=== PATIENT | female | born 1930 | race Asian ===

== ENCOUNTER 2017-01-12 07:19 | Inpatient (IN) | payer MEDICARE, MEDICAID ==
[2017-01-12 08:19] LABS: VENOUS BLOOD BASE EXCESS 0.3 mmol/L; VENOUS BLOOD HCO3 24.1 mmol/L (20-32); VENOUS BLOOD PCO2 36.4 mmHg (35-63); VENOUS BLOOD PH 7.44 (7.30-7.42)
[2017-01-12 08:22] LABS: ABSOLUTE BASOPHILS # (AUTO) 0.2 10^3/uL (0.0-0.2); ABSOLUTE EOSINOPHILS # (AUTO) 0.1 10^3/uL (0.0-0.6); ABSOLUTE LYMPHOCYTES (AUTO) 3.1 10^3/uL (0.5-4.7); ABSOLUTE MONOCYTES (AUTO) 1.3 10^3/uL (0.1-1.4); ABSOLUTE NEUT (AUTO) 9.9 10^3/uL (1.7-8.2); BASOPHILS % (AUTO) 1.2 % (0-2); EOSINOPHILS % (AUTO) 0.9 % (0-6); HEMATOCRIT 40.5 % (36.0-47.0); HEMOGLOBIN 13.2 g/dL (12.0-15.5); HGB HCT DIFFERENCE -0.9; LYMPHOCYTES % (AUTO) 21.4 % (13-45); MEAN CORPUSCULAR HGB CONC 32.7 g/dL (32.0-36.0); MEAN CORPUSCULAR VOLUME 89 fl (80-97); MONOCYTES % (AUTO) 9.2 % (3-13); RED BLOOD COUNT 4.57 10^6/uL (3.72-5.28); SEGMENTED NEUTROPHILS % (AUTO) 67.3 % (42-78); WHITE BLOOD COUNT 14.7 10^3/uL (4.0-10.5)
[2017-01-12] MEDS ORDERED: IPRATROPIUM/ALBUTEROL 0.5-2.5 MG/3 ML AMPUL NEB ONE ×3 (08:23→08:24)
[2017-01-12 08:25] LABS: PROTHROMBIN TIME 12.6 SEC (11.4-15.4)
--- NOTE | 2017-01-12 08:31 | EKG REPORT ---
SEVERITY:- ABNORMAL ECG - SINUS TACHYCARDIA ATRIAL PREMATURE COMPLEX NONSPECIFIC REPOL ABNORMALITY, DIFFUSE LEADS : Confirmed by: Martin Hamilton MD 12-Jan-2017 08:29:36
[2017-01-12 08:39] LABS: ALANINE AMINOTRANSFERASE 25 U/L (9-52); ALBUMIN 4.5 g/dL (3.5-5.0); ALKALINE PHOSPHATASE 112 U/L (38-126); ANION GAP 14 (5-19); ASPARTATE AMINO TRANSFERASE 31 U/L (14-36); BLOOD UREA NITROGEN 9 mg/dL (7-20); CALCIUM 9.5 mg/dL (8.4-10.2); CARBON DIOXIDE 25 mmol/L (22-30); CHLORIDE 101 mmol/L (98-107); CREATININE RESULT 0.93 mg/dL (0.52-1.25); GLUCOSE 128 mg/dL (75-110); SODIUM 139.9 mmol/L (137-145); TOTAL PROTEIN 8.4 g/dL (6.3-8.2)
[2017-01-12] MEDS ORDERED: METHYLPREDNISOLONE INJ 125 MG/2 ML SDV IV ONE (08:43)
--- NOTE | 2017-01-12 09:23 | ER Document Report ---
ED General - General Chief Complaint: Breathing Difficulty Stated Complaint: SHORTNESS OF BREATH Mode of Arrival: Ambulatory Information source: Patient Notes: 86-year-old female presents with complaints of shortness breath wheezing over the past few days with productive yellow sputum. Patient denies any fevers or chills TRAVEL OUTSIDE OF THE [place] IN LAST 30 DAYS: No - HPI Onset: Other - Three-day duration Onset/Duration: Persistent Quality of pain: Achy Severity: Mild Pain Level: 1 Associated symptoms: Shortness of breath Exacerbated by: Movement, Walking Relieved by: Denies Similar symptoms previously: Yes Recently seen / treated by doctor: Yes - Related Data Allergies/Adverse Reactions: No Known Allergies Allergy (Verified 01/12/17 07:24) Home Medications: Current Home Medications Amlodipine Besylate [Norvasc 5 mg Tablet] 5 mg PO DAILY 01/12/17 [History] Simvastatin [Zocor 20 mg Tablet] 20 mg PO QHS 01/12/17 [History] Past Medical History - Social History Smoking Status: Never Smoker Cigarette use (# per day): No Chew tobacco use (# tins/day): No Smoking Education Provided: No Drug Abuse: None Family History: Reviewed & Not Pertinent Patient has suicidal ideation: No Patient has homicidal ideation: No - Past Medical History Cardiac Medical History: Reports: Hx Hypercholesterolemia, Hx Hypertension Denies: Hx Coronary Artery Disease, Hx Heart Attack Pulmonary Medical History: Denies: Hx Asthma, Hx Bronchitis, Hx COPD, Hx Pneumonia Neurological Medical History: Reports: Hx Cerebrovascular Accident - 2008 right side weaker. Denies: Hx Seizures Renal/ Medical History: Denies: Hx Peritoneal Dialysis Musculoskeltal Medical History: Reports Hx Arthritis Past Surgical History: Denies: Hx Hysterectomy - Immunizations Hx Diphtheria, Pertussis, Tetanus Vaccination: No Review of Systems - Review of Systems Notes: REVIEW OF SYSTEMS: CONSTITUTIONAL : Denies fever, chills, or sweats. Denies recent illness. EENT: Denies eye, ear, throat, or mouth pain or symptoms. Denies nasal or sinus congestion or discharge. Denies throat, tongue, or mouth swelling or difficulty swallowing. CARDIOVASCULAR: Denies chest pain. Denies palpitations or racing or irregular heart beat. Denies ankle edema. RESPIRATORY: Admits shortness of breath and yellow productive cough GASTROINTESTINAL: Denies abdominal pain or distention. Denies nausea, vomiting , or diarrhea. Denies blood in vomitus, stools, or per rectum. Denies black, tarry stools. Denies constipation. GENITOURINARY: Denies difficulty urinating, painful urination, burning, frequency, blood in urine, or discharge. FEMALE GENITOURINARY: Denies vaginal bleeding, heavy or abnormal periods, irregular periods. Denies vaginal discharge or odor. MUSCULOSKELETAL: Denies back or neck pain or stiffness. Denies joint pain or swelling. SKIN: Denies rash, lesions or sores. HEMATOLOGIC : Denies easy bruising or bleeding. LYMPHATIC: Denies swollen, enlarged glands. NEUROLOGICAL: Denies confusion or altered mental status. Denies passing out or loss of consciousness. Denies dizziness or lightheadedness. Denies headache. Denies weakness or paralysis or loss of use of either side. Denies problems with gait or speech. Denies sensory loss, numbness, or tingling. Denies seizures. PSYCHIATRIC: Denies anxiety or stress. Denies depression, suicidal ideation, or homicidal ideation. ALL OTHER SYSTEMS REVIEWED AND NEGATIVE. Dictation was performed using [employer] voice recognition software PHYSICAL EXAMINATION: GENERAL: Well-appearing, well-nourished and in no acute distress. HEAD: Atraumatic, normocephalic. EYES: Pupils equal round and reactive to light, extraocular movements intact, conjunctiva are normal. ENT: Nares patent, oropharynx clear without exudates. Moist mucous membranes. NECK: Normal range of motion, supple without lymphadenopathy LUNGS: Rhonchi noted with end expiratory wheezing all throughout HEART: Tachycardic ABDOMEN: Soft, nontender, nondistended abdomen. No guarding, no rebound. No masses appreciated. Female : deferred Musculoskeletal: Normal range of motion, no pitting or edema. No cyanosis. NEUROLOGICAL: Cranial nerves grossly intact. Normal speech, normal gait. Normal sensory, motor exams PSYCH: Normal mood, normal affect. SKIN: Warm, Dry, normal turgor, no rashes or lesions noted. Physical Exam - Vital signs Vitals: Temp Pulse Resp BP Pulse Ox 98.9 F 108 H 32 H 164/71 H 95 01/12/17 07:25 01/12/17 07:25 01/12/17 07:25 01/12/17 07:25 01/12/17 07:25 Course - Re-evaluation Re-evalutation: 01/12/17 12:40 Given that patient has an elevated white count productive cough I believe she has a component pneumonia even though chest x-ray is negative, patient was given breathing treatments and notes significant improvement in her breathing however when ambulating heart rate is still in the 130s to 140s. Patient will be admitted to her primary care physician - Vital Signs Vital signs: Temp Pulse Resp BP Pulse Ox 98.9 F 108 H 30 H 164/71 H 96 01/12/17 07:25 01/12/17 07:25 01/12/17 08:00 01/12/17 07:25 01/12/17 08:01 - Laboratory Result Diagrams: 01/12/17 08:03 01/12/17 08:03 Laboratory results interpreted by me: 01/12/17 01/12/17 01/12/17 07:54 08:03 08:03 WBC 14.7 H Absolute Neutrophils 9.9 H VBG pH Est GFR (Non-Af Amer) 57 L Glucose 128 H POC Glucose 123 H Total Protein 8.4 H 01/12/17 08:03 WBC Absolute Neutrophils VBG pH 7.44 H Est GFR (Non-Af Amer) Glucose POC Glucose Total Protein - Diagnostic Test Radiology reviewed: Image reviewed, Reports reviewed - EKG Interpretation by Me EKG shows normal: Sinus rhythm, [place], Intervals, QRS Complexes Rate: Tachycardia - Consults islas Time consulted: 10:03 Reason for consultation: 01/12/17 10:03 admission Discharge - Discharge Clinical Impression: Tachycardia COPD (chronic obstructive pulmonary disease) Qualifiers: COPD type: unspecified COPD Qualified Code(s): J44.9 - Chronic obstructive pulmonary disease, unspecified Pneumonia Qualifiers: Pneumonia type: due to unspecified organism Laterality: unspecified laterality Lung location: unspecified part of lung Qualified Code(s): J18.9 - Pneumonia, unspecified organism Condition: Stable Disposition: ADMITTED INPATIENT Admitting Provider: Is[facility] Unit Admitted: Telemetry Referrals: TERESITA ISLAS MD [Primary Care Provider] - Follow up as needed
[2017-01-12] MEDS ORDERED: NORMAL SALINE 1000 ML 1,000 ML IV ONE (11:04)
[2017-01-12] MEDS ORDERED: CEFTRIAXONE 1 GM/D5W RTU 50 ML IV ONE (11:04)
[2017-01-12] MEDS: LEVALBUTEROL HCL NEB 0.63 MG/3 ML AMPUL NEB SCH ×3 (12:55→19:40)
[2017-01-12 13:36] LABS: CREATINE KINASE MB 0.84 ng/mL (<4.55)
[2017-01-12 13:40] LABS: TROPONIN I < 0.012 ng/mL
[2017-01-12 13:52] LABS: APPEARANCE,URINE SLIGHTLY-CLOUDY; BILIRUBIN,URINE NEGATIVE (NEGATIVE); GLUCOSE, URINE NEGATIVE (NEGATIVE); KETONES,URINE NEGATIVE (NEGATIVE); LEUKOCYTE ESTERASE,URINE NEGATIVE (NEGATIVE); NITRITE,URINE NEGATIVE (NEGATIVE); PROTEIN,URINE NEGATIVE (NEGATIVE); URINE SPECIFIC GRAVITY 1.009; UROBILINOGEN,URINE NEGATIVE mg/dL (<2.0)
[2017-01-12] MEDS: NORMAL SALINE 1000 ML 1,000 ML IV PRN ×2 (13:55→21:50)
[2017-01-12] MEDS ORDERED: METHYLPREDNISOLONE INJ 40 MG/1 ML SDV IV SCH (14:00)
[2017-01-12] MEDS ORDERED: AMLODIPINE BESYLATE 5 MG TABLET PO ONE (15:00)
[2017-01-12] MEDS: ACETAMINOPHEN 325 MG TABLET PO PRN ×2 (16:14→21:52)
[2017-01-12] MEDS: LANSOPRAZOLE 15 MG TAB.RAP.DR PO SCH (16:50)
--- NOTE | 2017-01-12 17:01 | PDOC H&P ---
History of Present Illness Admission Date/PCP: 01/12/17 11:58 TERESITA HICKS MD Patient complains of: sob/whezzing /cough History of Present Illness: MATHEW BOUDREAUX is a 86 year old female This is a 86-year-old female came to the emergency department with a complaint of shortness of the breath cough congestions and tachycardic for the last several days. Patient was seen in the office last week with a cough and congestions and patient was prescribed Augmentin and some allergy medications but patient is not responds very well. In the emergency department patient's chest x-ray shows some interstitial lung disease and patient's white count was elevated and patient was hypoxic and wheezing and patient was given the Solu- Medrol and IV antibiotic. When I saw the patient's patient is currently doing fair and patient's was given IV fluid and heart rate is also coming down we will admit the patient's for the bronchitis and possible pneumonia and further evaluations. Past Medical History Cardiac Medical History: Reports: Hyperlipidema, Hypertension Denies: Coronary Artery Disease, Myocardial Infarction Pulmonary Medical History: Denies: Asthma, Bronchitis, Chronic Obstructive Pulmonary Disease (COPD), Pneumonia Neurological Medical History: Reports: Ischemic CVA Denies: Seizures GI Medical History: Reports: Gastroesophageal Reflux Disease, Peptic Ulcer Disease Musculoskeltal Medical History: Reports: Arthritis Hematology: Reports: Anemia Past Surgical History Past Surgical History: Denies: Hysterectomy Social History Smoking Status: Never Smoker Family History Family History: Reviewed & Not Pertinent Parental Family History Reviewed: Yes Children Family History Reviewed: Yes Sibling(s) Family History Reviewed.: Yes Medication/Allergy Home Medications: Amlodipine Besylate [Norvasc 5 mg Tablet] 5 mg PO DAILY 01/12/17 Simvastatin [Zocor 20 mg Tablet] 20 mg PO QHS 01/12/17 Allergies/Adverse Reactions: No Known Allergies Allergy (Verified 01/12/17 07:24) Review of Systems Constitutional: PRESENT: fatigue, weakness Cardiovascular: PRESENT: dyspnea on exertion Respiratory: PRESENT: cough Gastrointestinal: ABSENT: as per HPI, abdominal pain, bloating, coffee ground emesis, constipation, diarrhea, dysphagia, heartburn, hematemesis, hematochezia , melena, nausea, vomiting, other Genitourinary: ABSENT: as per HPI, difficulty urinating, dysuria, hematuria, nocturia, other Neurological: ABSENT: as per HPI, abnormal gait, abnormal movements, abnormal speech, confusion, convulsions, dizziness, focal weakness, frequent falls, lack of coordination, memory loss, numbness, paresthesias, restless legs, syncope, tingling, tremor(s), vertigo, weakness, other Psychiatric: ABSENT: as per HPI, anxiety, depression, hallucinations, homidical ideation, suicidal ideation, other Physical Exam Vital Signs: Temp Pulse Resp BP Pulse Ox 98.4 F 102 H 11 L 138/60 H 100 01/12/17 13:25 01/12/17 13:25 01/12/17 13:25 01/12/17 13:25 01/12/17 13:25 General appearance: PRESENT: no acute distress, well-developed, well-nourished Head exam: PRESENT: atraumatic, normocephalic Eye exam: PRESENT: conjunctiva pink, EOMI, PERRLA. ABSENT: scleral icterus Ear exam: PRESENT: normal external ear exam Mouth exam: PRESENT: moist, tongue midline Neck exam: PRESENT: full ROM. ABSENT: carotid bruit, JVD, lymphadenopathy, thyromegaly Respiratory exam: PRESENT: decreased breath sounds, wheezes Cardiovascular exam: PRESENT: RRR. ABSENT: diastolic murmur, rubs, systolic murmur Pulses: PRESENT: normal dorsalis pedis pul, +2 pedal pulses bilateral Vascular exam: PRESENT: normal capillary refill GI/Abdominal exam: PRESENT: normal bowel sounds, soft. ABSENT: distended, guarding, mass, organolmegaly, rebound, tenderness Rectal exam: PRESENT: deferred Extremities exam: ABSENT: pedal edema Neurological exam: PRESENT: alert, awake, oriented to person, oriented to place , oriented to time, oriented to situation, CN II-XII grossly intact. ABSENT: motor sensory deficit Psychiatric exam: PRESENT: appropriate affect, normal mood. ABSENT: homicidal ideation, suicidal ideation Skin exam: PRESENT: dry, intact, warm. ABSENT: cyanosis, rash Results Laboratory Results: 01/12/17 13:35 Urine Color YELLOW Urine Appearance SLIGHTLY-CLOUDY Urine pH 6.0 Ur Specific [place] 1.009 Urine Protein NEGATIVE Urine Glucose (UA) NEGATIVE Urine Ketones NEGATIVE Urine Blood NEGATIVE Urine Nitrite NEGATIVE Ur Leukocyte Esterase NEGATIVE Urine WBC (Auto) 1 Urine RBC (Auto) 1 Impressions: Chest/Abdomen CTA 01/12/17 00:00 IMPRESSION: NORMAL CTA OF THE CHEST. NO PULMONARY EMBOLI. Chest X-Ray 01/12/17 07:29 IMPRESSION: No acute cardiopulmonary findings. Mild chronic interstitial lung disease pattern. Assessment & Plan - Diagnosis (1) COPD (chronic obstructive pulmonary disease) Qualifiers: COPD type: unspecified COPD Qualified Code(s): J44.9 - Chronic obstructive pulmonary disease, unspecified Is this a current diagnosis for this admission?: YesPlan: We will start the patient on the Solu-Medrol and nebulizer treatment (2) Acute bronchitis Qualifiers: Bronchitis organism: unspecified organism Qualified Code(s): J20.9 - Acute bronchitis, unspecified Is this a current diagnosis for this admission?: YesPlan: Start the patient on IV antibiotic nebulizer treatment and continues to monitor (3) Hypertension Is this a current diagnosis for this admission?: YesPlan: Currently stable (4) Peptic ulcer disease Is this a current diagnosis for this admission?: YesPlan: Start the patient on the Pepcid (5) Pneumonia Qualifiers: Pneumonia type: due to unspecified organism Laterality: unspecified laterality Lung location: unspecified part of lung Qualified Code(s): J18.9 - Pneumonia, unspecified organism Is this a current diagnosis for this admission?: YesPlan: Most likely leukocytosis with outpatients failure of the Augmentin most likely patient underlying some pneumonia with the bronchitis (6) Respiratory distress Is this a current diagnosis for this admission?: YesPlan: Most likely a from the bronchitis is getting better patient's CT angiogram is negative. - Time Time Spent: 30 to 50 Minutes Medications reviewed and adjusted accordingly: Yes Anticipated discharge: Home Within: Other - Inpatient Certification Medical Necessity: Failure to Improve With Outpatient Therapy, Need for Nebulizer Therapy and Monitoring of Response, Need for IV Antibiotics Post Hospital Care: D/C Mgmt Consultant Documentation - Plan Summary Plan Summary: Admit the [facility] start the patient on IV antibiotic respiratory treatments and steroid. Patient's CT angiogram is negative and initial cardiac enzymes also negative. We will continue to monitor the patient's discussed with the patient's family
[2017-01-12] MEDS: METHYLPREDNISOLONE INJ 125 MG/2 ML SDV IV SCH (17:38)
[2017-01-12] MEDS: AZITHROMYCIN 250 MG TABLET PO SCH (17:38)
[2017-01-12 18:42] LABS: CREATINE KINASE MB 1.05 ng/mL (<4.55)
[2017-01-12 18:47] LABS: TROPONIN I < 0.012 ng/mL
[2017-01-12] MEDS: SIMVASTATIN 10 MG TABLET PO SCH (21:51)
[2017-01-12] MEDS: CEFEPIME 1 GM/D5W RTU 50 ML IV SCH (21:55)
[2017-01-13] MEDS: LEVALBUTEROL HCL NEB 0.63 MG/3 ML AMPUL NEB SCH ×6 (00:13→20:01)
[2017-01-13 00:58] LABS: CREATINE KINASE MB 2.15 ng/mL (<4.55)
[2017-01-13 01:00] LABS: TROPONIN I < 0.012 ng/mL
[2017-01-13] MEDS: METHYLPREDNISOLONE INJ 125 MG/2 ML SDV IV SCH (02:13)
[2017-01-13] MEDS: LANSOPRAZOLE 15 MG TAB.RAP.DR PO SCH ×2 (05:23→17:07)
[2017-01-13] MEDS: ENOXAPARIN SODIUM INJ 40 MG/0.4 ML DISP.SYRIN SUBCUT SCH (07:49)
--- NOTE | 2017-01-13 08:04 | PDOC PROGRESS REPORT ---
Subjective Progress Note for:: 01/13/17 Subjective:: Patient is doing fair no other complaints of chest pain no shortness of the breath. Still have a cough productive wheezing is much better. Physical Exam Vital Signs: Temp Pulse Resp BP Pulse Ox 98.3 F 110 H 16 132/63 H 94 01/13/17 00:00 01/13/17 07:00 01/13/17 04:00 01/13/17 00:00 01/13/17 04:00 Intake & Output 01/12/17 01/13/17 01/14/17 06:59 06:59 06:59 Intake Total 1385 Balance 1385 Weight 52.3 kg General appearance: PRESENT: no acute distress, well-developed, well-nourished Head exam: PRESENT: atraumatic, normocephalic Eye exam: PRESENT: conjunctiva pink, EOMI, PERRLA. ABSENT: scleral icterus Ear exam: PRESENT: normal external ear exam Mouth exam: PRESENT: moist, tongue midline Neck exam: PRESENT: full ROM. ABSENT: carotid bruit, JVD, lymphadenopathy, thyromegaly Respiratory exam: PRESENT: clear to auscultation nakia Cardiovascular exam: PRESENT: RRR. ABSENT: diastolic murmur, rubs, systolic murmur Pulses: PRESENT: normal dorsalis pedis pul, +2 pedal pulses bilateral Vascular exam: PRESENT: normal capillary refill GI/Abdominal exam: PRESENT: normal bowel sounds, soft. ABSENT: distended, guarding, mass, organolmegaly, rebound, tenderness Rectal exam: PRESENT: deferred Neurological exam: PRESENT: alert, awake, oriented to person, oriented to place , oriented to time, oriented to situation, CN II-XII grossly intact. ABSENT: motor sensory deficit Psychiatric exam: PRESENT: appropriate affect, normal mood. ABSENT: homicidal ideation, suicidal ideation Skin exam: PRESENT: dry, intact, warm. ABSENT: cyanosis, rash Results Laboratory Results: 01/12/17 13:35 Urine Color YELLOW Urine Appearance SLIGHTLY-CLOUDY Urine pH 6.0 Ur Specific [place] 1.009 Urine Protein NEGATIVE Urine Glucose (UA) NEGATIVE Urine Ketones NEGATIVE Urine Blood NEGATIVE Urine Nitrite NEGATIVE Ur Leukocyte Esterase NEGATIVE Urine WBC (Auto) 1 Urine RBC (Auto) 1 01/12/17 01/12/17 01/13/17 18:05 18:05 00:25 Creatine Kinase 138 H 164 H CK-MB (CK-2) 1.05 Troponin I < 0.012 01/13/17 00:25 Creatine Kinase CK-MB (CK-2) 2.15 Troponin I < 0.012 Impressions: Chest/Abdomen CTA 01/12/17 00:00 IMPRESSION: NORMAL CTA OF THE CHEST. NO PULMONARY EMBOLI. Chest X-Ray 01/12/17 07:29 IMPRESSION: No acute cardiopulmonary findings. Mild chronic interstitial lung disease pattern. Assessment & Plan - Diagnosis (1) COPD (chronic obstructive pulmonary disease) Qualifiers: COPD type: unspecified COPD Qualified Code(s): J44.9 - Chronic obstructive pulmonary disease, unspecified Is this a current diagnosis for this admission?: YesPlan: decrease the IV steroid and if remained stable [place] switched to by mouth steroid in the morning (2) Acute bronchitis Qualifiers: Bronchitis organism: unspecified organism Qualified Code(s): J20.9 - Acute bronchitis, unspecified Is this a current diagnosis for this admission?: YesPlan: Continues IV antibiotic (3) Hypertension Is this a current diagnosis for this admission?: YesPlan: Currently stable (4) Peptic ulcer disease Is this a current diagnosis for this admission?: YesPlan: Start the patient on the Pepcid (5) Pneumonia Qualifiers: Pneumonia type: due to unspecified organism Laterality: unspecified laterality Lung location: unspecified part of lung Qualified Code(s): J18.9 - Pneumonia, unspecified organism Is this a current diagnosis for this admission?: YesPlan: Most likely leukocytosis with outpatients failure of the Augmentin most likely patient underlying some pneumonia with the bronchitis (6) Respiratory distress Is this a current diagnosis for this admission?: YesPlan: Most likely a from the bronchitis is getting better patient's CT angiogram is negative. - Time Time Spent with patient: 15-24 minutes Medications reviewed and adjusted accordingly: Yes Anticipated discharge: Home Within: within 48 hours - Inpatient Certification Medical Necessity: Need Close Monitoring Due to Risk of Patient Decompensation, Need for IV Antibiotics Post Hospital Care: D/C Ceramics Teacher Documentation - Plan Summary Plan Summary: Continues the current medications stop IV fluid and decrease the steroid and maybe is switch to by mouth in the morning
[2017-01-13 08:18] LABS: ABSOLUTE BASOPHILS # (AUTO) 0.1 10^3/uL (0.0-0.2); ABSOLUTE LYMPHOCYTES (AUTO) 1.8 10^3/uL (0.5-4.7); ABSOLUTE MONOCYTES (AUTO) 0.4 10^3/uL (0.1-1.4); ABSOLUTE NEUT (AUTO) 14.9 10^3/uL (1.7-8.2); BASOPHILS % (AUTO) 0.5 % (0-2); HEMATOCRIT 38.1 % (36.0-47.0); HEMOGLOBIN 12.4 g/dL (12.0-15.5); HGB HCT DIFFERENCE -0.9; LYMPHOCYTES % (AUTO) 10.5 % (13-45); MEAN CORPUSCULAR HEMOGLOBIN 29.6 pg (27.0-33.4); MEAN CORPUSCULAR HGB CONC 32.7 g/dL (32.0-36.0); MEAN CORPUSCULAR VOLUME 91 fl (80-97); MONOCYTES % (AUTO) 2.3 % (3-13); RED BLOOD COUNT 4.21 10^6/uL (3.72-5.28); RED CELL DISTRIBUTION WIDTH 14.4 % (11.5-14.0); SEGMENTED NEUTROPHILS % (AUTO) 86.7 % (42-78); WHITE BLOOD COUNT 17.1 10^3/uL (4.0-10.5)
[2017-01-13 09:01] LABS: ANION GAP 14 (5-19); BLOOD UREA NITROGEN 18 mg/dL (7-20); CALCIUM 9.7 mg/dL (8.4-10.2); CARBON DIOXIDE 21 mmol/L (22-30); CHLORIDE 109 mmol/L (98-107); GLUCOSE 155 mg/dL (75-110); MAGNESIUM 2.4 mg/dL (1.6-2.3); POTASSIUM 4.3 mmol/L (3.6-5.0); SODIUM 144.4 mmol/L (137-145)
[2017-01-13] MEDS: METHYLPREDNISOLONE INJ 40 MG/1 ML SDV IV SCH ×2 (09:24→17:07)
[2017-01-13] MEDS: GUAIFENESIN SYRP 200 MG/10 ML UDC PO PRN (09:24)
[2017-01-13] MEDS: AMLODIPINE BESYLATE 5 MG TABLET PO SCH (09:24)
[2017-01-13] MEDS: CEFEPIME 1 GM/D5W RTU 50 ML IV SCH ×2 (09:25→22:52)
[2017-01-13] MEDS: AZITHROMYCIN 250 MG TABLET PO SCH (17:07)
[2017-01-13] MEDS: SIMVASTATIN 10 MG TABLET PO SCH (22:52)
[2017-01-14] MEDS: LEVALBUTEROL HCL NEB 0.63 MG/3 ML AMPUL NEB SCH ×7 (00:01→23:27)
[2017-01-14] MEDS: METHYLPREDNISOLONE INJ 40 MG/1 ML SDV IV SCH ×3 (01:42→17:13)
[2017-01-14 05:43] LABS: HEMATOCRIT 37.2 % (36.0-47.0); HEMOGLOBIN 12.4 g/dL (12.0-15.5); MEAN CORPUSCULAR HEMOGLOBIN 29.8 pg (27.0-33.4); MEAN CORPUSCULAR HGB CONC 33.4 g/dL (32.0-36.0); MEAN CORPUSCULAR VOLUME 89 fl (80-97); RED BLOOD COUNT 4.16 10^6/uL (3.72-5.28); RED CELL DISTRIBUTION WIDTH 14.4 % (11.5-14.0); WHITE BLOOD COUNT 26.3 10^3/uL (4.0-10.5)
[2017-01-14] MEDS: LANSOPRAZOLE 15 MG TAB.RAP.DR PO SCH ×2 (05:58→17:14)
[2017-01-14] MEDS: GUAIFENESIN SYRP 200 MG/10 ML UDC PO PRN (05:58)
[2017-01-14 05:59] LABS: ANION GAP 16 (5-19); BLOOD UREA NITROGEN 26 mg/dL (7-20); CALCIUM 9.8 mg/dL (8.4-10.2); CARBON DIOXIDE 20 mmol/L (22-30); CHLORIDE 108 mmol/L (98-107); CREATININE RESULT 0.85 mg/dL (0.52-1.25); GLUCOSE 144 mg/dL (75-110); POTASSIUM 4.1 mmol/L (3.6-5.0); SODIUM 144.4 mmol/L (137-145)
[2017-01-14 06:08] LABS: BASOPHILS % (MANUAL) 0 % (0-2); EOSINOPHILS % (MANUAL) 0 % (0-6); LYMPHOCYTES % (MANUAL) 4 % (13-45); TOTAL CELLS COUNTED 100
[2017-01-14 06:11] LABS: ANISOCYTOSIS 1+; BURR CELLS 1+; OVALOCYTES 1+; POIKILOCYTOSIS 2+; TOXIC VACUOLATION PRESENT
[2017-01-14] MEDS: ENOXAPARIN SODIUM INJ 40 MG/0.4 ML DISP.SYRIN SUBCUT SCH (09:42)
[2017-01-14] MEDS: AMLODIPINE BESYLATE 5 MG TABLET PO SCH (09:43)
[2017-01-14] MEDS: CEFEPIME 1 GM/D5W RTU 50 ML IV SCH ×2 (09:44→21:44)
[2017-01-14] MEDS ORDERED: LEVALBUTEROL HCL NEB 0.63 MG/3 ML AMPUL NEB PRN (14:00)
--- NOTE | 2017-01-14 16:43 | PDOC PROGRESS REPORT ---
Subjective Progress Note for:: 01/14/17 Subjective:: Patient was seen by the bedside, he was admitted for COPD exacerbation, he has no new complaints today Physical Exam Vital Signs: Temp Pulse Resp BP Pulse Ox 98.9 F 76 16 140/63 H 96 01/14/17 11:50 01/14/17 14:00 01/14/17 12:46 01/14/17 11:50 01/14/17 11:50 Intake & Output 01/13/17 01/14/17 01/15/17 06:59 06:59 06:59 Intake Total 1385 1210 Balance 1385 1210 Weight 52.3 kg 48.6 kg General appearance: PRESENT: no acute distress Eye exam: PRESENT: PERRLA Respiratory exam: PRESENT: decreased breath sounds Cardiovascular exam: PRESENT: +S1, +S2 Neurological exam: PRESENT: alert, CN II-XII grossly intact Results Laboratory Results: 01/14/17 04:40 01/14/17 04:40 01/14/17 01/14/17 04:40 04:40 WBC 26.3 H RBC 4.16 Hgb 12.4 Hct 37.2 MCV 89 MCH 29.8 MCHC 33.4 RDW 14.4 H Plt Count 397 Seg Neutrophils % Not Reportable Lymphocytes % Not Reportable Monocytes % Not Reportable Eosinophils % Not Reportable Basophils % Not Reportable Absolute Neutrophils Not Reportable Absolute Lymphocytes Not Reportable Absolute Monocytes Not Reportable Absolute Eosinophils Not Reportable Absolute Basophils Not Reportable Sodium 144.4 Potassium 4.1 Chloride 108 H Carbon Dioxide 20 L Anion Gap 16 BUN 26 H Creatinine 0.85 Est GFR ( Amer) > 60 Est GFR (Non-Af Amer) > 60 Glucose 144 H Calcium 9.8 01/12/17 01/12/17 01/13/17 18:05 18:05 00:25 Creatine Kinase 138 H 164 H CK-MB (CK-2) 1.05 Troponin I < 0.012 01/13/17 00:25 Creatine Kinase CK-MB (CK-2) 2.15 Troponin I < 0.012 Impressions: Chest/Abdomen CTA 01/12/17 00:00 IMPRESSION: NORMAL CTA OF THE CHEST. NO PULMONARY EMBOLI. Chest X-Ray 01/12/17 07:29 IMPRESSION: No acute cardiopulmonary findings. Mild chronic interstitial lung disease pattern. Assessment & Plan - Diagnosis (1) Chronic obstructive asthma with acute exacerbation Is this a current diagnosis for this admission?: YesPlan: Continue present treatment (2) Hypertension Qualifiers: Hypertension type: essential hypertension Qualified Code(s): I10 - Essential (primary) hypertension Is this a current diagnosis for this admission?: Yes (3) Peptic ulcer disease Is this a current diagnosis for this admission?: Yes (4) Pneumonia Qualifiers: Pneumonia type: due to unspecified organism Laterality: unspecified laterality Lung location: unspecified part of lung Qualified Code(s): J18.9 - Pneumonia, unspecified organism Is this a current diagnosis for this admission?: Yes
[2017-01-14] MEDS: AZITHROMYCIN 250 MG TABLET PO SCH (17:14)
[2017-01-14] MEDS: SIMVASTATIN 10 MG TABLET PO SCH (21:44)
[2017-01-15] MEDS: METHYLPREDNISOLONE INJ 40 MG/1 ML SDV IV SCH ×2 (02:41→10:05)
[2017-01-15] MEDS: LEVALBUTEROL HCL NEB 0.63 MG/3 ML AMPUL NEB SCH ×5 (04:24→20:08)
[2017-01-15] MEDS: LANSOPRAZOLE 15 MG TAB.RAP.DR PO SCH ×2 (06:19→16:29)
[2017-01-15 06:25] LABS: HEMATOCRIT 36.2 % (36.0-47.0); HEMOGLOBIN 11.9 g/dL (12.0-15.5); HGB HCT DIFFERENCE -0.5; MEAN CORPUSCULAR HEMOGLOBIN 29.6 pg (27.0-33.4); MEAN CORPUSCULAR HGB CONC 32.9 g/dL (32.0-36.0); MEAN CORPUSCULAR VOLUME 90 fl (80-97); RED BLOOD COUNT 4.03 10^6/uL (3.72-5.28); RED CELL DISTRIBUTION WIDTH 14.2 % (11.5-14.0); WHITE BLOOD COUNT 15.9 10^3/uL (4.0-10.5)
[2017-01-15 06:56] LABS: BAND NEUTROPHILS % (MANUAL) 1 % (3-5); BASOPHILS % (MANUAL) 0 % (0-2); EOSINOPHILS % (MANUAL) 0 % (0-6); LYMPHOCYTES % (MANUAL) 6 % (13-45); TOTAL CELLS COUNTED 100
[2017-01-15 06:58] LABS: ANISOCYTOSIS SLIGHT; OVALOCYTES SLIGHT
[2017-01-15 08:20] LABS: ANION GAP 11 (5-19); BLOOD UREA NITROGEN 25 mg/dL (7-20); CALCIUM 9.4 mg/dL (8.4-10.2); CARBON DIOXIDE 24 mmol/L (22-30); CHLORIDE 107 mmol/L (98-107); CREATININE RESULT 0.82 mg/dL (0.52-1.25); GLUCOSE 148 mg/dL (75-110); POTASSIUM 4.3 mmol/L (3.6-5.0); SODIUM 142.2 mmol/L (137-145)
[2017-01-15] MEDS: ENOXAPARIN SODIUM INJ 40 MG/0.4 ML DISP.SYRIN SUBCUT SCH (08:26)
[2017-01-15] MEDS: CEFEPIME 1 GM/D5W RTU 50 ML IV SCH ×2 (10:04→22:37)
[2017-01-15] MEDS: AMLODIPINE BESYLATE 5 MG TABLET PO SCH (10:05)
--- NOTE | 2017-01-15 15:39 | PDOC PROGRESS REPORT ---
Subjective Progress Note for:: 01/15/17 Subjective:: She was seen by the bedside, she has no new complaints, on auscultation of the chest there is no more wheezing, Solu-Medrol will be discontinued. Physical Exam Vital Signs: Temp Pulse Resp BP Pulse Ox 98.3 F 82 20 139/56 H 98 01/15/17 11:40 01/15/17 14:00 01/15/17 11:40 01/15/17 11:40 01/15/17 11:40 Intake & Output 01/14/17 01/15/17 01/16/17 06:59 06:59 06:59 Intake Total 1210 890 Balance 1210 890 Weight 48.6 kg 48.9 kg General appearance: PRESENT: no acute distress Head exam: PRESENT: atraumatic, normocephalic Eye exam: PRESENT: conjunctiva pink, EOMI, PERRLA Ear exam: PRESENT: normal external ear exam Mouth exam: PRESENT: moist, tongue midline Neck exam: PRESENT: full ROM Respiratory exam: PRESENT: clear to auscultation nakia Cardiovascular exam: PRESENT: RRR, +S1, +S2 Pulses: PRESENT: normal dorsalis pedis pul, +2 pedal pulses bilateral Vascular exam: PRESENT: normal capillary refill GI/Abdominal exam: PRESENT: normal bowel sounds, soft Rectal exam: PRESENT: deferred Neurological exam: PRESENT: alert, oriented to person, oriented to place, oriented to time, oriented to situation, CN II-XII grossly intact Psychiatric exam: PRESENT: appropriate affect, normal mood Skin exam: PRESENT: dry, intact, warm. ABSENT: cyanosis, rash Results Laboratory Results: 01/15/17 05:48 01/15/17 07:50 01/15/17 01/15/17 01/15/17 05:48 05:48 07:50 WBC 15.9 H RBC 4.03 Hgb 11.9 L Hct 36.2 MCV 90 MCH 29.6 MCHC 32.9 RDW 14.2 H Plt Count 370 Seg Neutrophils % Not Reportable Lymphocytes % Not Reportable Monocytes % Not Reportable Eosinophils % Not Reportable Basophils % Not Reportable Absolute Neutrophils Not Reportable Absolute Lymphocytes Not Reportable Absolute Monocytes Not Reportable Absolute Eosinophils Not Reportable Absolute Basophils Not Reportable Sodium Cancelled 142.2 Potassium Cancelled 4.3 Chloride Cancelled 107 Carbon Dioxide Cancelled 24 Anion Gap Cancelled 11 BUN Cancelled 25 H Creatinine Cancelled 0.82 Est GFR ( Amer) Cancelled > 60 Est GFR (Non-Af Amer) Cancelled > 60 Glucose Cancelled 148 H Calcium Cancelled 9.4 01/12/17 13:35 Clean Catch Midstream Urine Culture - Final Enterococcus Faecalis(Group D) 01/12/17 01/12/17 01/13/17 18:05 18:05 00:25 Creatine Kinase 138 H 164 H CK-MB (CK-2) 1.05 Troponin I < 0.012 01/13/17 00:25 Creatine Kinase CK-MB (CK-2) 2.15 Troponin I < 0.012 Impressions: Chest/Abdomen CTA 01/12/17 00:00 IMPRESSION: NORMAL CTA OF THE CHEST. NO PULMONARY EMBOLI. Chest X-Ray 01/12/17 07:29 IMPRESSION: No acute cardiopulmonary findings. Mild chronic interstitial lung disease pattern. Assessment & Plan - Diagnosis (1) Chronic obstructive asthma with acute exacerbation Is this a current diagnosis for this admission?: YesPlan: The Solu-Medrol will be discontinued and she was started on p.o. prednisone. Urine culture grew Enterococcus faecalis but the count is subsignificant current (2) Hypertension Qualifiers: Hypertension type: essential hypertension Qualified Code(s): I10 - Essential (primary) hypertension Is this a current diagnosis for this admission?: Yes (3) Peptic ulcer disease Is this a current diagnosis for this admission?: Yes (4) Pneumonia Qualifiers: Pneumonia type: due to unspecified organism Laterality: unspecified laterality Lung location: unspecified part of lung Qualified Code(s): J18.9 - Pneumonia, unspecified organism Is this a current diagnosis for this admission?: Yes
[2017-01-15] MEDS ORDERED: PREDNISONE 20 MG TABLET PO ONE (16:00)
[2017-01-15] MEDS: AZITHROMYCIN 250 MG TABLET PO SCH (17:56)
[2017-01-15] MEDS: SIMVASTATIN 10 MG TABLET PO SCH (22:36)
[2017-01-16] MEDS: LEVALBUTEROL HCL NEB 0.63 MG/3 ML AMPUL NEB SCH ×7 (00:22→23:39)
[2017-01-16] MEDS: LANSOPRAZOLE 15 MG TAB.RAP.DR PO SCH ×2 (05:29→17:21)
[2017-01-16] MEDS: ENOXAPARIN SODIUM INJ 40 MG/0.4 ML DISP.SYRIN SUBCUT SCH (08:38)
--- NOTE | 2017-01-16 09:08 | PDOC PROGRESS REPORT ---
Subjective Progress Note for:: 01/16/17 Subjective:: Patient is doing much better since he had any chest pain denied any shortness of the breath patient's p.o. intake is good. Physical Exam Vital Signs: Temp Pulse Resp BP Pulse Ox 98.4 F 78 18 145/57 H 97 01/16/17 07:55 01/16/17 08:12 01/16/17 08:12 01/16/17 07:55 01/16/17 08:12 Intake & Output 01/15/17 01/16/17 01/17/17 06:59 06:59 06:59 Intake Total 890 250 Balance 890 250 Weight 48.9 kg 48.4 kg General appearance: PRESENT: no acute distress, well-developed, well-nourished Head exam: PRESENT: atraumatic, normocephalic Eye exam: PRESENT: conjunctiva pink, EOMI, PERRLA. ABSENT: scleral icterus Ear exam: PRESENT: normal external ear exam Mouth exam: PRESENT: moist, tongue midline Neck exam: PRESENT: full ROM. ABSENT: carotid bruit, JVD, lymphadenopathy, thyromegaly Respiratory exam: PRESENT: wheezes Cardiovascular exam: PRESENT: RRR. ABSENT: diastolic murmur, rubs, systolic murmur Pulses: PRESENT: normal dorsalis pedis pul, +2 pedal pulses bilateral Vascular exam: PRESENT: normal capillary refill GI/Abdominal exam: PRESENT: normal bowel sounds, soft. ABSENT: distended, guarding, mass, organolmegaly, rebound, tenderness Rectal exam: PRESENT: deferred Neurological exam: PRESENT: alert, awake, oriented to person, oriented to place , oriented to time, oriented to situation, CN II-XII grossly intact. ABSENT: motor sensory deficit Psychiatric exam: PRESENT: appropriate affect, normal mood. ABSENT: homicidal ideation, suicidal ideation Skin exam: PRESENT: dry, intact, warm. ABSENT: cyanosis, rash Results Laboratory Results: 01/15/17 05:48 01/15/17 07:50 01/14/17 00:28 Sputum Gram Stain - Final 01/12/17 01/12/17 01/13/17 18:05 18:05 00:25 Creatine Kinase 138 H 164 H CK-MB (CK-2) 1.05 Troponin I < 0.012 01/13/17 00:25 Creatine Kinase CK-MB (CK-2) 2.15 Troponin I < 0.012 Impressions: Chest/Abdomen CTA 01/12/17 00:00 IMPRESSION: NORMAL CTA OF THE CHEST. NO PULMONARY EMBOLI. Chest X-Ray 01/12/17 07:29 IMPRESSION: No acute cardiopulmonary findings. Mild chronic interstitial lung disease pattern. Assessment & Plan - Diagnosis (1) COPD (chronic obstructive pulmonary disease) Qualifiers: COPD type: unspecified COPD Qualified Code(s): J44.9 - Chronic obstructive pulmonary disease, unspecified Is this a current diagnosis for this admission?: YesPlan: Currently all stable since start the patient in the nebulizer treatment as needed and put the patient on Advair (2) Acute bronchitis Qualifiers: Bronchitis organism: unspecified organism Qualified Code(s): J20.9 - Acute bronchitis, unspecified Is this a current diagnosis for this admission?: YesPlan: Currently resolving (3) Hypertension Qualifiers: Hypertension type: essential hypertension Qualified Code(s): I10 - Essential (primary) hypertension Is this a current diagnosis for this admission?: YesPlan: Currently stable (4) Peptic ulcer disease Is this a current diagnosis for this admission?: YesPlan: Start the patient on the Pepcid (5) Pneumonia Qualifiers: Pneumonia type: due to unspecified organism Laterality: unspecified laterality Lung location: unspecified part of lung Qualified Code(s): J18.9 - Pneumonia, unspecified organism Is this a current diagnosis for this admission?: YesPlan: Most likely leukocytosis with outpatients failure of the Augmentin most likely patient underlying some pneumonia with the bronchitis (6) Respiratory distress Is this a current diagnosis for this admission?: YesPlan: Most likely a from the bronchitis is getting better patient's CT angiogram is negative. - Time Time Spent with patient: Less than 15 minutes Medications reviewed and adjusted accordingly: Yes Anticipated discharge: Home Within: within 24 hours - Inpatient Certification Post Hospital Care: D/C [employer] Feller Documentation - Plan Summary Plan Summary: We will DC all IV medications start on the p.o. and hopefully discharge tomorrow morning
[2017-01-16] MEDS: AZITHROMYCIN 250 MG TABLET PO SCH (09:30)
[2017-01-16] MEDS: AMLODIPINE BESYLATE 5 MG TABLET PO SCH (09:30)
[2017-01-16] MEDS: PREDNISONE 20 MG TABLET PO SCH (09:30)
[2017-01-16] MEDS: FLUTICASONE/SALMETEROL DISKUS 100-50 MCG/DOSE IH SCH ×2 (09:55→22:07)
[2017-01-16] MEDS ORDERED: PREDNISONE 20 MG TABLET PO SCH (10:00)
[2017-01-16] MEDS: SIMVASTATIN 10 MG TABLET PO SCH (22:06)
[2017-01-17] MEDS: LEVALBUTEROL HCL NEB 0.63 MG/3 ML AMPUL NEB SCH ×2 (04:17→08:13)
[2017-01-17] MEDS: LANSOPRAZOLE 15 MG TAB.RAP.DR PO SCH (05:38)
[2017-01-17 05:45] LABS: HEMATOCRIT 39.9 % (36.0-47.0); HGB HCT DIFFERENCE -0.9; MEAN CORPUSCULAR HEMOGLOBIN 28.9 pg (27.0-33.4); MEAN CORPUSCULAR HGB CONC 32.7 g/dL (32.0-36.0); MEAN CORPUSCULAR VOLUME 89 fl (80-97); RED BLOOD COUNT 4.51 10^6/uL (3.72-5.28)
[2017-01-17 05:56] LABS: ANION GAP 12 (5-19); BLOOD UREA NITROGEN 28 mg/dL (7-20); CALCIUM 8.9 mg/dL (8.4-10.2); CARBON DIOXIDE 25 mmol/L (22-30); CHLORIDE 106 mmol/L (98-107); CREATININE RESULT 1.02 mg/dL (0.52-1.25); GLUCOSE 88 mg/dL (75-110); POTASSIUM 3.9 mmol/L (3.6-5.0); SODIUM 142.6 mmol/L (137-145)
[2017-01-17 06:08] LABS: BASOPHILS % (MANUAL) 0 % (0-2); EOSINOPHILS % (MANUAL) 0 % (0-6); LYMPHOCYTES % (MANUAL) 26 % (13-45); TOTAL CELLS COUNTED 100
[2017-01-17 06:09] LABS: RBC MORPHOLOGY COMMENT NORMO-CYTIC/CHROMIC
[2017-01-17] MEDS: AZITHROMYCIN 250 MG TABLET PO SCH (09:18)
[2017-01-17] MEDS: PREDNISONE 20 MG TABLET PO SCH (09:18)
[2017-01-17] MEDS: FLUTICASONE/SALMETEROL DISKUS 100-50 MCG/DOSE IH SCH (09:18)
[2017-01-17] MEDS: AMLODIPINE BESYLATE 5 MG TABLET PO SCH (09:18)
[2017-01-17 12:08] VITALS: BP 128/54
--- NOTE | 2017-01-17 13:39 | PDOC DISCHARGE SUMMARY ---
General - Admit/Disc Date/PCP Admission Date/Primary Care Provider: 01/12/17 11:58 TERESITA HICKS MD Discharge Date: 01/17/17 - Discharge Diagnosis (1) COPD (chronic obstructive pulmonary disease) Is this a current diagnosis for this admission?: YesSummary: All results will put the patient on Advair on discharge (2) Acute bronchitis Is this a current diagnosis for this admission?: YesSummary: Currently all resolvedPut the patient on the doxycycline and discussed with the patient's family about the all the precaution of the doxycycline to do not lay down flat (3) Hypertension Is this a current diagnosis for this admission?: YesSummary: Stable (4) Peptic ulcer disease Is this a current diagnosis for this admission?: YesSummary: All paul continues to [facility] OTC (5) Pneumonia Is this a current diagnosis for this admission?: YesSummary: Patient's chest x-ray paul currently covered with antibiotic p.o. (6) Respiratory distress Is this a current diagnosis for this admission?: YesSummary: All resolved - Additional Information Discharge Activity: Activity As Tolerated Home Medications: Amlodipine Besylate [Norvasc 5 mg Tablet] 5 mg PO DAILY 01/12/17 Simvastatin [Zocor 20 mg Tablet] 20 mg PO QHS 01/12/17 Albuterol Sulfate [Proair HFA] 1 - 2 puff IH Q4 PRN #1 inhaler 01/17/17 Doxycycline Monohydrate 100 mg PO BID #10 tablet 01/17/17 Fluconazole [Diflucan 100 Mg Tablet] 100 mg PO DAILY #5 tablet 01/17/17 Fluticasone/Salmeterol [Advair 100-50 Diskus 14 Dose/Diskus] 1 inh IH Q12 #1 inhaler 01/17/17 History of Present Illness History of Present Illness: MATHEW BOUDREAUX is a 86 year old female This is a 86-year-old female came to the emergency department with a complaint of shortness of the breath cough congestions and tachycardic for the last several days. Patient was seen in the office last week with a cough and congestions and patient was prescribed Augmentin and some allergy medications but patient is not responds very well. In the emergency department patient's chest x-ray shows some interstitial lung disease and patient's white count was elevated and patient was hypoxic and wheezing and patient was given the Solu- Medrol and IV antibiotic. When I saw the patient's patient is currently doing fair and patient's was given IV fluid and heart rate is also coming down we will admit the patient's for the bronchitis and possible pneumonia and further evaluations. Hospital Course Hospital Course: This is a 86-year-old female was admitting in the hospital for the respiratory distress acute bronchitis and possible pneumonia and patient's was treated with IV antibiotic steroid and also nebulizer treatments. Patient's response very well and steroid was put in the p.o. and put in the inhaled steroid on discharge in patients for the p.o. antibiotics and it and patients denied any other problem on the discharge. Patient's p.o. intake is good patient's move around in the hallway without any problems. Discussed with the family the bedside and follow in office in 1 week Physical Exam Vital Signs: Temp Pulse Resp BP Pulse Ox 98.4 F 71 18 128/54 H 98 01/17/17 12:01 01/17/17 12:01 01/17/17 12:01 01/17/17 12:01 01/17/17 12:01 Intake & Output 01/16/17 01/17/17 01/18/17 06:59 06:59 06:59 Intake Total 250 740 120 Output Total 2 Balance 250 740 118 Weight 48.4 kg 48.4 kg General appearance: PRESENT: no acute distress, well-developed, well-nourished Head exam: PRESENT: atraumatic, normocephalic Eye exam: PRESENT: conjunctiva pink, EOMI, PERRLA. ABSENT: scleral icterus Ear exam: PRESENT: normal external ear exam Mouth exam: PRESENT: moist, tongue midline Neck exam: PRESENT: full ROM. ABSENT: carotid bruit, JVD, lymphadenopathy, thyromegaly Respiratory exam: PRESENT: clear to auscultation nakia Cardiovascular exam: PRESENT: RRR. ABSENT: diastolic murmur, rubs, systolic murmur Pulses: PRESENT: normal dorsalis pedis pul, +2 pedal pulses bilateral Vascular exam: PRESENT: normal capillary refill GI/Abdominal exam: PRESENT: normal bowel sounds, soft. ABSENT: distended, guarding, mass, organolmegaly, rebound, tenderness Rectal exam: PRESENT: deferred Neurological exam: PRESENT: alert, awake, oriented to person, oriented to place , oriented to time, oriented to situation, CN II-XII grossly intact. ABSENT: motor sensory deficit Psychiatric exam: PRESENT: appropriate affect, normal mood. ABSENT: homicidal ideation, suicidal ideation Skin exam: PRESENT: dry, intact, warm. ABSENT: cyanosis, rash Results Laboratory Results: 01/17/17 04:35 01/17/17 04:35 01/17/17 01/17/17 04:35 04:35 WBC 14.0 H RBC 4.51 Hgb 13.0 Hct 39.9 MCV 89 MCH 28.9 MCHC 32.7 RDW 14.0 Plt Count 334 Seg Neutrophils % Not Reportable Lymphocytes % Not Reportable Monocytes % Not Reportable Eosinophils % Not Reportable Basophils % Not Reportable Absolute Neutrophils Not Reportable Absolute Lymphocytes Not Reportable Absolute Monocytes Not Reportable Absolute Eosinophils Not Reportable Absolute Basophils Not Reportable Sodium 142.6 Potassium 3.9 Chloride 106 Carbon Dioxide 25 Anion Gap 12 BUN 28 H Creatinine 1.02 Est GFR ( Amer) > 60 Est GFR (Non-Af Amer) 52 L Glucose 88 Calcium 8.9 01/14/17 00:28 Sputum Gram Stain - Final 01/14/17 00:28 Sputum Sputum Culture - Final C.albicans/C.dubliniensis Normal Martha 01/12/17 01/12/17 01/13/17 18:05 18:05 00:25 Creatine Kinase 138 H 164 H CK-MB (CK-2) 1.05 Troponin I < 0.012 01/13/17 00:25 Creatine Kinase CK-MB (CK-2) 2.15 Troponin I < 0.012 Impressions: Chest/Abdomen CTA 01/12/17 00:00 IMPRESSION: NORMAL CTA OF THE CHEST. NO PULMONARY EMBOLI. Chest X-Ray 01/12/17 07:29 IMPRESSION: No acute cardiopulmonary findings. Mild chronic interstitial lung disease pattern. Plan Time Spent: Less than 30 Minutes - Discharge home with the stable conditions and patient's move around in the hallway in the patient's p.o. intake is good and I hope the patient's continues to be improved
== END 2017-01-17 12:46 | disposition home or self-care (01) | DRG 190 ==
LOC: ER 07:19 → EH 11:58 → UNDOADMIN 12:43 → 4N 15:01
PROVIDERS: ADMIT Family Medicine; ATTEND Family Medicine
DX: J44.0 Chronic obstructive pulmonary disease with (acute) lower respiratory infection (principal); J18.9 Pneumonia, unspecified organism; I69.351 Hemiplegia and hemiparesis following cerebral infarction affecting right dominant side; J44.1 Chronic obstructive pulmonary disease with (acute) exacerbation; J20.9 Acute bronchitis, unspecified; J45.909 Unspecified asthma, uncomplicated; E78.5 Hyperlipidemia, unspecified; I10 Essential (primary) hypertension; K21.9 Gastro-esophageal reflux disease without esophagitis; K27.9 Peptic ulcer, site unspecified, unspecified as acute or chronic, without hemorrhage or perforation
CPT/HCPCS: 36415; 71020; 71275; 80048; 80053; 81001; 82550; 82553; 82803; 82962; 83605; 83735; 83880; 84484; 85025; 85610; 87040; 87070; 87086; 87088; 87186; 87205; 87804; 93005; 93010; 94640; 96365; 96375; 99285; G8978-GP; G8979-GP; G8980-GP; J0692; J0696; J1650; J2920; J2930; J3490; J7030; J7512; J7614; J7620

== ENCOUNTER 2017-07-27 03:26 | Emergency (ER) | payer MEDICARE, MEDICAID ==
[2017-07-27] MEDS ORDERED: PREDNISONE 20 MG TABLET PO ONE (03:38)
[2017-07-27] MEDS ORDERED: IPRATROPIUM/ALBUTEROL 0.5-2.5 MG/3 ML AMPUL NEB ONE (03:38)
[2017-07-27] MEDS: ALBUTEROL SULFATE 0.083% NEB 2.5 MG/3 ML AMPUL NEB SCH ×2 (04:02→05:00)
[2017-07-27] MEDS ORDERED: ALBUTEROL SULFATE 0.083% NEB 2.5 MG/3 ML AMPUL NEB ONE (04:20)
[2017-07-27 04:28] LABS: ABSOLUTE BASOPHILS # (AUTO) 0.1 10^3/uL (0.0-0.2); ABSOLUTE EOSINOPHILS # (AUTO) 0.3 10^3/uL (0.0-0.6); ABSOLUTE LYMPHOCYTES (AUTO) 3.2 10^3/uL (0.5-4.7); ABSOLUTE MONOCYTES (AUTO) 0.8 10^3/uL (0.1-1.4); ABSOLUTE NEUT (AUTO) 8.1 10^3/uL (1.7-8.2); BASOPHILS % (AUTO) 0.8 % (0-2); EOSINOPHILS % (AUTO) 2.5 % (0-6); HEMATOCRIT 39.3 % (36.0-47.0); HEMOGLOBIN 13.3 g/dL (12.0-15.5); HGB HCT DIFFERENCE 0.6; LYMPHOCYTES % (AUTO) 25.6 % (13-45); MEAN CORPUSCULAR HEMOGLOBIN 29.9 pg (27.0-33.4); MEAN CORPUSCULAR HGB CONC 33.9 g/dL (32.0-36.0); MEAN CORPUSCULAR VOLUME 88 fl (80-97); MONOCYTES % (AUTO) 6.4 % (3-13); RED BLOOD COUNT 4.46 10^6/uL (3.72-5.28); SEGMENTED NEUTROPHILS % (AUTO) 64.7 % (42-78); WHITE BLOOD COUNT 12.5 10^3/uL (4.0-10.5)
[2017-07-27 04:41] LABS: ALANINE AMINOTRANSFERASE 54 U/L (9-52); ALBUMIN 4.5 g/dL (3.5-5.0); ALKALINE PHOSPHATASE 111 U/L (38-126); ANION GAP 12 (5-19); ASPARTATE AMINO TRANSFERASE 53 U/L (14-36); BILIRUBIN,DIRECT 0.4 mg/dL (0.0-0.4); BILIRUBIN,TOTAL 0.9 mg/dL (0.2-1.3); BLOOD UREA NITROGEN 15 mg/dL (7-20); CALCIUM 9.6 mg/dL (8.4-10.2); CARBON DIOXIDE 27 mmol/L (22-30); CHLORIDE 104 mmol/L (98-107); CREATINE KINASE 145 U/L (30-135); CREATININE RESULT 0.92 mg/dL (0.52-1.25); GLUCOSE 116 mg/dL (75-110); POTASSIUM 4.1 mmol/L (3.6-5.0); SODIUM 143.4 mmol/L (137-145); TOTAL PROTEIN 7.3 g/dL (6.3-8.2)
[2017-07-27 04:50] LABS: APPEARANCE,URINE CLEAR; BILIRUBIN,URINE NEGATIVE (NEGATIVE); GLUCOSE, URINE NEGATIVE (NEGATIVE); KETONES,URINE NEGATIVE (NEGATIVE); LEUKOCYTE ESTERASE,URINE NEGATIVE (NEGATIVE); NITRITE,URINE NEGATIVE (NEGATIVE); PROTEIN,URINE NEGATIVE (NEGATIVE); URINE SPECIFIC GRAVITY 1.008; UROBILINOGEN,URINE NEGATIVE mg/dL (<2.0)
[2017-07-27 04:52] LABS: CREATINE KINASE MB 1.28 ng/mL (<4.55)
[2017-07-27 04:54] LABS: TROPONIN I < 0.012 ng/mL
--- NOTE | 2017-07-27 05:13 | RADIOLOGY REPORT (SQ) ---
EXAM DESCRIPTION: CHEST PA/LAT COMPLETED DATE/TIME: 07/27/2017 4:28 am REASON FOR STUDY: SOB COMPARISON: 01/12/2017. EXAM PARAMETERS: NUMBER OF VIEWS: two views TECHNIQUE: Digital Frontal and Lateral radiographic views of the chest acquired. RADIATION DOSE: NA LIMITATIONS: none FINDINGS: LUNGS AND PLEURA: Moderate interstitial markings, chronic. MEDIASTINUM AND HILAR STRUCTURES: No masses or contour abnormalities. HEART AND VASCULAR STRUCTURES: Heart normal size. No evidence for failure. BONES: Moderate dextroconvexity of the mid thoracic spine. HARDWARE: None in the chest. OTHER: No other significant finding. IMPRESSION: No acute cardiopulmonary findings. Mild chronic interstitial lung disease. TECHNICAL DOCUMENTATION: JOB ID: [id number] [employer]- All Rights Reserved
--- NOTE | 2017-07-27 05:28 | ER Document Report ---
ED Respiratory Problem - General Chief Complaint: Shortness Of Breath Stated Complaint: DIFFICULTY BREATHING Time Seen by Provider: 07/27/17 04:20 Mode of Arrival: Ambulatory Information source: Patient Notes: Patient is an 87-year-old female with a history of asthma who presents to the ER today for 1 week of increased shortness of breath with wheezing. Patient takes Advair inhaler at home daily and states that it usually helps but has not been helping over the past week. She denies any fevers or chills. She admits to cough that is sometimes productive. She denies any chest pain, nausea, vomiting. TRAVEL OUTSIDE OF THE [place] IN LAST 30 DAYS: No - Related Data Allergies/Adverse Reactions: No Known Allergies Allergy (Verified 01/12/17 07:24) Past Medical History - General Information source: Patient - Social History Smoking Status: Unknown if Ever Smoked Chew tobacco use (# tins/day): No Frequency of alcohol use: None Drug Abuse: None Family History: Reviewed & Not Pertinent Patient has suicidal ideation: No Patient has homicidal ideation: No - Past Medical History Cardiac Medical History: Reports: Hx Hypercholesterolemia, Hx Hypertension Denies: Hx Coronary Artery Disease, Hx Heart Attack Pulmonary Medical History: Denies: Hx Asthma, Hx Bronchitis, Hx COPD, Hx Pneumonia Neurological Medical History: Reports: Hx Cerebrovascular Accident - 2008 right side weaker. Denies: Hx Seizures Renal/ Medical History: Denies: Hx Peritoneal Dialysis GI Medical History: Reports: Hx Gastroesophageal Reflux Disease Musculoskeltal Medical History: Reports Hx Arthritis Psychiatric Medical History: Denies: Hx Depression Past Surgical History: Denies: Hx Hysterectomy - Immunizations Hx Diphtheria, Pertussis, Tetanus Vaccination: No Review of Systems - Review of Systems Constitutional: No symptoms reported EENT: No symptoms reported Cardiovascular: No symptoms reported Respiratory: See HPI Gastrointestinal: No symptoms reported Genitourinary: No symptoms reported Female Genitourinary: No symptoms reported Musculoskeletal: No symptoms reported Skin: No symptoms reported Hematologic/Lymphatic: No symptoms reported Neurological/Psychological: No symptoms reported Physical Exam - Vital signs Vitals: Temp Pulse Resp BP Pulse Ox 98.4 F 100 34 H 137/71 H 96 07/27/17 03:35 07/27/17 03:35 07/27/17 03:35 07/27/17 03:35 07/27/17 03:35 - Notes Notes: PHYSICAL EXAMINATION: GENERAL: Mildly ill-appearing, but in no acute distress. HEAD: Atraumatic, normocephalic. EYES: Pupils equal round and reactive to light, extraocular movements intact, sclera anicteric, conjunctiva are normal. ENT: ear canals without erythema or foreign body, TMs pearly valladares with good bony landmarks, nares patent, oropharynx clear without exudates. Moist mucous membranes. NECK: Normal range of motion, supple without lymphadenopathy LUNGS: Cough, mild expiratory wheezes, no rales or rhonchi. HEART: Regular rate and rhythm without murmurs ABDOMEN: Soft, no tenderness. No guarding, no rebound BACK: no vertebral tenderness, normal ROM GI/: no CVA tenderness EXTREMITIES: Normal range of motion, no pitting edema. No cyanosis. NEUROLOGICAL: Cranial nerves grossly intact. Normal sensory/motor exams. PSYCH: Normal mood, normal affect. SKIN: Warm, Dry, normal turgor, no rashes or lesions noted Course - Re-evaluation Re-evalutation: 07/27/17 05:28 Patient has a white blood cell count of 12.5, chest x-ray shows no signs of acute pathology. Patient feels much better after breathing treatments and prednisone, no longer wheezing at all. I will send patient home with an albuterol inhaler from the emergency department. - Vital Signs Vital signs: Temp Pulse Resp BP Pulse Ox 98.4 F 100 34 H 137/71 H 97 07/27/17 03:35 07/27/17 03:35 07/27/17 03:35 07/27/17 03:35 07/27/17 04:14 - Laboratory Result Diagrams: 07/27/17 04:15 07/27/17 04:15 Laboratory results interpreted by me: 07/27/17 07/27/17 07/27/17 04:15 04:15 04:30 WBC 12.5 H Est GFR (Non-Af Amer) 58 L Glucose 116 H AST 53 H ALT 54 H Creatine Kinase 145 H Urine Blood SMALL H Discharge - Discharge Clinical Impression: Chronic obstructive asthma with acute exacerbation Condition: Stable Disposition: HOME, SELF-CARE Additional Instructions: Return immediately for any new or worsening symptoms. Follow up with primary care provider, call tomorrow to make followup appointment. Prescriptions: Azithromycin [Zithromax 250 mg Tablet] 250 mg PO ASDIR PRN #6 tablet PRN Reason: Guaifenesin/D-Methorphan Hb [Robitussin-Dm Syrup 10 Ml Udcup] 10 ml PO Q6 PRN # 120 ml PRN Reason: Prednisone 10 mg PO ASDIR PRN #1 tab.ds.pk PRN Reason: Referrals: TERESITA HICKS MD [Primary Care Provider] - Follow up as needed
[2017-07-27 05:39] VITALS: BP 121/62
--- NOTE | 2017-07-27 10:16 | EKG REPORT ---
SEVERITY:- BORDERLINE ECG - SINUS RHYTHM BORDERLINE T WAVE ABNORMALITIES : Confirmed by: Yancy Guillen 27-Jul-2017 10:15:48
== END 2017-07-27 05:25 | disposition home or self-care (01) ==
LOC: ER 03:26
DX: J44.1 Chronic obstructive pulmonary disease with (acute) exacerbation (principal); E78.00 Pure hypercholesterolemia, unspecified; I10 Essential (primary) hypertension; I69.951 Hemiplegia and hemiparesis following unspecified cerebrovascular disease affecting right dominant side
CPT/HCPCS: 93005; 94640 ×2; 99285; 36415; 82553; 82550; 85025; 80053; 81001; 84484; 71020; 93010; A9270 ×3; J7512; J7620

== ENCOUNTER 2017-10-23 22:32 | Emergency (ER) | payer MEDICARE, MEDICAID ==
--- NOTE | 2017-10-23 23:10 | RADIOLOGY REPORT (SQ) ---
EXAM DESCRIPTION: CHEST PA/LAT COMPLETED DATE/TIME: 10/23/2017 11:01 pm REASON FOR STUDY: short of breath COMPARISON: 07/27/2017. EXAM PARAMETERS: NUMBER OF VIEWS: two views TECHNIQUE: Digital Frontal and Lateral radiographic views of the chest acquired. RADIATION DOSE: NA LIMITATIONS: none FINDINGS: LUNGS AND PLEURA: Chronic interstitial changes. No opacities, masses or pneumothorax. No pleural effusion. MEDIASTINUM AND HILAR STRUCTURES: No masses or contour abnormalities. HEART AND VASCULAR STRUCTURES: Heart normal size. No evidence for failure. BONES: No acute findings. HARDWARE: None in the chest. OTHER: No other significant finding. IMPRESSION: NO SIGNIFICANT RADIOGRAPHIC FINDING IN THE CHEST. TECHNICAL DOCUMENTATION: JOB ID: [id number]- All Rights Reserved
[2017-10-24] MEDS ORDERED: BENZONATATE 100 MG CAPSULE PO ONE (00:41)
[2017-10-24] MEDS ORDERED: PREDNISONE 20 MG TABLET PO ONE (00:41)
[2017-10-24] MEDS ORDERED: IPRATROPIUM/ALBUTEROL 0.5-2.5 MG/3 ML AMPUL NEB ONE (00:41)
--- NOTE | 2017-10-24 00:42 | ER Document Report ---
ED General - General Chief Complaint: Breathing Difficulty Stated Complaint: DIFFICULTY BREATHING Time Seen by Provider: 10/24/17 00:27 Notes: Patient is an 87-year-old female with a past medical history of asthma with prior hospitalizations but no prior intubations who presents with 3 days of cough, congestion, and shortness of breath. Patient reports that she feels like she has congestion in her chest that she is unable to cough out. She has been using her albuterol inhaler at home with minimal to no improvement of her symptoms. She has not seen her primary care doctor regarding today's concerns. She has not identified anything that seems to worsen her symptoms. Multiple sick contacts with similar symptoms. She has not had any fever or constitutional symptoms. She denies any vomiting or diarrhea. She denies any chest pain or syncope. TRAVEL OUTSIDE OF THE [place] IN LAST 30 DAYS: No - Related Data Allergies/Adverse Reactions: No Known Allergies Allergy (Verified 10/23/17 22:34) Past Medical History - General Information source: Patient - Social History Smoking Status: Never Smoker Frequency of alcohol use: None Drug Abuse: None Lives with: Family Family History: Reviewed & Not Pertinent - Past Medical History Cardiac Medical History: Reports: Hx Hypercholesterolemia, Hx Hypertension Denies: Hx Coronary Artery Disease, Hx Heart Attack Pulmonary Medical History: Denies: Hx Asthma, Hx Bronchitis, Hx COPD, Hx Pneumonia Neurological Medical History: Reports: Hx Cerebrovascular Accident - 2008 right side weaker. Denies: Hx Seizures Renal/ Medical History: Denies: Hx Peritoneal Dialysis GI Medical History: Reports: Hx Gastroesophageal Reflux Disease Musculoskeltal Medical History: Reports Hx Arthritis Psychiatric Medical History: Denies: Hx Depression Past Surgical History: Denies: Hx Hysterectomy - Immunizations Hx Diphtheria, Pertussis, Tetanus Vaccination: No Review of Systems - Review of Systems Notes: Constitutional: Negative for fever. HENT: Negative for sore throat. Eyes: Negative for visual changes. Cardiovascular: Negative for chest pain. Respiratory: Positive for shortness of breath. Gastrointestinal: Negative for abdominal pain, vomiting or diarrhea. Genitourinary: Negative for dysuria. Musculoskeletal: Negative for back pain. Skin: Negative for rash. Neurological: Negative for headaches, weakness or numbness. 10 point ROS negative except as marked above and in HPI. Physical Exam - Vital signs Vitals: Temp Pulse Resp BP Pulse Ox 98.7 F 96 28 H 143/67 H 96 10/23/17 23:15 10/23/17 23:15 10/23/17 23:15 10/23/17 23:15 10/23/17 23:15 Notes: PHYSICAL EXAMINATION: GENERAL: Well-appearing, well-nourished and in no acute distress. HEAD: Atraumatic, normocephalic. EYES: Pupils equal round and reactive to light, extraocular movements intact, sclera anicteric, conjunctiva are normal. ENT: nares patent, oropharynx clear without exudates. Moist mucous membranes. NECK: Normal range of motion, supple without lymphadenopathy LUNGS: Scattered expiratory wheezing in all lung wood. No respiratory distress. HEART: Regular rate and rhythm without murmurs ABDOMEN: Soft, nontender, normoactive bowel sounds. No guarding, no rebound. No masses appreciated. EXTREMITIES: Normal range of motion, no pitting or edema. No cyanosis. NEUROLOGICAL: No focal neurological deficits. Moves all extremities spontaneously and on command. PSYCH: Normal mood, normal affect. SKIN: Warm, Dry, normal turgor, no rashes or lesions noted. Course - Re-evaluation Re-evalutation: 10/24/17 00:41 Patient presents with a mild exacerbation of their baseline asthma. Mild wheezing at time of presentation but vitals do not show significant hypoxemia or tachypnea. No retractions. Patient did clinically improve after receiving nebulizers here in the emergency department. Chest x-ray without evidence of an acute pneumonia. Patient able to ambulate without any respiratory distress. Based on patient's overall reassuring assessment, I believe they are stable for outpatient management with steroids. I do not suspect an acute alternative pathology at this time based on history and exam including acute pulmonary embolus, ACS, pneumothorax, or aortic dissection. At this time will discharge with return precautions and follow-up recommendations. Verbal discharge instructions given a the bedside and opportunity for questions given. Medication warnings reviewed. Patient is in agreement with this plan and has verbalized understanding of return precautions and the need for primary care follow-up in the next 24-72 hours. - Vital Signs Vital signs: Temp Pulse Resp BP Pulse Ox 98.7 F 96 28 H 143/67 H 96 10/23/17 23:15 10/23/17 23:15 10/23/17 23:15 10/23/17 23:15 10/23/17 23:15 - Diagnostic Test Radiology reviewed: Image reviewed, Reports reviewed Radiology results interpreted by me: 10/24/17 01:36 Chest x-ray: No acute infiltrate or pneumothorax Discharge - Discharge Clinical Impression: Asthma exacerbation Qualifiers: Asthma severity: mild Asthma persistence: persistent Qualified Code(s): J45.31 - Mild persistent asthma with (acute) exacerbation Condition: Good Disposition: HOME, SELF-CARE Additional Instructions: You were seen for an asthma exacerbation. Your symptoms improved with treatment here in the emergency department. However, it is very important that you return to the emergency department immediately if you began to have worsening difficulty breathing that does not respond to your normal home nebulizers. You are also being sent home on a five-day course of steroids that you should start taking tomorrow. Please also follow closely with your primary care physician. you should also return to emergency department if you develop fever greater than 101, persistent cough, persistent vomiting, pass out, or any other symptoms that are concerning to you. Prescriptions: Prednisone [Deltasone 20 mg Tablet] 3 tab PO DAILY 5 Days tablet Referrals: TERESITA HICKS MD [Primary Care Provider] - Follow up in 3-5 days
[2017-10-24 02:54] VITALS: BP 128/68
== END 2017-10-24 02:54 | disposition home or self-care (01) ==
LOC: ER 22:32
DX: J45.31 Mild persistent asthma with (acute) exacerbation (principal); E78.00 Pure hypercholesterolemia, unspecified; I10 Essential (primary) hypertension; K21.9 Gastro-esophageal reflux disease without esophagitis
CPT/HCPCS: 99285; 71020; A9270 ×3; J7512; J7620

== ENCOUNTER 2017-11-19 20:37 | Inpatient (IN) | payer MEDICARE, MEDICAID ==
--- NOTE | 2017-11-19 22:19 | EKG REPORT ---
SEVERITY:- ABNORMAL ECG - SINUS TACHYCARDIA CONSIDER ANTERIOR INFARCT, OLD NONSPECIFIC T ABNORMALITIES, ANT-LAT LEADS : Confirmed by: Yancy Guillen 19-Nov-2017 22:18:41
[2017-11-19] MEDS ORDERED: GUAIFENESIN 600 MG TABLET.SA PO ONE (23:00)
[2017-11-19] MEDS ORDERED: NORMAL SALINE 1000 ML 1,000 ML IV PRN (23:41)
[2017-11-19] MEDS ORDERED: METHYLPREDNISOLONE INJ 125 MG/2 ML SDV IV ONE (23:45)
[2017-11-19] MEDS ORDERED: IPRATROPIUM/ALBUTEROL 0.5-2.5 MG/3 ML AMPUL NEB ONE (23:46)
[2017-11-19] MEDS: IPRATROPIUM/ALBUTEROL 0.5-2.5 MG/3 ML AMPUL NEB SCH (23:51)
[2017-11-20] MEDS: IPRATROPIUM/ALBUTEROL 0.5-2.5 MG/3 ML AMPUL NEB SCH ×6 (04:03→23:50)
[2017-11-20 05:02] LABS: ABSOLUTE LYMPHOCYTES (AUTO) 1.2 10^3/uL (0.5-4.7); ABSOLUTE MONOCYTES (AUTO) 0.1 10^3/uL (0.1-1.4); ABSOLUTE NEUT (AUTO) 6.4 10^3/uL (1.7-8.2); BASOPHILS % (AUTO) 0.6 % (0-2); EOSINOPHILS % (AUTO) 0.1 % (0-6); HEMOGLOBIN 12.7 g/dL (12.0-15.5); LYMPHOCYTES % (AUTO) 14.9 % (13-45); MEAN CORPUSCULAR HEMOGLOBIN 29.4 pg (27.0-33.4); MEAN CORPUSCULAR HGB CONC 33.3 g/dL (32.0-36.0); MEAN CORPUSCULAR VOLUME 88 fl (80-97); MONOCYTES % (AUTO) 1.2 % (3-13); PLATELET COUNT 261 10^3/uL (150-450); RED BLOOD COUNT 4.32 10^6/uL (3.72-5.28); SEGMENTED NEUTROPHILS % (AUTO) 83.2 % (42-78); TOTAL CELLS COUNTED % (AUTO) 100 %; WHITE BLOOD COUNT 7.8 10^3/uL (4.0-10.5)
[2017-11-20 05:16] LABS: ANION GAP 14 (5-19); BLOOD UREA NITROGEN 23 mg/dL (7-20); CALCIUM 9.5 mg/dL (8.4-10.2); CARBON DIOXIDE 21 mmol/L (22-30); CHLORIDE 108 mmol/L (98-107); GLUCOSE 163 mg/dL (75-110); POTASSIUM 3.9 mmol/L (3.6-5.0); SODIUM 143.1 mmol/L (137-145)
[2017-11-20] MEDS ORDERED: METHYLPREDNISOLONE INJ 125 MG/2 ML SDV IV SCH (06:00)
[2017-11-20 06:19] LABS: A TYPE INFLUENZA AG NEGATIVE (NEGATIVE); B INFLUENZA AG NEGATIVE (NEGATIVE)
[2017-11-20 07:17] LABS: ABSOLUTE EOSINOPHILS # (AUTO) 0.3 10^3/uL (0.0-0.6); ABSOLUTE LYMPHOCYTES (AUTO) 1.3 10^3/uL (0.5-4.7); ABSOLUTE MONOCYTES (AUTO) 0.6 10^3/uL (0.1-1.4); ABSOLUTE NEUT (AUTO) 5.9 10^3/uL (1.7-8.2); BASOPHILS % (AUTO) 0.6 % (0-2); EOSINOPHILS % (AUTO) 3.3 % (0-6); HEMATOCRIT 42.5 % (36.0-47.0); HEMOGLOBIN 14.1 g/dL (12.0-15.5); LYMPHOCYTES % (AUTO) 16.3 % (13-45); MEAN CORPUSCULAR HEMOGLOBIN 29.3 pg (27.0-33.4); MEAN CORPUSCULAR HGB CONC 33.3 g/dL (32.0-36.0); MEAN CORPUSCULAR VOLUME 88 fl (80-97); MONOCYTES % (AUTO) 7.9 % (3-13); PLATELET COUNT 312 10^3/uL (150-450); RED BLOOD COUNT 4.83 10^6/uL (3.72-5.28); RED CELL DISTRIBUTION WIDTH 14.5 % (11.5-14.0); SEGMENTED NEUTROPHILS % (AUTO) 71.9 % (42-78); TOTAL CELLS COUNTED % (AUTO) 100 %; WHITE BLOOD COUNT 8.2 10^3/uL (4.0-10.5)
--- NOTE | 2017-11-20 09:17 | RADIOLOGY REPORT (SQ) ---
EXAM DESCRIPTION: CTA CHEST COMPLETED DATE/TIME: 11/20/2017 2:18 am REASON FOR STUDY: SOB COMPARISON: None accessible. TECHNIQUE: CT scan of the chest performed using helical scanning technique with dynamic intravenous contrast injection. Images reviewed with lung, soft tissue and bone windows. Reconstructed coronal and sagittal MPR images reviewed. Additional 3 dimensional post-processing performed to develop Maximal Intensity Projection images (WI P). All images stored on PACS. All CT scanners at this facility use dose modulation, iterative reconstruction, and/or weight based d osing when appropriate to reduce radiation dose to as low as reasonably achievable (ALARA). [facility]: Dose Right [facility]: CareDose [facility]: Dose Right [facility]: Teradose 4D [facility]: [employer] CONTRAST TYPE AND DOSE: Not documented. Contrast bolus optimized for the pulmonary arteries. Not diagnostic for the aorta. RENAL FUNCTION: GFR > 60. RADIATION DOSE: . LIMITATIONS: None. FINDINGS: LUNGS AND PLEURA: No masses, infiltrates, pneumothorax. No pleural effusions, calcificati ons. AORTA AND GREAT VESSELS: No aneurysm. Contrast bolus not optimized for the aorta. HEART: No pericardial effusion. No significant coronary artery calcifications. PULMONARY ARTERIES: No emboli visualized in the main pulmonary arteries or the segmental branches. HILAR AND MEDIASTINAL STRUCTURES: No identified masses or abnormal nodes. HARDWARE: None in the chest. UPPER ABDOMEN: No significant findings. Limited exam. THYROID AND OTHER SOFT TISSUES: No masses. No adenopathy. BONES: Scoliosis. 3D MIPS: Confirm above findings. OTHER: No other significant finding. IMPRESSION: NORMAL CTA OF THE CHEST. NO PULMONARY EMBOLI. COMMENT: Quality ID # [id number]: Final reports with documentation of one or more dose reduction techniques (e.g., Automated exposure control, adjustment of the mA and/or kV according to patient size, use of iterative reconstruction technique) TECHNICAL DOCUMENTATION: JOB ID: [id number] [employer]- All Rights Reserved
--- NOTE | 2017-11-20 09:50 | RADIOLOGY REPORT (SQ) ---
EXAM DESCRIPTION: CHEST PA/LAT COMPLETED DATE/TIME: 11/20/2017 3:24 am REASON FOR STUDY: SOB/CP COMPARISON: None. TECHNIQUE: Frontal and lateral radiographic views of the chest acquired. NUMBER OF VIEWS: Two view. LIMITATIONS: None. FINDINGS: LUNGS AND PLEURA: No evidence of consolidating infiltrate , pleural effusion , or pn eumothorax. MEDIASTINUM AND HILAR STRUCTURES: No masses or contour abnormalities. HEART AND VASCULATURE: Heart is mildly enlarged. No evidence for failure. BONY STRUCTURES: No acute findings. HARDWARE: None. OTHER: No other significant finding. IMPRESSION: NO ACUTE CARDIOPULMONARY PROCESS. MILD CARDIOMEGALY. TECHNICAL DOCUMENTATION: JOB ID: [id number]
[2017-11-20] MEDS: GUAIFENESIN 600 MG TABLET.SA PO SCH ×2 (09:51→21:13)
[2017-11-20] MEDS: CEFTRIAXONE SODIUM 1,000 MG in DEXTROSE 5%-WATER 50 ML IV SCH (09:51)
[2017-11-20] MEDS ORDERED: CEFTRIAXONE 1 GM/D5W RTU 1 GM/50 ML RTUPB IV SCH (10:00)
--- NOTE | 2017-11-20 10:10 | PDOC PROGRESS REPORT ---
Subjective Progress Note for:: 11/20/17 Subjective:: Patient is currently doing fairPatient is feeling much better compared to the last nightPatient's denied any chest pain denied any shortness of the breath Reason For Visit: COPD ACUTE EXACERBATION Physical Exam Vital Signs: Temp Pulse Resp BP Pulse Ox 97.8 F 88 26 H 113/55 L 99 11/20/17 07:47 11/20/17 07:47 11/20/17 07:47 11/20/17 07:47 11/20/17 07:47 Intake & Output 11/19/17 11/20/17 11/21/17 06:59 06:59 06:59 Intake Total 760 Balance 760 Weight 53 kg General appearance: PRESENT: no acute distress, well-developed, well-nourished Head exam: PRESENT: atraumatic, normocephalic Eye exam: PRESENT: conjunctiva pink, EOMI, PERRLA. ABSENT: scleral icterus Ear exam: PRESENT: normal external ear exam Mouth exam: PRESENT: moist, tongue midline Neck exam: PRESENT: full ROM. ABSENT: carotid bruit, JVD, lymphadenopathy, thyromegaly Respiratory exam: PRESENT: wheezes Cardiovascular exam: PRESENT: RRR. ABSENT: diastolic murmur, rubs, systolic murmur Pulses: PRESENT: normal dorsalis pedis pul, +2 pedal pulses bilateral Vascular exam: PRESENT: normal capillary refill GI/Abdominal exam: PRESENT: normal bowel sounds, soft. ABSENT: distended, guarding, mass, organolmegaly, rebound, tenderness Rectal exam: PRESENT: deferred Extremities exam: ABSENT: pedal edema Musculoskeletal exam: PRESENT: ambulatory Neurological exam: PRESENT: alert, awake, oriented to person, oriented to place , oriented to time, oriented to situation, CN II-XII grossly intact. ABSENT: motor sensory deficit Psychiatric exam: PRESENT: appropriate affect, normal mood. ABSENT: homicidal ideation, suicidal ideation Skin exam: PRESENT: dry, intact, warm. ABSENT: cyanosis, rash Results Laboratory Results: 11/20/17 04:29 11/20/17 04:29 11/20/17 11/20/17 04:29 04:29 WBC 7.8 RBC 4.32 Hgb 12.7 Hct 38.0 MCV 88 MCH 29.4 MCHC 33.3 RDW 14.0 Plt Count 261 Seg Neutrophils % 83.2 H Lymphocytes % 14.9 Monocytes % 1.2 L Eosinophils % 0.1 Basophils % 0.6 Absolute Neutrophils 6.4 Absolute Lymphocytes 1.2 Absolute Monocytes 0.1 Absolute Eosinophils 0.0 Absolute Basophils 0.0 Sodium 143.1 Potassium 3.9 Chloride 108 H Carbon Dioxide 21 L Anion Gap 14 BUN 23 H Creatinine 0.90 Est GFR ( Amer) > 60 Est GFR (Non-Af Amer) 59 L Glucose 163 H Calcium 9.5 Impressions: Chest X-Ray 11/19/17 00:00 IMPRESSION: NO ACUTE CARDIOPULMONARY PROCESS. MILD CARDIOMEGALY. Chest/Abdomen CTA 11/19/17 00:00 IMPRESSION: NORMAL CTA OF THE CHEST. NO PULMONARY EMBOLI. Assessment & Plan - Diagnosis (1) COPD (chronic obstructive pulmonary disease) Qualifiers: COPD type: COPD with acute lower respiratory infection Qualified Code(s): J44.0 - Chronic obstructive pulmonary disease with acute lower respiratory infection Is this a current diagnosis for this admission?: Yes Plan: Continues to nebulizer treatment and IV steroid (2) Hypertension Qualifiers: Hypertension type: essential hypertension Is this a current diagnosis for this admission?: Yes Plan: Currently stable (3) Peptic ulcer disease Is this a current diagnosis for this admission?: Yes Plan: Continues to PPI (4) Respiratory distress Is this a current diagnosis for this admission?: Yes Plan: Currently all stable - Time Time Spent with patient: 15-24 minutes Medications reviewed and adjusted accordingly: Yes Anticipated discharge: Home Within: Other - Inpatient Certification Medical Necessity: Need Close Monitoring Due to Risk of Patient Decompensation Post Hospital Care: D/C Office Coordinator Receptionist Documentation - Plan Summary Plan Summary: Plan to continues to current medications tapering the steroid of the patient's feel better continues to IV fluid for next 24 hours
[2017-11-20 11:32] LABS: BLOOD UREA NITROGEN 13 mg/dL (7-20); CALCIUM 9.8 mg/dL (8.4-10.2); CHLORIDE 103 mmol/L (98-107); GLUCOSE 112 mg/dL (75-110); POTASSIUM 4.4 mmol/L (3.6-5.0)
[2017-11-20 11:33] LABS: ALANINE AMINOTRANSFERASE 42 U/L (9-52); ALBUMIN 4.8 g/dL (3.5-5.0); ALKALINE PHOSPHATASE 116 U/L (38-126); ANION GAP 13 (5-19); ASPARTATE AMINO TRANSFERASE 42 U/L (14-36); BILIRUBIN,TOTAL 0.5 mg/dL (0.2-1.3); CARBON DIOXIDE 26 mmol/L (22-30); SODIUM 141.8 mmol/L (137-145)
[2017-11-20 11:34] LABS: BILIRUBIN,DIRECT 0.3 mg/dL (0.0-0.4); TOTAL PROTEIN 7.8 g/dL (6.3-8.2)
[2017-11-20 11:36] LABS: ARTERIAL BLOOD H2CO3 1.11 mmol/L (1.05-1.35); ARTERIAL BLOOD HCO3 22.5 mmol/L (20-26); ARTERIAL BLOOD PO2 93.9 mmHg (80-100); ARTERIAL BLOOD TOTAL CO2 23.6 mmol/L (21-25)
[2017-11-20 11:37] LABS: ARTERIAL BLOOD BASE EXCESS -1.8 mmol/L; ARTERIAL BLOOD FIO2 ROOM AIR; ARTERIAL BLOOD O2 SATURATION 97.2 % (94-98)
[2017-11-20] MEDS: AZITHROMYCIN 500 MG in DEXTROSE 5%-WATER 250 ML IV SCH (12:07)
[2017-11-20] MEDS: METHYLPREDNISOLONE INJ 125 MG/2 ML SDV IV SCH ×2 (13:58→21:13)
[2017-11-20] MEDS: SIMVASTATIN 10 MG TABLET PO SCH (21:13)
[2017-11-20] MEDS: ACETAMINOPHEN 325 MG TABLET PO PRN (21:13)
[2017-11-20] MEDS: FLUTICASONE/SALMETEROL DISKUS 100-50 MCG/DOSE IH SCH (21:14)
[2017-11-21] MEDS: IPRATROPIUM/ALBUTEROL 0.5-2.5 MG/3 ML AMPUL NEB SCH ×5 (04:23→19:50)
[2017-11-21 04:40] LABS: ABSOLUTE MONOCYTES (AUTO) 0.5 10^3/uL (0.1-1.4); ABSOLUTE NEUT (AUTO) 13.7 10^3/uL (1.7-8.2); BASOPHILS % (AUTO) 0.3 % (0-2); HEMATOCRIT 35.5 % (36.0-47.0); HEMOGLOBIN 11.6 g/dL (12.0-15.5); LYMPHOCYTES % (AUTO) 6.5 % (13-45); MEAN CORPUSCULAR HGB CONC 32.6 g/dL (32.0-36.0); MEAN CORPUSCULAR VOLUME 89 fl (80-97); PLATELET COUNT 301 10^3/uL (150-450); RED BLOOD COUNT 3.99 10^6/uL (3.72-5.28); RED CELL DISTRIBUTION WIDTH 14.5 % (11.5-14.0); SEGMENTED NEUTROPHILS % (AUTO) 90.2 % (42-78); TOTAL CELLS COUNTED % (AUTO) 100 %; WHITE BLOOD COUNT 15.2 10^3/uL (4.0-10.5)
[2017-11-21 04:55] LABS: ANION GAP 14 (5-19); BLOOD UREA NITROGEN 33 mg/dL (7-20); CARBON DIOXIDE 19 mmol/L (22-30); CHLORIDE 112 mmol/L (98-107); GLUCOSE 177 mg/dL (75-110); POTASSIUM 4.1 mmol/L (3.6-5.0); SODIUM 145.1 mmol/L (137-145)
[2017-11-21] MEDS: METHYLPREDNISOLONE INJ 125 MG/2 ML SDV IV SCH (05:27)
[2017-11-21] MEDS: ACETAMINOPHEN 325 MG TABLET PO PRN ×3 (05:27→23:00)
[2017-11-21] MEDS ORDERED: METHYLPREDNISOLONE INJ 125 MG/2 ML SDV IV SCH (08:29)
[2017-11-21] MEDS: GUAIFENESIN 600 MG TABLET.SA PO SCH ×2 (09:46→21:40)
[2017-11-21] MEDS: AMLODIPINE BESYLATE 5 MG TABLET PO SCH (09:46)
[2017-11-21] MEDS: ASPIRIN 81 MG TABLET, CHEWABLE PO SCH (09:47)
[2017-11-21] MEDS: FLUTICASONE/SALMETEROL DISKUS 100-50 MCG/DOSE IH SCH ×2 (09:47→21:41)
[2017-11-21] MEDS: FERROUS SULFATE 325 MG TABLET PO SCH (09:47)
[2017-11-21] MEDS: CEFTRIAXONE SODIUM 1,000 MG in DEXTROSE 5%-WATER 50 ML IV SCH (09:47)
[2017-11-21] MEDS: AZITHROMYCIN 500 MG in DEXTROSE 5%-WATER 250 ML IV SCH (10:54)
--- NOTE | 2017-11-21 12:48 | PDOC PROGRESS REPORT ---
Subjective Progress Note for:: 11/21/17 Subjective:: Patient is apparently doing fair She is denied any chest pain denied any shortness of the breath Patient's cough is also improving Reason For Visit: COPD ACUTE EXACERBATION Physical Exam Vital Signs: Temp Pulse Resp BP Pulse Ox 98.1 F 98 16 114/58 L 99 11/21/17 11:03 11/21/17 11:46 11/21/17 11:46 11/21/17 11:03 11/21/17 11:03 Intake & Output 11/20/17 11/21/17 11/22/17 06:59 06:59 06:59 Intake Total 760 3020 Balance 760 3020 Weight 53 kg General appearance: PRESENT: no acute distress, well-developed, well-nourished Head exam: PRESENT: atraumatic, normocephalic Eye exam: PRESENT: conjunctiva pink, EOMI, PERRLA. ABSENT: scleral icterus Ear exam: PRESENT: normal external ear exam Mouth exam: PRESENT: moist, tongue midline Neck exam: PRESENT: full ROM. ABSENT: carotid bruit, JVD, lymphadenopathy, thyromegaly Respiratory exam: PRESENT: clear to auscultation nakia, wheezes Cardiovascular exam: PRESENT: RRR. ABSENT: diastolic murmur, rubs, systolic murmur Pulses: PRESENT: normal dorsalis pedis pul, +2 pedal pulses bilateral Vascular exam: PRESENT: normal capillary refill GI/Abdominal exam: PRESENT: normal bowel sounds, soft. ABSENT: distended, guarding, mass, organolmegaly, rebound, tenderness Rectal exam: PRESENT: deferred Extremities exam: ABSENT: pedal edema Musculoskeletal exam: PRESENT: ambulatory Neurological exam: PRESENT: alert, awake, oriented to person, oriented to place , oriented to time, oriented to situation, CN II-XII grossly intact. ABSENT: motor sensory deficit Psychiatric exam: PRESENT: appropriate affect, normal mood. ABSENT: homicidal ideation, suicidal ideation Skin exam: PRESENT: dry, intact, warm. ABSENT: cyanosis, rash Results Laboratory Results: 11/21/17 03:56 11/21/17 03:56 11/21/17 11/21/17 03:56 03:56 WBC 15.2 H RBC 3.99 Hgb 11.6 L Hct 35.5 L MCV 89 MCH 29.0 MCHC 32.6 RDW 14.5 H Plt Count 301 Seg Neutrophils % 90.2 H Lymphocytes % 6.5 L Monocytes % 3.0 Eosinophils % 0.0 Basophils % 0.3 Absolute Neutrophils 13.7 H Absolute Lymphocytes 1.0 Absolute Monocytes 0.5 Absolute Eosinophils 0.0 Absolute Basophils 0.0 Sodium 145.1 H Potassium 4.1 Chloride 112 H Carbon Dioxide 19 L Anion Gap 14 BUN 33 H Creatinine 1.06 Est GFR ( Amer) 59 L Est GFR (Non-Af Amer) 49 L Glucose 177 H Calcium 9.0 Impressions: Chest X-Ray 11/19/17 00:00 IMPRESSION: NO ACUTE CARDIOPULMONARY PROCESS. MILD CARDIOMEGALY. Chest/Abdomen CTA 11/19/17 00:00 IMPRESSION: NORMAL CTA OF THE CHEST. NO PULMONARY EMBOLI. Assessment & Plan - Diagnosis (1) COPD (chronic obstructive pulmonary disease) Qualifiers: COPD type: COPD with acute lower respiratory infection Qualified Code(s): J44.0 - Chronic obstructive pulmonary disease with acute lower respiratory infection Is this a current diagnosis for this admission?: Yes Plan: Taper the steroid and continues to nebulizer treatments (2) Hypertension Qualifiers: Hypertension type: essential hypertension Is this a current diagnosis for this admission?: Yes Plan: Currently stable (3) Peptic ulcer disease Is this a current diagnosis for this admission?: Yes Plan: Continues to PPI (4) Respiratory distress Is this a current diagnosis for this admission?: Yes Plan: To wean her from the oxygens - Time Time Spent with patient: 15-24 minutes Medications reviewed and adjusted accordingly: Yes Anticipated discharge: Home Within: Other - Inpatient Certification Medical Necessity: Need Close Monitoring Due to Risk of Patient Decompensation, Need for IV Antibiotics Post Hospital Care: D/C Painter [employer] Documentation - Plan Summary Plan Summary: Continues to current medicationsTry to wean her from the oxygens
[2017-11-21] MEDS ORDERED: METHYLPREDNISOLONE INJ 40 MG/1 ML SDV IV SCH (14:00)
[2017-11-21] MEDS: METHYLPREDNISOLONE INJ 40 MG/1 ML SDV IV SCH ×2 (14:28→21:40)
[2017-11-21] MEDS: SIMVASTATIN 10 MG TABLET PO SCH (21:40)
[2017-11-22] MEDS: IPRATROPIUM/ALBUTEROL 0.5-2.5 MG/3 ML AMPUL NEB SCH ×6 (00:06→20:12)
[2017-11-22 04:57] LABS: ABSOLUTE LYMPHOCYTES (AUTO) 0.8 10^3/uL (0.5-4.7); ABSOLUTE MONOCYTES (AUTO) 0.7 10^3/uL (0.1-1.4); ABSOLUTE NEUT (AUTO) 13.6 10^3/uL (1.7-8.2); BASOPHILS % (AUTO) 0.2 % (0-2); HEMATOCRIT 33.8 % (36.0-47.0); HEMOGLOBIN 11.5 g/dL (12.0-15.5); LYMPHOCYTES % (AUTO) 5.4 % (13-45); MEAN CORPUSCULAR HEMOGLOBIN 29.8 pg (27.0-33.4); MEAN CORPUSCULAR HGB CONC 34.1 g/dL (32.0-36.0); MEAN CORPUSCULAR VOLUME 87 fl (80-97); MONOCYTES % (AUTO) 4.5 % (3-13); PLATELET COUNT 294 10^3/uL (150-450); RED BLOOD COUNT 3.86 10^6/uL (3.72-5.28); RED CELL DISTRIBUTION WIDTH 14.4 % (11.5-14.0); SEGMENTED NEUTROPHILS % (AUTO) 89.9 % (42-78); TOTAL CELLS COUNTED % (AUTO) 100 %; WHITE BLOOD COUNT 15.1 10^3/uL (4.0-10.5)
[2017-11-22 05:12] LABS: ANION GAP 7 (5-19); BLOOD UREA NITROGEN 21 mg/dL (7-20); CALCIUM 9.1 mg/dL (8.4-10.2); CARBON DIOXIDE 23 mmol/L (22-30); CHLORIDE 114 mmol/L (98-107); GLUCOSE 188 mg/dL (75-110); POTASSIUM 3.8 mmol/L (3.6-5.0); SODIUM 144.4 mmol/L (137-145)
[2017-11-22] MEDS: ACETAMINOPHEN 325 MG TABLET PO PRN (05:32)
[2017-11-22] MEDS: METHYLPREDNISOLONE INJ 40 MG/1 ML SDV IV SCH (05:33)
--- NOTE | 2017-11-22 09:26 | PDOC PROGRESS REPORT ---
Subjective Progress Note for:: 11/22/17 Subjective:: Patient is apparently doing fair She is denied any chest pain denied any shortness of the breath Patient's cough is also improving Reason For Visit: COPD ACUTE EXACERBATION Physical Exam Vital Signs: Temp Pulse Resp BP Pulse Ox 97.6 F 95 22 H 128/60 H 98 11/22/17 04:16 11/22/17 04:16 11/22/17 04:16 11/22/17 04:16 11/22/17 04:16 Intake & Output 11/21/17 11/22/17 11/23/17 06:59 06:59 06:59 Intake Total 3020 3722 Balance 3020 3722 Weight 55.7 kg General appearance: PRESENT: no acute distress, well-developed, well-nourished Head exam: PRESENT: atraumatic, normocephalic Eye exam: PRESENT: conjunctiva pink, EOMI, PERRLA. ABSENT: scleral icterus Ear exam: PRESENT: normal external ear exam Mouth exam: PRESENT: moist, tongue midline Neck exam: PRESENT: full ROM. ABSENT: carotid bruit, JVD, lymphadenopathy, thyromegaly Respiratory exam: PRESENT: clear to auscultation nakia Cardiovascular exam: PRESENT: RRR. ABSENT: diastolic murmur, rubs, systolic murmur Pulses: PRESENT: normal dorsalis pedis pul, +2 pedal pulses bilateral Vascular exam: PRESENT: normal capillary refill GI/Abdominal exam: PRESENT: normal bowel sounds, soft. ABSENT: distended, guarding, mass, organolmegaly, rebound, tenderness Rectal exam: PRESENT: deferred Extremities exam: ABSENT: full ROM, left AKA, right AKA, left BKA, right BKA, calf tenderness, joint swelling, pedal edema, tenderness, other Musculoskeletal exam: PRESENT: ambulatory Neurological exam: PRESENT: alert, awake, oriented to person, oriented to place , oriented to time, oriented to situation, CN II-XII grossly intact. ABSENT: motor sensory deficit Psychiatric exam: PRESENT: appropriate affect, normal mood. ABSENT: homicidal ideation, suicidal ideation Skin exam: PRESENT: dry, intact, warm. ABSENT: cyanosis, rash Results Laboratory Results: 11/22/17 04:07 11/22/17 04:07 11/22/17 11/22/17 04:07 04:07 WBC 15.1 H RBC 3.86 Hgb 11.5 L Hct 33.8 L MCV 87 MCH 29.8 MCHC 34.1 RDW 14.4 H Plt Count 294 Seg Neutrophils % 89.9 H Lymphocytes % 5.4 L Monocytes % 4.5 Eosinophils % 0.0 Basophils % 0.2 Absolute Neutrophils 13.6 H Absolute Lymphocytes 0.8 Absolute Monocytes 0.7 Absolute Eosinophils 0.0 Absolute Basophils 0.0 Sodium 144.4 Potassium 3.8 Chloride 114 H Carbon Dioxide 23 Anion Gap 7 BUN 21 H Creatinine 0.93 Est GFR ( Amer) > 60 Est GFR (Non-Af Amer) 57 L Glucose 188 H Calcium 9.1 11/20/17 14:03 Sputum Gram Stain - Final 11/20/17 14:03 Sputum Sputum Culture - Final Impressions: Chest X-Ray 11/19/17 00:00 IMPRESSION: NO ACUTE CARDIOPULMONARY PROCESS. MILD CARDIOMEGALY. Chest/Abdomen CTA 11/19/17 00:00 IMPRESSION: NORMAL CTA OF THE CHEST. NO PULMONARY EMBOLI. Assessment & Plan - Diagnosis (1) COPD (chronic obstructive pulmonary disease) Qualifiers: COPD type: COPD with acute lower respiratory infection Qualified Code(s): J44.0 - Chronic obstructive pulmonary disease with acute lower respiratory infection Is this a current diagnosis for this admission?: Yes Plan: Taper the steroid and continues to nebulizer treatments (2) Hypertension Qualifiers: Hypertension type: essential hypertension Is this a current diagnosis for this admission?: Yes Plan: Currently stable (3) Peptic ulcer disease Is this a current diagnosis for this admission?: Yes Plan: Continues to PPI (4) Respiratory distress Is this a current diagnosis for this admission?: Yes Plan: To wean her from the oxygens - Time Time Spent with patient: 15-24 minutes Medications reviewed and adjusted accordingly: Yes Anticipated discharge: Home Within: within 24 hours - Inpatient Certification Medical Necessity: Need Close Monitoring Due to Risk of Patient Decompensation Post Hospital Care: D/C Fine Arts Chair Documentation - Plan Summary Plan Summary: DC the IV steroid try to wean her from the oxygens patient's primary discharge next 2448 hrs. with the oral antibiotic and oral steroids
[2017-11-22] MEDS: FERROUS SULFATE 325 MG TABLET PO SCH (10:11)
[2017-11-22] MEDS: PREDNISONE 20 MG TABLET PO SCH (10:11)
[2017-11-22] MEDS: GUAIFENESIN 600 MG TABLET.SA PO SCH ×2 (10:11→21:34)
[2017-11-22] MEDS: ASPIRIN 81 MG TABLET, CHEWABLE PO SCH (10:11)
[2017-11-22] MEDS: AMLODIPINE BESYLATE 5 MG TABLET PO SCH (10:11)
[2017-11-22] MEDS: CEFTRIAXONE SODIUM 1,000 MG in DEXTROSE 5%-WATER 50 ML IV SCH (10:12)
[2017-11-22] MEDS: FLUTICASONE/SALMETEROL DISKUS 100-50 MCG/DOSE IH SCH ×2 (10:13→21:34)
[2017-11-22] MEDS: AZITHROMYCIN 500 MG in DEXTROSE 5%-WATER 250 ML IV SCH (11:02)
[2017-11-22] MEDS: SIMVASTATIN 10 MG TABLET PO SCH (21:34)
[2017-11-23] MEDS: IPRATROPIUM/ALBUTEROL 0.5-2.5 MG/3 ML AMPUL NEB SCH ×5 (00:03→15:59)
[2017-11-23 07:30] LABS: ANION GAP 11 (5-19); BLOOD UREA NITROGEN 16 mg/dL (7-20); CALCIUM 9.3 mg/dL (8.4-10.2); CARBON DIOXIDE 26 mmol/L (22-30); CHLORIDE 108 mmol/L (98-107); GLUCOSE 96 mg/dL (75-110); POTASSIUM 3.7 mmol/L (3.6-5.0); SODIUM 145.4 mmol/L (137-145)
[2017-11-23] MEDS: ASPIRIN 81 MG TABLET, CHEWABLE PO SCH (09:46)
[2017-11-23] MEDS: AMLODIPINE BESYLATE 5 MG TABLET PO SCH (09:46)
[2017-11-23] MEDS: FERROUS SULFATE 325 MG TABLET PO SCH (09:46)
[2017-11-23] MEDS: PREDNISONE 20 MG TABLET PO SCH (09:46)
[2017-11-23] MEDS: GUAIFENESIN 600 MG TABLET.SA PO SCH (09:46)
[2017-11-23] MEDS: CEFTRIAXONE SODIUM 1,000 MG in DEXTROSE 5%-WATER 50 ML IV SCH (09:47)
[2017-11-23] MEDS: FLUTICASONE/SALMETEROL DISKUS 100-50 MCG/DOSE IH SCH (09:47)
[2017-11-23] MEDS: AZITHROMYCIN 500 MG in DEXTROSE 5%-WATER 250 ML IV SCH (10:23)
[2017-11-23 18:23] VITALS: BP 138/64
--- NOTE | 2017-11-23 21:38 | PDOC DISCHARGE SUMMARY ---
General - Admit/Disc Date/PCP Admission Date/Primary Care Provider: 11/19/17 20:40 TERESITA HICKS MD Discharge Date: 11/23/17 - Discharge Diagnosis (1) Acute exacerbation of chronic obstructive pulmonary disease (COPD) Is this a current diagnosis for this admission?: Yes (2) Pneumonia Is this a current diagnosis for this admission?: Yes (3) Hypertension Is this a current diagnosis for this admission?: Yes - Additional Information Discharge Diet: As Tolerated Discharge Activity: Activity As Tolerated Prescriptions: Albuterol Sulfate [Proair HFA] 1 - 2 puff IH Q4 PRN #1 inhaler PRN Reason: Prednisone [Deltasone 20 mg Tablet] 40 mg PO DAILY #4 tablet Home Medications: Amlodipine Besylate [Norvasc 5 mg Tablet] 5 mg PO DAILY 11/20/17 Aspirin [Aspirin 81 mg Chewable Tablet] 81 mg PO DAILY 11/20/17 Ferrous Sulfate 325 mg PO 11/20/17 Fluticasone/Salmeterol [Advair 100-50 Diskus 28 Dose] 1 puff IH BID 11/20/17 Simvastatin [Zocor 20 mg Tablet] 20 mg PO QHS 11/20/17 Albuterol Sulfate [Proair HFA] 1 - 2 puff IH Q4 PRN #1 inhaler 11/23/17 Prednisone [Deltasone 20 mg Tablet] 40 mg PO DAILY #4 tablet 11/23/17 History of Present Illness History of Present Illness: MATHEW BOUDREAUX is a 87 year old female, She was admitted by Dr. Hicks when she presented with pneumonia and COPD Hospital Course Hospital Course: She was admitted for the management of COPD, she was treated with IV antibiotic , Solu-Medrol, bronchodilators. I saw patient by the bedside this afternoon, she is stable enough for discharge Physical Exam Vital Signs: Temp Pulse Resp BP Pulse Ox 98.7 F 94 16 138/64 H 95 11/23/17 18:22 11/23/17 18:22 11/23/17 18:22 11/23/17 18:22 11/23/17 18:22 Intake & Output 11/22/17 11/23/17 11/24/17 06:59 06:59 06:59 Intake Total 3722 1142 1013 Balance 3722 1142 1013 Weight 55.7 kg 56.4 kg General appearance: PRESENT: no acute distress, well-developed, well-nourished Head exam: PRESENT: atraumatic, normocephalic Eye exam: PRESENT: conjunctiva pink, EOMI, PERRLA Ear exam: PRESENT: normal external ear exam Mouth exam: PRESENT: moist, tongue midline Neck exam: PRESENT: full ROM Respiratory exam: PRESENT: clear to auscultation nakia Cardiovascular exam: PRESENT: RRR, +S1, +S2 Pulses: PRESENT: normal dorsalis pedis pul, +2 pedal pulses bilateral Vascular exam: PRESENT: normal capillary refill GI/Abdominal exam: PRESENT: normal bowel sounds, soft Rectal exam: PRESENT: deferred Neurological exam: PRESENT: alert. ABSENT: motor sensory deficit Psychiatric exam: PRESENT: appropriate affect, normal mood. ABSENT: homicidal ideation, suicidal ideation Skin exam: PRESENT: dry, intact, warm. ABSENT: cyanosis, rash Results Laboratory Results: 11/22/17 04:07 11/23/17 06:00 11/23/17 06:00 Sodium 145.4 H Potassium 3.7 Chloride 108 H Carbon Dioxide 26 Anion Gap 11 BUN 16 Creatinine 0.86 Est GFR ( Amer) > 60 Est GFR (Non-Af Amer) > 60 Glucose 96 Calcium 9.3 Impressions: Chest X-Ray 11/19/17 00:00 IMPRESSION: NO ACUTE CARDIOPULMONARY PROCESS. MILD CARDIOMEGALY. Chest/Abdomen CTA 11/19/17 00:00 IMPRESSION: NORMAL CTA OF THE CHEST. NO PULMONARY EMBOLI.
--- NOTE | 2017-12-14 09:02 | PDOC H&P ---
History of Present Illness Admission Date/PCP: 11/19/17 20:40 TERESITA HICKS MD Patient complains of: Shortness of the breath History of Present Illness: MATHEW BOUDREAUX is a 87 year old female, She was admitted by Dr. Hicks when she presented with pneumonia and COPD Past Medical History Cardiac Medical History: Reports: Hyperlipidema, Hypertension Denies: Coronary Artery Disease, Myocardial Infarction Pulmonary Medical History: Denies: Asthma, Bronchitis, Chronic Obstructive Pulmonary Disease (COPD), Pneumonia Neurological Medical History: Denies: Seizures GI Medical History: Reports: Gastroesophageal Reflux Disease Musculoskeltal Medical History: Reports: Arthritis Psychiatric Medical History: Denies: Depression Hematology: Reports: Anemia Past Surgical History Past Surgical History: Denies: Hysterectomy Social History Smoking Status: Never Smoker Frequency of Alcohol Use: None Hx Recreational Drug Use: No Drugs: None Hx Prescription Drug Abuse: No Family History Family History: Reviewed & Not Pertinent Parental Family History Reviewed: Yes Children Family History Reviewed: Yes Sibling(s) Family History Reviewed.: Yes Medication/Allergy Home Medications: Amlodipine Besylate [Norvasc 5 mg Tablet] 5 mg PO DAILY 11/20/17 Aspirin [Aspirin 81 mg Chewable Tablet] 81 mg PO DAILY 11/20/17 Ferrous Sulfate 325 mg PO 11/20/17 Fluticasone/Salmeterol [Advair 100-50 Diskus 28 Dose] 1 puff IH BID 11/20/17 Simvastatin [Zocor 20 mg Tablet] 20 mg PO QHS 11/20/17 Albuterol Sulfate [Proair HFA] 1 - 2 puff IH Q4 PRN #1 inhaler 11/23/17 Prednisone [Deltasone 20 mg Tablet] 40 mg PO DAILY #4 tablet 11/23/17 Allergies/Adverse Reactions: No Known Allergies Allergy (Verified 10/23/17 22:34) Review of Systems All systems: reviewed and no additional remarkable complaints except as stated Physical Exam Vital Signs: Temp Pulse Resp BP Pulse Ox 98.7 F 94 16 138/64 H 95 11/23/17 18:22 11/23/17 18:22 11/23/17 18:22 11/23/17 18:22 11/23/17 18:22 General appearance: PRESENT: mild distress, well-developed, well-nourished Head exam: PRESENT: atraumatic, normocephalic Eye exam: PRESENT: conjunctiva pink, EOMI, PERRLA. ABSENT: scleral icterus Ear exam: PRESENT: normal external ear exam Mouth exam: PRESENT: moist, tongue midline Neck exam: PRESENT: full ROM. ABSENT: carotid bruit, JVD, lymphadenopathy, thyromegaly Respiratory exam: PRESENT: decreased breath sounds, wheezes Cardiovascular exam: PRESENT: RRR. ABSENT: diastolic murmur, rubs, systolic murmur Pulses: PRESENT: normal dorsalis pedis pul, +2 pedal pulses bilateral Vascular exam: PRESENT: normal capillary refill GI/Abdominal exam: PRESENT: normal bowel sounds, soft. ABSENT: distended, guarding, mass, organolmegaly, rebound, tenderness Rectal exam: PRESENT: deferred Extremities exam: PRESENT: pedal edema. ABSENT: joint swelling Musculoskeletal exam: PRESENT: ambulatory Neurological exam: PRESENT: alert, awake, oriented to person, oriented to place , oriented to time, oriented to situation, CN II-XII grossly intact. ABSENT: motor sensory deficit Psychiatric exam: PRESENT: appropriate affect, normal mood. ABSENT: homicidal ideation, suicidal ideation Skin exam: PRESENT: dry, intact, warm. ABSENT: cyanosis, rash Results Laboratory Results: 11/22/17 04:07 11/23/17 06:00 Impressions: Chest X-Ray 11/19/17 00:00 IMPRESSION: NO ACUTE CARDIOPULMONARY PROCESS. MILD CARDIOMEGALY. Chest/Abdomen CTA 11/19/17 00:00 IMPRESSION: NORMAL CTA OF THE CHEST. NO PULMONARY EMBOLI. Assessment & Plan - Diagnosis (1) COPD (chronic obstructive pulmonary disease) Qualifiers: COPD type: COPD with acute lower respiratory infection Qualified Code(s): J44.0 - Chronic obstructive pulmonary disease with acute lower respiratory infection Is this a current diagnosis for this admission?: Yes Plan: With acute exacerbation start the patient on IV steroid and nebulizer treatments (2) Hypertension Qualifiers: Hypertension type: essential hypertension Is this a current diagnosis for this admission?: Yes Plan: Currently stable (3) Peptic ulcer disease Is this a current diagnosis for this admission?: Yes Plan: Continues to PPI (4) Respiratory distress Is this a current diagnosis for this admission?: Yes Plan: To wean her from the oxygens - Time Time Spent: 30 to 50 Minutes Medications reviewed and adjusted accordingly: Yes Anticipated discharge: Home Within: Other - Inpatient Certification Medical Necessity: Need Close Monitoring Due to Risk of Patient Decompensation, Need for IV Antibiotics Post Hospital Care: D/C Elocution Teacher Documentation - Plan Summary Plan Summary: Start the patient on IV steroid nebulizer treatments and IV antibiotic see other MD orders discussed with the patient and the family
== END 2017-11-23 18:35 | disposition home or self-care (01) | DRG 190 ==
LOC: ER 20:37 → EH 20:40 → EDSEX 20:40 → 4N 22:43
PROVIDERS: ADMIT Family Medicine; ATTEND Family Medicine
DX: J44.1 Chronic obstructive pulmonary disease with (acute) exacerbation (principal); J18.9 Pneumonia, unspecified organism; J44.0 Chronic obstructive pulmonary disease with (acute) lower respiratory infection; I10 Essential (primary) hypertension; M19.90 Unspecified osteoarthritis, unspecified site; K27.9 Peptic ulcer, site unspecified, unspecified as acute or chronic, without hemorrhage or perforation; E78.5 Hyperlipidemia, unspecified; K21.9 Gastro-esophageal reflux disease without esophagitis; D64.9 Anemia, unspecified; Z79.82 Long term (current) use of aspirin; Z79.899 Other long term (current) drug therapy; Z79.51 Long term (current) use of inhaled steroids
CPT/HCPCS: 36415; 71046; 71275; 80048; 80053; 80164; 82803; 83605; 85025; 87040; 87070; 87205; 87804; 93005; 93010; 94640; 96365; 96367; 96375; 99285; G8978-GP; G8979-GP; J0456; J0696; J2920; J2930; J3490; J7030; J7060; J7512; J7620

== ENCOUNTER 2018-05-04 05:46 | Inpatient (IN) | payer MEDICARE, MEDICAID ==
[2018-05-04 06:34] LABS: ABSOLUTE EOSINOPHILS # (AUTO) 0.1 10^3/uL (0.0-0.6); ABSOLUTE LYMPHOCYTES (AUTO) 1.9 10^3/uL (0.5-4.7); ABSOLUTE MONOCYTES (AUTO) 0.6 10^3/uL (0.1-1.4); ABSOLUTE NEUT (AUTO) 8.3 10^3/uL (1.7-8.2); BASOPHILS % (AUTO) 0.4 % (0-2); EOSINOPHILS % (AUTO) 0.9 % (0-6); HEMATOCRIT 41.9 % (36.0-47.0); LYMPHOCYTES % (AUTO) 17.2 % (13-45); MEAN CORPUSCULAR HEMOGLOBIN 29.3 pg (27.0-33.4); MEAN CORPUSCULAR HGB CONC 33.4 g/dL (32.0-36.0); MEAN CORPUSCULAR VOLUME 88 fl (80-97); MONOCYTES % (AUTO) 5.3 % (3-13); PLATELET COUNT 306 10^3/uL (150-450); RED BLOOD COUNT 4.77 10^6/uL (3.72-5.28); RED CELL DISTRIBUTION WIDTH 14.1 % (11.5-14.0); SEGMENTED NEUTROPHILS % (AUTO) 76.2 % (42-78); TOTAL CELLS COUNTED % (AUTO) 100 %; WHITE BLOOD COUNT 10.9 10^3/uL (4.0-10.5)
[2018-05-04] MEDS ORDERED: LIDOCAINE 2% VISCOUS SOLN 20 ML UDCUP PO ONE (06:42)
[2018-05-04] MEDS ORDERED: MAG HYDROX/AL HYDROX/SIMETH SUSP 30 ML UDCUP PO ONE (06:42)
[2018-05-04] MEDS ORDERED: METOCLOPRAMIDE HCL ORAL SOLN 10 MG/10 ML UDCUP PO ONE (06:42)
--- NOTE | 2018-05-04 06:42 | ER Document Report ---
ED GI/ - General Mode of Arrival: Ambulatory Information source: Patient TRAVEL OUTSIDE OF THE [place] IN LAST 30 DAYS: No <SONIA CASILLAS - Last Filed: 05/04/18 10:04> <MOHINI CASH - Last Filed: 05/05/18 15:13> - General Chief Complaint: Abdominal Pain Stated Complaint: ABDOMINAL PAIN Time Seen by Provider: 05/04/18 06:42 Notes: Patient is an 87-year-old female who presents to the emergency department today with complaints of 4 hours of abdominal pain. Patient states that her pain started abruptly and woke her up from sleep. Patient has a history of gastric ulcers however she states her symptoms today do not feel like that, she has never had these symptoms before. Patient denies any diarrhea. Patient has had one episode of vomiting without blood. Patient denies dysuria. (SONIA CASILLAS) - Related Data Allergies/Adverse Reactions: No Known Allergies Allergy (Verified 05/04/18 10:00) Past Medical History - General Information source: Patient - Social History Smoking Status: Never Smoker Cigarette use (# per day): No Frequency of alcohol use: None Drug Abuse: None Lives with: Family Family History: Reviewed & Not Pertinent - Past Medical History Cardiac Medical History: Reports: Hx Hypercholesterolemia, Hx Hypertension Neurological Medical History: Reports: Hx Cerebrovascular Accident - 2008 right side weaker GI Medical History: Reports: Hx Gastroesophageal Reflux Disease Musculoskeltal Medical History: Reports Hx Arthritis Surgical Hx: Negative - Immunizations Hx Diphtheria, Pertussis, Tetanus Vaccination: No <SONIA CASILLAS - Last Filed: 05/04/18 10:04> Review of Systems - Review of Systems Constitutional: No symptoms reported EENT: No symptoms reported Cardiovascular: No symptoms reported Respiratory: No symptoms reported Gastrointestinal: See HPI, Abdominal pain, Vomiting. denies: Diarrhea, Blood in vomit Genitourinary: No symptoms reported Female Genitourinary: No symptoms reported Musculoskeletal: No symptoms reported Skin: No symptoms reported Hematologic/Lymphatic: No symptoms reported Neurological/Psychological: No symptoms reported -: Yes All other systems reviewed and negative <SONIA CASILLAS - Last Filed: 05/04/18 10:04> Physical Exam <SONIA CASILLAS - Last Filed: 05/04/18 10:04> <MOHINI CASH - Last Filed: 05/05/18 15:13> - Vital signs Vitals: Temp Pulse Resp BP Pulse Ox 98 F 87 20 163/68 H 97 05/04/18 05:52 05/04/18 05:52 05/04/18 05:52 05/04/18 05:52 05/04/18 05:52 - Notes Notes: Physical Exam: General: Alert, appears uncomfortable. Writhing around the bed somewhat during exam in apparent pain. HEENT: Normocephalic. Atraumatic. PERRL. Extraocular movements intact. Oropharynx clear. Neck: Supple. Non-tender. Respiratory: No respiratory distress. Clear and equal breath sounds bilaterally. Cardiovascular: Regular rate and rhythm. Abdominal: Diffuse moderate abdominal tenderness with palpation. No distension. Normal Bowel Sounds. Back: Non-tender. No deformity or step off. Extremities: Moves all four extremities. Upper extremities: Normal inspection. Normal ROM. Lower extremities: Normal inspection. No edema. Normal ROM. Neurological: Normal cognition. AAOx4. Normal speech. Psychological: Normal affect. Normal Mood. Skin: Warm. Dry. Normal color. (SONIA CASILLAS) Course - Laboratory Result Diagrams: 05/04/18 06:20 05/04/18 06:20 <SONIA CASILLAS - Last Filed: 05/04/18 10:04> - Laboratory Result Diagrams: 05/05/18 06:05 05/05/18 06:05 <MOHINI CASH - Last Filed: 05/05/18 15:13> - Re-evaluation Re-evalutation: 05/04/18 08:35 Radiologist called concern for small bowel obstruction due to internal hernia. Discussed case with surgeon. Will start fluids place NG tube and he will see patient in the emergency department 05/04/18 09:28 Broad-spectrum antibiotics started, surgeon has come to see the patient in the emergency department and will be admitted for small bowel obstruction (MOHINI CASH) - Vital Signs Vital signs: Temp Pulse Resp BP Pulse Ox 100.6 F H 113 H 20 147/66 H 93 05/05/18 07:41 05/05/18 13:37 05/05/18 13:37 05/05/18 07:41 05/05/18 13:37 - Laboratory Laboratory results interpreted by me: 05/04/18 05/04/18 06:20 06:20 WBC 10.9 H RDW 14.1 H Absolute Neutrophils 8.3 H Glucose 138 H Discharge <SONIA CASILLAS - Last Filed: 05/04/18 10:04> - Discharge Admitting Provider: Mandy Unit Admitted: Medical Floor <MOHINI CASH - Last Filed: 05/05/18 15:13> - Discharge Clinical Impression: SBO (small bowel obstruction) Condition: Fair Disposition: ADMITTED INPATIENT Scribe Attestation: 05/05/18 15:13 I personally performed the services described documentation, reviewed and edited the documentation which was dictated to describe my presence, and it accurately records my words and actions. (MOHINI CASH) Scribe Documentation - Scribe Written by Milton:: Milton Velazquez, 05/04/2018 1012 acting as scribe for :: Kj <SONIA CASILLAS - Last Filed: 05/04/18 10:04>
[2018-05-04 06:48] LABS: ALANINE AMINOTRANSFERASE 31 U/L (9-52); ALBUMIN 4.7 g/dL (3.5-5.0); ALKALINE PHOSPHATASE 106 U/L (38-126); ANION GAP 14 (5-19); ASPARTATE AMINO TRANSFERASE 33 U/L (14-36); BILIRUBIN,DIRECT 0.3 mg/dL (0.0-0.4); BILIRUBIN,TOTAL 0.5 mg/dL (0.2-1.3); BLOOD UREA NITROGEN 13 mg/dL (7-20); CALCIUM 10.1 mg/dL (8.4-10.2); CARBON DIOXIDE 23 mmol/L (22-30); CHLORIDE 106 mmol/L (98-107); GLUCOSE 138 mg/dL (75-110); LIPASE 73.5 U/L (23-300); POTASSIUM 4.3 mmol/L (3.6-5.0); SODIUM 143.1 mmol/L (137-145); TOTAL PROTEIN 7.6 g/dL (6.3-8.2)
[2018-05-04 08:01] LABS: APPEARANCE,URINE CLEAR; BILIRUBIN,URINE NEGATIVE (NEGATIVE); COLOR,URINE YELLOW; GLUCOSE, URINE NEGATIVE (NEGATIVE); KETONES,URINE NEGATIVE (NEGATIVE); LEUKOCYTE ESTERASE,URINE NEGATIVE (NEGATIVE); NITRITE,URINE NEGATIVE (NEGATIVE); PROTEIN,URINE NEGATIVE (NEGATIVE); URINE SPECIFIC GRAVITY 1.013; UROBILINOGEN,URINE NEGATIVE mg/dL (<2.0)
--- NOTE | 2018-05-04 08:22 | RADIOLOGY REPORT (SQ) ---
EXAM DESCRIPTION: CTA ABDOMEN/PELVIS W WO COMPLETED DATE/TIME: 05/04/2018 8:04 am REASON FOR STUDY: abd pain COMPARISON: None. TECHNIQUE: CT scan of the abdomen and pelvis performed with intravenous contrast using helical scann ing technique with dynamic intravenous contrast injection. No oral contrast. Images reviewed with lung, soft tissue, and bone windows. Reconstructed coronal and sagittal MPR imag es reviewed. Delayed images for evaluation of the urinary system also acquired. All images stored on PACS. All CT scanners at this facility use dose modulation, iterative reconstruction, and/or weight based d osing when appropriate to reduce radiation dose to as low as reasonably achievable (ALARA). [facility]: Dose Right [facility]: CareDose [facility]: Dose Right [facility]: Teradose 4D [facility]: zhiwo CONTRAST TYPE AND DOSE: 80 mL of IV Isovue 370- low osmolar. RENAL FUNCTION: Creatinine 0.85 RADIATION DOSE: CT Rad equipment meets quality standard of care and radiation dose reduction techniq ues were employed. CTDIvol: 7.1 - 11.3 mGy. DLP: 863 mGy-cm.. LIMITATIONS: None. FINDINGS: The mid small bowel is distended, with air-fluid levels. There is swirling of the mesente erica, worrisome for an internal hernia. Small amount of free fluid is present along left upper quadr ant dilated small bowel loops. Stomach, duodenum, proximal jejunum, distal ileum, and colon are relatively decompressed. No free intraperitoneal air. These findings were discussed with Dr. Underwood. LOWER CHEST: No significant findings. No nodules or infiltrates. LIVER: Normal size. No masses. No dilated ducts. SPLEEN: Normal size. No focal lesions. PANCREAS: No masses. No significant calcifications. No adjacent inflammation or peripancreatic fluid collections. Pancreatic duct not dilated. GALLBLADDER: Contracted around multiple stones. No pericholecystic fluid. ADRENAL GLANDS: No significant masses or asymmetry. RIGHT KIDNEY AND URETER: No solid masses. 1 cm right midpole cortical cyst. No significant calcific ation. No hydronephrosis or hydroureter. LEFT KIDNEY AND URETER: No solid masses. No significant calcification. No hydronephrosis or hydrouret er. AORTA AND VESSELS: No aneurysm. No dissection. Renal arteries, SMA, celiac without stenosis. RETROPERITONEUM: No retroperitoneal adenopathy, hemorrhage or masses. BOWEL AND PERITONEAL CAVITY: As above APPENDIX: Normal. PELVIS: No significant masses. Normal bladder. Normal size female pelvic organs. Small amount of c ul-de-sac pelvic free-fluid. ABDOMINAL WALL: No masses. No hernias. BONES: No significant or acute findings. OTHER: No other significant finding. IMPRESSION: Dilated mid small bowel loops with air-fluid levels and adjacent small amount of free fl uid. Findings are worrisome for closed loop small-bowel obstruction. Results discussed with Dr. Darin bryan in the emergency room. TECHNICAL DOCUMENTATION: JOB ID: [id number] Quality ID # [id number]: Final reports with documentation of one or more dose reduction techniques (e.g., Au tomated exposure control, adjustment of the mA and/or kV according to patient size, use of iterative reconstruction technique) 2010 [employer]- All Rights Reserved Reading location - IP/workstation name: [email or web address]
[2018-05-04] MEDS ORDERED: RINGERS SOLUTION,LACTATED 1,000 ML IV ONE (08:35)
[2018-05-04] MEDS ORDERED: SUCCINYLCHOLINE CHLORIDE INJ 200 MG/10 ML VIAL ONE (08:44)
[2018-05-04] MEDS ORDERED: NEOSTIGMINE METHYLSULFATE 10 MG/10 ML VIAL ONE (08:44)
[2018-05-04] MEDS ORDERED: LIDOCAINE 2% INJ-PF (20 MG/ML) 2 ML AMPUL ONE (08:44)
[2018-05-04] MEDS ORDERED: GLYCOPYRROLATE 1 MG/5 ML SYRINGE ONE (08:44)
--- NOTE | 2018-05-04 09:39 | PDOC H&P ---
History of Present Illness Admission Date/PCP: TERESITA HICKS MD Patient complains of: abdominal pain History of Present Illness: MATHEW BOUDREAUX is a 87 year old female with th eonset onset ot midabdominal pain 4 hours prior to her coming to the ER. A CT scan has been done and it is significant for a closed loop small bowel obstruction. Her blood work is unremarkable Past Medical History Cardiac Medical History: Reports: Hyperlipidema, Hypertension Denies: Coronary Artery Disease, Myocardial Infarction Pulmonary Medical History: Denies: Asthma, Bronchitis, Chronic Obstructive Pulmonary Disease (COPD), Pneumonia Neurological Medical History: Denies: Seizures GI Medical History: Reports: Gastroesophageal Reflux Disease Musculoskeltal Medical History: Reports: Arthritis Psychiatric Medical History: Denies: Depression Hematology: Reports: Anemia Past Surgical History Past Surgical History: Denies: Hysterectomy Social History Smoking Status: Never Smoker Frequency of Alcohol Use: None Hx Recreational Drug Use: No Drugs: None Hx Prescription Drug Abuse: No Family History Family History: Reviewed & Not Pertinent Parental Family History Reviewed: No Children Family History Reviewed: No Sibling(s) Family History Reviewed.: No Medication/Allergy Home Medications: Amlodipine Besylate [Norvasc 5 mg Tablet] 5 mg PO DAILY 11/20/17 Aspirin [Aspirin 81 mg Chewable Tablet] 81 mg PO DAILY 11/20/17 Ferrous Sulfate 325 mg PO 11/20/17 Fluticasone/Salmeterol [Advair 100-50 Diskus 28 Dose] 1 puff IH BID 11/20/17 Simvastatin [Zocor 20 mg Tablet] 20 mg PO QHS 11/20/17 Albuterol Sulfate [Proair HFA] 1 - 2 puff IH Q4 PRN #1 inhaler 11/23/17 Prednisone [Deltasone 20 mg Tablet] 40 mg PO DAILY #4 tablet 11/23/17 Allergies/Adverse Reactions: No Known Allergies Allergy (Verified 10/23/17 22:34) Physical Exam Vital Signs: Temp Pulse Resp BP Pulse Ox 98 F 87 20 163/68 H 97 05/04/18 05:52 05/04/18 05:52 05/04/18 05:52 05/04/18 05:52 05/04/18 05:52 Intake & Output 05/03/18 05/04/18 05/05/18 06:59 06:59 06:59 Weight 55.8 kg General appearance: PRESENT: cooperative, mild distress Head exam: PRESENT: atraumatic Mouth exam: PRESENT: neck supple Respiratory exam: PRESENT: clear to auscultation nakia Cardiovascular exam: PRESENT: RRR GI/Abdominal exam: PRESENT: distended, firm, tenderness - diffusely Extremities exam: PRESENT: full ROM Musculoskeletal exam: PRESENT: full ROM Results Laboratory Results: 05/04/18 06:20 05/04/18 06:20 05/04/18 05/04/18 05/04/18 06:20 06:20 07:35 WBC 10.9 H RBC 4.77 Hgb 14.0 Hct 41.9 MCV 88 MCH 29.3 MCHC 33.4 RDW 14.1 H Plt Count 306 Seg Neutrophils % 76.2 Lymphocytes % 17.2 Monocytes % 5.3 Eosinophils % 0.9 Basophils % 0.4 Absolute Neutrophils 8.3 H Absolute Lymphocytes 1.9 Absolute Monocytes 0.6 Absolute Eosinophils 0.1 Absolute Basophils 0.0 Sodium 143.1 Potassium 4.3 Chloride 106 Carbon Dioxide 23 Anion Gap 14 BUN 13 Creatinine 0.85 Est GFR ( Amer) > 60 Est GFR (Non-Af Amer) > 60 Glucose 138 H Calcium 10.1 Total Bilirubin 0.5 AST 33 ALT 31 Alkaline Phosphatase 106 Total Protein 7.6 Albumin 4.7 Lipase 73.5 Urine Color YELLOW Urine Appearance CLEAR Urine pH 5.0 Ur Specific [place] 1.013 Urine Protein NEGATIVE Urine Glucose (UA) NEGATIVE Urine Ketones NEGATIVE Urine Blood NEGATIVE Urine Nitrite NEGATIVE Ur Leukocyte Esterase NEGATIVE Urine WBC (Auto) 0 Urine RBC (Auto) 1 Impressions: Abdomen/Pelvis CTA 05/04/18 06:47 IMPRESSION: Dilated mid small bowel loops with air-fluid levels and adjacent small amount of free fluid. Findings are worrisome for closed loop small-bowel obstruction. Results discussed with Dr. Underwood in the emergency room. Assessment & Plan - Plan Summary Plan Summary: A/ Sudden onset of midabdominal pain x 4 hrs prior to ER presentation Blood work WNL PE: abdomen, diffusely tender CT scan significant for internal small bowel hernia P/ Emergent laparotomy with possible bowel resection. Procedure, risks, benefits discussed with the patient, she understands, her questions were answered and she decides to proceed
[2018-05-04] MEDS ORDERED: CEFOXITIN INJ 1 GM VIAL IV ONE (09:41)
[2018-05-04] MEDS ORDERED: CEFOXITIN SODIUM 2 GM in DEXTROSE 5%-WATER 100 ML IV PRN (10:04)
[2018-05-04] MEDS ORDERED: BUPIVACAINE HCL 0.5%-EPI 1:200000 INJ/PF 30 ML VIAL ONE (10:07)
[2018-05-04] MEDS ORDERED: BUPIVACAINE INJ/PF LIPOSOME/PF 266 MG/20 ML SDV ONE (10:08)
[2018-05-04] MEDS ORDERED: MIDAZOLAM 2 MG/2 ML INJ ONE (10:09)
[2018-05-04] MEDS ORDERED: FENTANYL CITRATE INJ/PF 250 MCG/5 ML AMPULE ONE (10:09)
[2018-05-04] MEDS ORDERED: PROPOFOL INJ 200 MG/20 ML VIAL IV ONE (10:10)
[2018-05-04] MEDS ORDERED: EPHEDRINE SULFATE INJ 50 MG/1 ML AMPULE ONE (10:10)
[2018-05-04] MEDS ORDERED: MEPERIDINE HCL/PF INJ 25 MG/1 ML DISP.SYRIN IV PRN (11:19)
[2018-05-04] MEDS ORDERED: OXYCODONE-ACETAMINOPHEN 5-325 MG TABLET PO PRN ×2 (11:19)
[2018-05-04] MEDS ORDERED: FENTANYL CITRATE INJ/PF 100 MCG/2 ML AMPUL IV PRN ×3 (11:19)
[2018-05-04] MEDS ORDERED: PROMETHAZINE HCL INJ 25 MG/1 ML VIAL IV PRN ×2 (11:19)
[2018-05-04] MEDS ORDERED: DIPHENHYDRAMINE HCL 50 MG/ML VIAL IV PRN (11:19)
--- NOTE | 2018-05-04 12:11 | Operative Report ---
Nonrecallable Operative Report DATE OF SURGERY: 05/04/18 PREOPERATIVE DIAGNOSIS: small bowel internal hernia. small bowel ischemia POSTOPERATIVE DIAGNOSIS: hyperemia of jejunum and terminal ileum OPERATION: exploratory laparotomy. incidental appendectomy SURGEON: CECILIA DIAZ ANESTHESIA: GA - plus 0.5% marcaine and Expirell 20 mL TISSUE REMOVED OR ALTERED: appendix COMPLICATIONS: none ESTIMATED BLOOD LOSS: < 5 mL INTRAOPERATIVE FINDINGS: hyperemic midjejunum and proximal terminal ileum; normal blood flow of small bowel PROCEDURE: see dictation
[2018-05-04] MEDS: FENTANYL CITRATE INJ/PF 100 MCG/2 ML AMPUL ONE ×4 (12:25→12:54)
--- NOTE | 2018-05-04 12:45 | OPERATIVE REPORT E ---
Operative Report NAME: MATHEW BOUDREAUX : 1930 AGE: 87Y DATE OF SURGERY: 05/04/2018 ROOM: OR PREOPERATIVE DIAGNOSIS: Small bowel internal hernia. POSTOPERATIVE DIAGNOSES: 1. Small bowel internal hernia 2. Hyperemia of small bowel. PROCEDURE: 1. Exploratory laparotomy. 2. Incidental appendectomy. SURGEON: CECILIA DIAZ M.D. WARP DRESSER: None. ANESTHESIA: General plus 20 mL of 0.5% Marcaine with epinephrine as well as 20 mL of Exparel. ESTIMATED BLOOD LOSS: Less than 5 mL. COMPLICATIONS: None. FLUIDS: 600 mL. INDICATIONS AND FINDINGS: This is an 87-year-old female with a history of abdominal pain, sudden onset this morning about 4 a.m. Patient presented to the Emergency Room with the above symptoms. A CAT scan was done revealing the presence of a possible internal hernia versus bowel ischemia. The patient was scheduled to undergo surgery emergently the same day. DESCRIPTION OF PROCEDURE: The procedure was done in the operating room. The patient was placed in a supine position. General anesthesia was induced via endotracheal tube. The abdomen was prepped and draped in the usual fashion. A midline incision was made just above the umbilicus to down below the umbilicus for a length of about 12 cm. The linea alba was divided with Bovie. The peritoneal cavity was entered. A small amount of ascites was identified and aspirated. The small bowel was then eviscerated. The mid portion of the jejunum and most of ileum were found to be hyperemic; however, no abnormalities were noted. The small bowel was then run in a proximal to distal and distal to proximal fashion from the ligament of Treitz to the ileocecal valve. With the exception of the distention and hyperemia of the mid jejunum and proximal ileum, no abnormalities were noted. Blood flow of the bowel was found to be normal by Doppler. Right and left transverse colon were identified visually and by palpation, and no abnormalities were noted. At this point, an appendectomy was performed by eviscerating the cecum. Two hemostats were placed at the base of the appendix and on the mesoappendix. They were both divided with scissors. The appendix was then suture ligated with a 2-0 silk suture and then a freehand tie was placed around the stump. The mucosa of the stump was cauterized and the hemostats were removed. The mesoappendix was divided and ligated with a freehand 2-0 silk tie. The small bowel was then replaced within the peritoneal cavity. The abdominal wall was closed with a running #1 looped PDS suture. The skin was then closed with paul. The patient tolerated the procedure well, extubated, transferred to the recovery room in satisfactory condition. DICTATING PHYSICIAN: CECILIA DIAZ M.D. [id number] Y#: [id number] ID: [id number] JOB#: [id number] ACCT: [id number] cc:CECILIA DIAZ M.D. > MTDD
[2018-05-04] MEDS ORDERED: MORPHINE SULFATE 10 MG/ML INJ ONE (12:56)
[2018-05-04] MEDS ORDERED: ACETAMINOPHEN 1,000 MG/100 ML RTUPB IV ONE (12:59)
[2018-05-04] MEDS: HYDROMORPHONE HCL INJ/PF 2 MG/ML AMPULE ONE ×2 (13:04→13:15)
[2018-05-04] MEDS ORDERED: ONDANSETRON HCL INJ/PF 4 MG/2 ML SDV IV PRN (13:07)
[2018-05-04] MEDS ORDERED: NORMAL SALINE 1000 ML 1,000 ML IV PRN (13:08)
--- NOTE | 2018-05-04 15:53 | EKG REPORT ---
SEVERITY:- BORDERLINE ECG - SINUS TACHYCARDIA LVH BY VOLTAGE : Confirmed by: Yancy Guillen 04-May-2018 15:52:30
[2018-05-04] MEDS: FAMOTIDINE INJ/PF 20 MG/2 ML SDV IV SCH (17:27)
[2018-05-04] MEDS: CEFOXITIN SODIUM 2 GM in DEXTROSE 5%-WATER 100 ML IV SCH (18:26)
[2018-05-04] MEDS: MORPHINE SULFATE 10 MG/ML INJ IV PRN ×2 (18:27→21:24)
[2018-05-05] MEDS: MORPHINE SULFATE 10 MG/ML INJ IV PRN ×2 (00:05→07:57)
[2018-05-05] MEDS: CEFOXITIN SODIUM 2 GM in DEXTROSE 5%-WATER 100 ML IV SCH (03:03)
[2018-05-05] MEDS: FAMOTIDINE INJ/PF 20 MG/2 ML SDV IV SCH (06:14)
[2018-05-05 06:37] LABS: HEMATOCRIT 36.5 % (36.0-47.0); HEMOGLOBIN 12.3 g/dL (12.0-15.5); MEAN CORPUSCULAR HEMOGLOBIN 29.5 pg (27.0-33.4); MEAN CORPUSCULAR HGB CONC 33.6 g/dL (32.0-36.0); MEAN CORPUSCULAR VOLUME 88 fl (80-97); PLATELET COUNT 261 10^3/uL (150-450); RED BLOOD COUNT 4.16 10^6/uL (3.72-5.28); RED CELL DISTRIBUTION WIDTH 14.5 % (11.5-14.0); WHITE BLOOD COUNT 12.9 10^3/uL (4.0-10.5)
[2018-05-05 06:46] LABS: ANION GAP 8 (5-19); BLOOD UREA NITROGEN 14 mg/dL (7-20); CALCIUM 8.6 mg/dL (8.4-10.2); CARBON DIOXIDE 25 mmol/L (22-30); CHLORIDE 105 mmol/L (98-107); GLUCOSE 133 mg/dL (75-110); POTASSIUM 4.5 mmol/L (3.6-5.0)
--- NOTE | 2018-05-05 09:04 | PDOC PROGRESS REPORT ---
Subjective Progress Note for:: 05/05/18 Subjective:: happy, comfortable Reason For Visit: SMALL BOWEL OBSTRUCTION Physical Exam Vital Signs: Temp Pulse Resp BP Pulse Ox 99.3 F 80 24 H 145/57 H 96 05/05/18 03:53 05/05/18 03:53 05/05/18 03:53 05/05/18 03:53 05/05/18 03:53 Intake & Output 05/04/18 05/05/18 05/06/18 06:59 06:59 06:59 Intake Total 1596 Output Total 550 Balance 1046 Weight 55.8 kg General appearance: PRESENT: no acute distress, cooperative Respiratory exam: PRESENT: clear to auscultation nakia Cardiovascular exam: PRESENT: RRR GI/Abdominal exam: PRESENT: hypoactive bowel sounds, soft, other - wouind c/d/i Results Laboratory Results: 05/05/18 06:05 05/05/18 06:05 05/04/18 05/04/18 05/05/18 09:48 13:45 06:05 WBC 12.9 H RBC 4.16 Hgb 12.3 Hct 36.5 MCV 88 MCH 29.5 MCHC 33.6 RDW 14.5 H Plt Count 261 Sodium Potassium Chloride Carbon Dioxide Anion Gap BUN Creatinine Est GFR ( Amer) Est GFR (Non-Af Amer) Glucose Lactic Acid 2.5 H 2.8 H Calcium 05/05/18 06:05 WBC RBC Hgb Hct MCV MCH MCHC RDW Plt Count Sodium 138.0 Potassium 4.5 Chloride 105 Carbon Dioxide 25 Anion Gap 8 BUN 14 Creatinine 0.91 Est GFR ( Amer) > 60 Est GFR (Non-Af Amer) 59 L Glucose 133 H Lactic Acid Calcium 8.6 Impressions: Abdomen/Pelvis CTA 05/04/18 06:47 IMPRESSION: Dilated mid small bowel loops with air-fluid levels and adjacent small amount of free fluid. Findings are worrisome for closed loop small-bowel obstruction. Results discussed with Dr. Underwood in the emergency room. Assessment & Plan - Diagnosis (1) Volvulus of intestine Is this a current diagnosis for this admission?: Yes - Plan Summary Plan Summary: A/ POD #1 after laparotomy for small bowel volvulus VSS, AF Pulse oximeter at RA 95% Good UO Blood work WNL PE unremarkable P/ Decrease IVF 50 mL/hr pepcid to stop IV narcotics Tramadol q6 prn pain advance diet to soft mechanical Dulcolax suppository
[2018-05-05] MEDS ORDERED: ONDANSETRON HCL INJ/PF 4 MG/2 ML SDV IV PRN (09:06)
[2018-05-05] MEDS ORDERED: BISACODYL 10 MG SUPP.RECT PR ONE ×2 (09:30→15:00)
--- NOTE | 2018-05-05 10:08 | RADIOLOGY REPORT (SQ) ---
EXAM DESCRIPTION: CHEST SINGLE VIEW COMPLETED DATE/TIME: 05/05/2018 9:54 am REASON FOR STUDY: sob, wheezing, COMPARISON: 11/19/2017. FINDINGS: Single view chest, portable AP upright. Low lung volumes. Suspect minimal left basilar subsegmental atelectasis. No pneumothorax or infiltr ates otherwise. No significant pleural fluid or failure. Stable cardiomediastinal silhouette. IMPRESSION: Low lung volumes. No acute cardiopulmonary disease suggested. TECHNICAL DOCUMENTATION: JOB ID: [id number] Reading location - IP/workstation name: [email or web address]
[2018-05-05] MEDS ORDERED: ALBUTEROL SULFATE HFA (90 MCG/PUFF) 8 GM MDI (1 MDI/ER DISP) IH PRN (11:04)
[2018-05-05] MEDS ORDERED: CETIRIZINE 10 MG TABLET PO PRN (11:04)
[2018-05-05] MEDS ORDERED: ALBUTEROL SULFATE HFA (90 MCG/PUFF) 200 PUFF/8.5 GM MDI IH PRN (11:15)
[2018-05-05] MEDS: ACETAMINOPHEN 325 MG TABLET PO PRN ×2 (11:16→16:43)
[2018-05-05] MEDS: FAMOTIDINE 20 MG TABLET PO SCH ×2 (11:18→21:29)
[2018-05-05] MEDS ORDERED: AMLODIPINE BESYLATE 5 MG TABLET PO ONE (11:45)
[2018-05-05] MEDS ORDERED: FLUTICASONE/SALMETEROL DISKUS 100-50 MCG/DOSE IH ONE (12:00)
[2018-05-05] MEDS ORDERED: FLUTICASONE NASAL SPRAY 50 MCG/SPRY 120 SPRAY/16 GM NAREB ONE (12:00)
[2018-05-05] MEDS ORDERED: ALBUTEROL SULFATE 0.083% NEB 2.5 MG/3 ML AMPUL NEB PRN (13:17)
[2018-05-05] MEDS: ALBUTEROL SULFATE 0.083% NEB 2.5 MG/3 ML AMPUL NEB SCH ×2 (13:37→19:52)
[2018-05-05 14:01] LABS: APPEARANCE,URINE SLIGHTLY-CLOUDY; BILIRUBIN,URINE NEGATIVE (NEGATIVE); COLOR,URINE YELLOW; GLUCOSE, URINE 50 mg/dL (NEGATIVE); KETONES,URINE NEGATIVE (NEGATIVE); LEUKOCYTE ESTERASE,URINE MODERATE (NEGATIVE); NITRITE,URINE NEGATIVE (NEGATIVE); PROTEIN,URINE NEGATIVE (NEGATIVE); URINE SPECIFIC GRAVITY 1.024; UROBILINOGEN,URINE NEGATIVE mg/dL (<2.0)
[2018-05-05] MEDS: TRAMADOL HCL 50 MG TABLET PO PRN (14:28)
[2018-05-05] MEDS: PIPERACILLIN SODIUM/TAZOBACTAM 2.25 GM in NORMAL SALINE 50 ML IV SCH ×2 (14:29→21:29)
[2018-05-05] MEDS ORDERED: PIPERACILLIN SODIUM/TAZOBACTAM 3.375 GM in NORMAL SALINE 100 ML IV SCH (15:00)
[2018-05-05] MEDS: SIMVASTATIN 10 MG TABLET PO SCH (21:29)
[2018-05-05] MEDS: FLUTICASONE/SALMETEROL DISKUS 100-50 MCG/DOSE IH SCH (21:29)
[2018-05-06] MEDS: ALBUTEROL SULFATE 0.083% NEB 2.5 MG/3 ML AMPUL NEB SCH ×2 (01:14→07:34)
[2018-05-06] MEDS: PIPERACILLIN SODIUM/TAZOBACTAM 2.25 GM in NORMAL SALINE 50 ML IV SCH ×4 (04:00→21:28)
[2018-05-06 05:30] LABS: HEMATOCRIT 38.4 % (36.0-47.0); HEMOGLOBIN 12.7 g/dL (12.0-15.5); MEAN CORPUSCULAR HEMOGLOBIN 28.8 pg (27.0-33.4); MEAN CORPUSCULAR VOLUME 87 fl (80-97); PLATELET COUNT 259 10^3/uL (150-450); RED CELL DISTRIBUTION WIDTH 13.9 % (11.5-14.0); WHITE BLOOD COUNT 15.1 10^3/uL (4.0-10.5)
[2018-05-06] MEDS: TRAMADOL HCL 50 MG TABLET PO PRN ×2 (05:30→18:36)
[2018-05-06 06:04] LABS: ANION GAP 13 (5-19); BLOOD UREA NITROGEN 12 mg/dL (7-20); CALCIUM 9.1 mg/dL (8.4-10.2); CARBON DIOXIDE 23 mmol/L (22-30); CHLORIDE 106 mmol/L (98-107); GLUCOSE 146 mg/dL (75-110); POTASSIUM 4.3 mmol/L (3.6-5.0); SODIUM 141.6 mmol/L (137-145)
[2018-05-06] MEDS: ACETAMINOPHEN 325 MG TABLET PO PRN ×2 (09:06→21:27)
[2018-05-06] MEDS: FAMOTIDINE 20 MG TABLET PO SCH (09:10)
[2018-05-06] MEDS: FLUTICASONE NASAL SPRAY 50 MCG/SPRY 120 SPRAY/16 GM NAREB SCH (09:11)
[2018-05-06] MEDS: FLUTICASONE/SALMETEROL DISKUS 100-50 MCG/DOSE IH SCH ×2 (09:11→22:00)
[2018-05-06] MEDS ORDERED: AMLODIPINE BESYLATE 5 MG TABLET PO SCH (10:00)
[2018-05-06] MEDS ORDERED: IPRATROPIUM/ALBUTEROL 0.5-2.5 MG/3 ML AMPUL NEB PRN (10:26)
[2018-05-06] MEDS ORDERED: ALBUTEROL SULFATE 0.083% NEB 2.5 MG/3 ML AMPUL NEB PRN (10:31)
[2018-05-06] MEDS ORDERED: LORAZEPAM INJ 2 MG/1 ML VIAL IV PRN (10:35)
[2018-05-06] MEDS ORDERED: METHYLPREDNISOLONE INJ 125 MG/2 ML SDV IV ONE ×2 (11:00→15:30)
--- NOTE | 2018-05-06 13:15 | PDOC CONSULTATION ---
Consultation Consult Date: 05/06/18 Consult reason:: Asthma with difficulty breathing History of Present Illness Admission Date/PCP: 05/04/18 09:32 SILVIA HICKS MD History of Present Illness: MATHEW BOUDREAUX is a 87 year old female patient of Dr Silvia Hicks who was admitted on 05/04/2018 to surgicalist service for new onset mid abdominal pain. Her CT scan abdomen and pelvis was significant for closed loop small bowel obstruction. She was taken to surgery and had exploratory laparotomy with incidental appendectomy. Medical consultation was requested this morning due to reported tachypnea and wheezing. There is reported recent diagnosis of Asthma by Dr. Hicks. Her morbidities include hypertension, hyperlipidemia, GERD, and anemia. At the time of my assessment post bronchodilator therapy, she was comfortable on supplemental oxygen at 2.5L/min via nasal cannula. She denied any chest pain. She is wearing abdominal girdle over her surgical wound. Past Medical History Cardiac Medical History: Reports: Hyperlipidema, Hypertension Denies: Coronary Artery Disease, Myocardial Infarction Pulmonary Medical History: Denies: Asthma, Bronchitis, Chronic Obstructive Pulmonary Disease (COPD), Pneumonia Neurological Medical History: Denies: Seizures GI Medical History: Reports: Gastroesophageal Reflux Disease Musculoskeltal Medical History: Reports: Arthritis Psychiatric Medical History: Denies: Depression Hematology: Reports: Anemia Past Surgical History Past Surgical History: Denies: Hysterectomy Social History Lives with: Family Smoking Status: Never Smoker Frequency of Alcohol Use: None Hx Recreational Drug Use: No Drugs: None Hx Prescription Drug Abuse: No - Advance Directive Resuscitation Status: Full Code Family History Family History: Reviewed & Not Pertinent Parental Family History Reviewed: Yes Children Family History Reviewed: Yes Sibling(s) Family History Reviewed.: Yes Medication/Allergy Home Medications: Amlodipine Besylate [Norvasc 5 mg Tablet] 5 mg PO DAILY 11/20/17 Fluticasone/Salmeterol [Advair 100-50 Diskus 28 Dose] 1 puff IH Q12H 11/20/17 Simvastatin [Zocor 20 mg Tablet] 20 mg PO QHS 11/20/17 Albuterol Sulfate [Ventolin Hfa] 2 puff IH Q6HP PRN 05/04/18 Cetirizine HCl [Zyrtec 10 mg Tablet] 1 tab PO DAILYP PRN 05/04/18 Fluticasone Propionate [Flonase Nasal [place] 50 Mcg/[place] 16 gm] 1 spray NAREB DAILY 05/04/18 Allergies/Adverse Reactions: No Known Allergies Allergy (Verified 05/04/18 10:00) Review of Systems Constitutional: ABSENT: chills, fever(s) Nose, Mouth, and Throat: ABSENT: headache(s) Cardiovascular: ABSENT: chest pain, dyspnea on exertion, edema, orthropnea, palpitations Respiratory: ABSENT: cough, hemoptysis Gastrointestinal: PRESENT: abdominal pain - more related to her surgical wound site. ABSENT: bloating, coffee ground emesis, constipation, dysphagia, hematemesis, melena, nausea, vomiting Genitourinary: ABSENT: dysuria, hematuria Musculoskeletal: ABSENT: joint swelling Integumentary: PRESENT: wounds - surgical intervention wound from laparotomy. ABSENT: diaphoresis Neurological: ABSENT: confusion, syncope, vertigo Psychiatric: ABSENT: anxiety, depression Endocrine: ABSENT: cold intolerance, heat intolerance, polydipsia, polyuria Hematologic/Lymphatic: ABSENT: easy bleeding, easy bruising, lymphadenopathy Allergic/Immunologic: ABSENT: seasonal rhinorrhea Physical Exam Vital Signs: Temp Pulse Resp BP Pulse Ox 100.7 F H 96 24 H 138/69 H 95 05/05/18 23:22 05/06/18 10:39 05/06/18 10:39 05/05/18 23:22 05/06/18 10:39 Intake & Output 05/05/18 05/06/18 05/07/18 06:59 06:59 06:59 Intake Total 1596 1185 Output Total 550 450 Balance 1046 735 Weight 55.8 kg 55.8 kg General appearance: PRESENT: mild distress - with supplemental oxygen in use Head exam: PRESENT: atraumatic, normocephalic Mouth exam: PRESENT: moist Respiratory exam: PRESENT: clear to auscultation nakia, decreased breath sounds - at lung bases, unlabored Cardiovascular exam: PRESENT: RRR. ABSENT: diastolic murmur, rubs, systolic murmur Vascular exam: ABSENT: pallor GI/Abdominal exam: PRESENT: hypoactive bowel sounds, other - girdle belt in use Rectal exam: PRESENT: deferred Extremities exam: ABSENT: pedal edema Musculoskeletal exam: PRESENT: normal inspection - with SCD in use bilaterally Neurological exam: PRESENT: alert, awake Psychiatric exam: PRESENT: appropriate affect. ABSENT: agitated, anxious Skin exam: PRESENT: dry, warm, other - surgical wound site dressing ok. Results Laboratory Results: 05/06/18 05:18 05/06/18 05:18 05/05/18 05/06/18 05/06/18 12:50 05:18 05:18 WBC 15.1 H RBC 4.40 Hgb 12.7 Hct 38.4 MCV 87 MCH 28.8 MCHC 33.0 RDW 13.9 Plt Count 259 Sodium 141.6 Potassium 4.3 Chloride 106 Carbon Dioxide 23 Anion Gap 13 BUN 12 Creatinine 0.85 Est GFR ( Amer) > 60 Est GFR (Non-Af Amer) > 60 Glucose 146 H Calcium 9.1 Urine Color YELLOW Urine Appearance SLIGHTLY-CLOUDY Urine pH 6.0 Ur Specific [place] 1.024 Urine Protein NEGATIVE Urine Glucose (UA) 50 H Urine Ketones NEGATIVE Urine Blood SMALL H Urine Nitrite NEGATIVE Ur Leukocyte Esterase MODERATE H Urine WBC (Auto) 18 Urine RBC (Auto) 15 Impressions: Abdomen/Pelvis CTA 05/04/18 06:47 IMPRESSION: Dilated mid small bowel loops with air-fluid levels and adjacent small amount of free fluid. Findings are worrisome for closed loop small-bowel obstruction. Results discussed with Dr. Underwood in the emergency room. Chest X-Ray 05/05/18 00:00 IMPRESSION: Low lung volumes. No acute cardiopulmonary disease suggested. Assessment & Plan - Diagnosis (1) Acute dyspnea Is this a current diagnosis for this admission?: Yes Plan: Acute post operative dyspnea with concern for pulmonary embolism. Requested for CTA chest for further evaluation. Recommend starting her on DVT prophylaxis therapy with Lovenox if CTA findings are negative for PE. (2) Asthma exacerbation attacks Qualifiers: Asthma severity: moderate Is this a current diagnosis for this admission?: Yes Plan: Start on Xopenex nebulizer therapy in view of her associated tachycardia. There is concern for ongoing infection. Hold off IV steroid exposure if bronchodilator is working. (3) Atelectasis of left lung Is this a current diagnosis for this admission?: Yes Plan: Thi may be consequence of her abdominal girdle limiting lung expansion. Recommend use of bedside incentive spirometry. (4) Volvulus of intestine Is this a current diagnosis for this admission?: Yes Plan: Continue management as per surgicalist team recommendations. Follow up on blood culture findings. (5) Hypertension Qualifiers: Hypertension type: essential hypertension Is this a current diagnosis for this admission?: Yes Plan: Maintain on preadmission anti hypertensive medication management with parameters to hold if sbp < 110mmHg. (6) Hyperlipidemia Qualifiers: Hyperlipidemia type: pure hypercholesterolemia Qualified Code(s): E78.00 - Pure hypercholesterolemia, unspecified; E78.0 - Pure hypercholesterolemia Is this a current diagnosis for this admission?: Yes Plan: Maintain on preadmission medication and dietary restriction management. (7) GERD (gastroesophageal reflux disease) Qualifiers: Esophagitis presence: esophagitis presence not specified Qualified Code(s) : K21.9 - Gastro-esophageal reflux disease without esophagitis Is this a current diagnosis for this admission?: Yes Plan: Maintain on PPI prophylaxis management with Prevacid at 30 mg po daily fasting. (8) Possible urinary tract infection Is this a current diagnosis for this admission?: Yes Plan: She is currently on IV Zosyn coverage for possible GI infection but will cover her if there is infection process. Follow up on culture findings. - Time Time Spent: 50 to 70 Minutes Medications reviewed and adjusted accordingly: Yes Anticipated discharge: Home with Homehealth Within: Other - Inpatient Certification Based on my medical assessment, after consideration of the patient's comorbidities, presenting symptoms, or acuity I expect that the services needed warrant INPATIENT care.: Yes I certify that my determination is in accordance with my understanding of Medicare's requirements for reasonable and necessary INPATIENT services [42 CFR 412.3e].: Yes Medical Necessity: Need Close Monitoring Due to Risk of Patient Decompensation, Need For IV Fluids, Need for Nebulizer Therapy and Monitoring of Response, Need for IV Antibiotics, Need for Surgery, Risk of Complication if Not Cared For in Hospital Post Hospital Care: D/C Butcher Apprentice Documentation - Plan Summary Plan Summary: See above recommendations and consulting attending orders.
--- NOTE | 2018-05-06 13:35 | RADIOLOGY REPORT (SQ) ---
EXAM DESCRIPTION: CTA CHEST COMPLETED DATE/TIME: 05/06/2018 1:06 pm REASON FOR STUDY: Eval PE,RECENT SURGERY,SOB COMPARISON: Chest x-ray dated 05/05/2018. Chest CTA dated 11/19/2017. TECHNIQUE: CT scan of the chest performed using helical scanning technique with dynamic intravenous contrast injection. Images reviewed with lung, soft tissue and bone windows. Reconstructed coronal and sagittal MPR images reviewed. Additional 3 dimensional post-processing performed to develop Maximal Intensity Projection images (CA P). All images stored on PACS. All CT scanners at this facility use dose modulation, iterative reconstruction, and/or weight based d osing when appropriate to reduce radiation dose to as low as reasonably achievable (ALARA). [facility]: Dose Right [facility]: CareDose [facility]: Dose Right [facility]: Teradose 4D [facility]: GeoPay CONTRAST TYPE AND DOSE: contrast/concentration: Isovue 370.00 mg/ml; Total Contrast Delivered: 58.0 ml; Total Saline Delivered: 103.0 ml Contrast bolus adequate for pulmonary arteries and aorta. RENAL FUNCTION: BUN 12 creatinine 0.85. RADIATION DOSE: CT Rad equipment meets quality standard of care and radiation dose reduction techniq ues were employed. CTDIvol: 16.5 - 19.4 mGy. DLP: 599 mGy-cm. . LIMITATIONS: None. FINDINGS: LUNGS AND PLEURA: Mild scattered atelectasis. No masses, infiltrates, pneumothorax. No p leural effusions, calcifications. AORTA AND GREAT VESSELS: No aneurysm. No dissection. HEART: No pericardial effusion. No significant coronary artery calcifications. PULMONARY ARTERIES: No emboli visualized in the main pulmonary arteries or the segmental branches. HILAR AND MEDIASTINAL STRUCTURES: No identified masses or abnormal nodes. HARDWARE: None in the chest. UPPER ABDOMEN: No significant findings. A few bubbles of free air from recent surgery. Limited exam . THYROID AND OTHER SOFT TISSUES: No masses. No adenopathy. BONES: No acute or significant finding. 3D MIPS: Confirm above findings. OTHER: No other significant finding. IMPRESSION: NORMAL CTA OF THE CHEST. NO PULMONARY EMBOLI. MILD SCATTERED ATELECTASIS. COMMENT: Quality ID # [id number]: Final reports with documentation of one or more dose reduction techniques (e.g., Automated exposure control, adjustment of the mA and/or kV according to patient size, use of iterative reconstruction technique) TECHNICAL DOCUMENTATION: JOB ID: [id number] [employer]- All Rights Reserved Reading location - IP/workstation name: [email or web address]
[2018-05-06] MEDS ORDERED: LANSOPRAZOLE 30 MG TAB.RAP.DR PO ONE (13:45)
[2018-05-06] MEDS: LEVALBUTEROL HCL NEB 1.25 MG/3 ML AMPUL NEB SCH ×2 (13:48→19:49)
[2018-05-06] MEDS ORDERED: IPRATROPIUM/ALBUTEROL 0.5-2.5 MG/3 ML AMPUL NEB SCH (14:00)
[2018-05-06] MEDS ORDERED: METHYLPREDNISOLONE INJ 40 MG/1 ML SDV IV SCH (14:00)
[2018-05-06] MEDS: MAGNESIUM SULFATE/D5W 1 GM/100 ML RTUPB IV SCH ×2 (15:05→15:15)
--- NOTE | 2018-05-06 17:15 | PDOC PROGRESS REPORT ---
Subjective Progress Note for:: 05/06/18 Subjective:: Has wheezing due to asthma. Neck veins not distended. Tolerating clears for now. No flatus yet. Reason For Visit: SMALL BOWEL OBSTRUCTION Physical Exam Vital Signs: Temp Pulse Resp BP Pulse Ox 100.7 F H 96 24 H 138/69 H 97 05/05/18 23:22 05/06/18 13:48 05/06/18 13:48 05/05/18 23:22 05/06/18 16:53 Intake & Output 05/05/18 05/06/18 05/07/18 06:59 06:59 06:59 Intake Total 1596 1185 Output Total 550 450 Balance 1046 735 Weight 55.8 kg 55.8 kg Exam: Abdomen is soft and non tender Results Laboratory Results: 05/06/18 05:18 05/06/18 05:18 05/06/18 05/06/18 05:18 05:18 WBC 15.1 H RBC 4.40 Hgb 12.7 Hct 38.4 MCV 87 MCH 28.8 MCHC 33.0 RDW 13.9 Plt Count 259 Sodium 141.6 Potassium 4.3 Chloride 106 Carbon Dioxide 23 Anion Gap 13 BUN 12 Creatinine 0.85 Est GFR ( Amer) > 60 Est GFR (Non-Af Amer) > 60 Glucose 146 H Calcium 9.1 Impressions: Abdomen/Pelvis CTA 05/04/18 06:47 IMPRESSION: Dilated mid small bowel loops with air-fluid levels and adjacent small amount of free fluid. Findings are worrisome for closed loop small-bowel obstruction. Results discussed with Dr. Underwood in the emergency room. Chest X-Ray 05/05/18 00:00 IMPRESSION: Low lung volumes. No acute cardiopulmonary disease suggested. Chest/Abdomen CTA 05/06/18 12:00 IMPRESSION: NORMAL CTA OF THE CHEST. NO PULMONARY EMBOLI. MILD SCATTERED ATELECTASIS. Assessment & Plan - Time Time Spent with patient: 15-24 minutes - Plan Summary Plan Summary: Medical consult for Asthma. Try one dose of steroids. D/W Dr Armstrong Repeat CBC in am.
[2018-05-06] MEDS ORDERED: ONDANSETRON HCL INJ/PF 4 MG/2 ML SDV ONE (20:25)
[2018-05-06] MEDS: SIMVASTATIN 10 MG TABLET PO SCH (21:27)
[2018-05-07] MEDS: LEVALBUTEROL HCL NEB 1.25 MG/3 ML AMPUL NEB SCH ×4 (01:42→21:11)
[2018-05-07] MEDS: PIPERACILLIN SODIUM/TAZOBACTAM 2.25 GM in NORMAL SALINE 50 ML IV SCH ×4 (04:24→22:12)
[2018-05-07 05:51] LABS: HEMATOCRIT 34.6 % (36.0-47.0); HEMOGLOBIN 11.6 g/dL (12.0-15.5); MEAN CORPUSCULAR HEMOGLOBIN 29.2 pg (27.0-33.4); MEAN CORPUSCULAR HGB CONC 33.5 g/dL (32.0-36.0); MEAN CORPUSCULAR VOLUME 87 fl (80-97); PLATELET COUNT 270 10^3/uL (150-450); RED BLOOD COUNT 3.96 10^6/uL (3.72-5.28); WHITE BLOOD COUNT 12.8 10^3/uL (4.0-10.5)
[2018-05-07] MEDS ORDERED: METHYLPREDNISOLONE INJ 40 MG/1 ML SDV IV SCH ×2 (06:00→22:00)
[2018-05-07 06:02] LABS: ANION GAP 11 (5-19); BLOOD UREA NITROGEN 16 mg/dL (7-20); CALCIUM 9.5 mg/dL (8.4-10.2); CARBON DIOXIDE 25 mmol/L (22-30); CHLORIDE 105 mmol/L (98-107); GLUCOSE 186 mg/dL (75-110); POTASSIUM 4.3 mmol/L (3.6-5.0); SODIUM 141.1 mmol/L (137-145)
[2018-05-07] MEDS: LANSOPRAZOLE 30 MG TAB.RAP.DR PO SCH (06:11)
[2018-05-07] MEDS: TRAMADOL HCL 50 MG TABLET PO PRN ×2 (06:14→16:01)
--- NOTE | 2018-05-07 08:31 | PDOC PROGRESS REPORT ---
Subjective Progress Note for:: 05/07/18 Subjective:: Patient was admitted for the abdominal pain and sigmoid volvulus and underwent for the expiratory laparotomy by the surgical service and the patient started developing the bleeding problems and patients at this point medical team was consulted for that Seen by Dr. Armstrong and we can start the patient on Xopenex and a CT angiogram was done was negative for any PE She is currently doing well denied any chest pain denied any shortness of the breath According to the nursing staff patients of existing condition is fine but patients move patient's respiratory rate is going up Since denied any fever or chills Reason For Visit: SMALL BOWEL OBSTRUCTION Physical Exam Vital Signs: Temp Pulse Resp BP Pulse Ox 98.9 F 94 20 134/68 H 98 05/06/18 23:32 05/07/18 02:00 05/07/18 02:00 05/06/18 23:32 05/06/18 23:32 Intake & Output 05/06/18 05/07/18 05/08/18 06:59 06:59 06:59 Intake Total 1185 1547 Output Total 450 Balance 735 1547 Weight 55.8 kg 56.1 kg General appearance: PRESENT: no acute distress, well-developed, well-nourished Head exam: PRESENT: atraumatic, normocephalic Eye exam: PRESENT: conjunctiva pink, EOMI, PERRLA. ABSENT: scleral icterus Ear exam: PRESENT: normal external ear exam Mouth exam: PRESENT: moist, tongue midline Neck exam: PRESENT: full ROM. ABSENT: carotid bruit, JVD, lymphadenopathy, thyromegaly Respiratory exam: PRESENT: clear to auscultation nakia Cardiovascular exam: PRESENT: RRR. ABSENT: diastolic murmur, rubs, systolic murmur Pulses: PRESENT: normal dorsalis pedis pul, +2 pedal pulses bilateral Vascular exam: PRESENT: normal capillary refill GI/Abdominal exam: PRESENT: normal bowel sounds, soft. ABSENT: distended, guarding, mass, organolmegaly, rebound, tenderness Rectal exam: PRESENT: deferred Neurological exam: PRESENT: alert, awake, oriented to person, oriented to place. ABSENT: motor sensory deficit Additional comments: Surgical scar is intact and the dressing is clean and dry Psychiatric exam: PRESENT: appropriate affect, normal mood. ABSENT: homicidal ideation, suicidal ideation Skin exam: PRESENT: dry, intact, warm. ABSENT: cyanosis, rash Results Laboratory Results: 05/07/18 05:15 05/07/18 05:15 05/07/18 05/07/18 05:15 05:15 WBC 12.8 H RBC 3.96 Hgb 11.6 L Hct 34.6 L MCV 87 MCH 29.2 MCHC 33.5 RDW 14.0 Plt Count 270 Sodium 141.1 Potassium 4.3 Chloride 105 Carbon Dioxide 25 Anion Gap 11 BUN 16 Creatinine 0.83 Est GFR ( Amer) > 60 Est GFR (Non-Af Amer) > 60 Glucose 186 H Calcium 9.5 Impressions: Abdomen/Pelvis CTA 05/04/18 06:47 IMPRESSION: Dilated mid small bowel loops with air-fluid levels and adjacent small amount of free fluid. Findings are worrisome for closed loop small-bowel obstruction. Results discussed with Dr. Underwood in the emergency room. Chest X-Ray 05/05/18 00:00 IMPRESSION: Low lung volumes. No acute cardiopulmonary disease suggested. Chest/Abdomen CTA 05/06/18 12:00 IMPRESSION: NORMAL CTA OF THE CHEST. NO PULMONARY EMBOLI. MILD SCATTERED ATELECTASIS. Assessment & Plan - Diagnosis (1) Acute dyspnea Is this a current diagnosis for this admission?: Yes (2) Asthma exacerbation attacks Qualifiers: Asthma severity: moderate Is this a current diagnosis for this admission?: Yes (3) Atelectasis of left lung Is this a current diagnosis for this admission?: Yes (4) GERD (gastroesophageal reflux disease) Qualifiers: Esophagitis presence: esophagitis presence not specified Qualified Code(s) : K21.9 - Gastro-esophageal reflux disease without esophagitis Is this a current diagnosis for this admission?: Yes (5) Hyperlipidemia Qualifiers: Hyperlipidemia type: pure hypercholesterolemia Qualified Code(s): E78.00 - Pure hypercholesterolemia, unspecified; E78.0 - Pure hypercholesterolemia Is this a current diagnosis for this admission?: Yes (6) Volvulus of intestine Is this a current diagnosis for this admission?: Yes (7) COPD (chronic obstructive pulmonary disease) Qualifiers: COPD type: COPD with acute lower respiratory infection Qualified Code(s): J44.0 - Chronic obstructive pulmonary disease with acute lower respiratory infection Is this a current diagnosis for this admission?: Yes - Time Time Spent with patient: 15-24 minutes Medications reviewed and adjusted accordingly: Yes Anticipated discharge: Other Within: Other - Inpatient Certification Medical Necessity: Need Close Monitoring Due to Risk of Patient Decompensation Post Hospital Care: D/C Certified Dialysis Technician Documentation - Plan Summary Plan Summary: Discussed with the nursing staff to walk with physical therapy and check the watery oxygen saturations continues to Xopenex continues to Advair and try to avoid the steroid
[2018-05-07] MEDS: AMLODIPINE BESYLATE 5 MG TABLET PO SCH (09:37)
[2018-05-07] MEDS: FLUTICASONE NASAL SPRAY 50 MCG/SPRY 120 SPRAY/16 GM NAREB SCH (09:37)
[2018-05-07] MEDS: FLUTICASONE/SALMETEROL DISKUS 100-50 MCG/DOSE IH SCH ×2 (09:37→22:12)
--- NOTE | 2018-05-07 12:18 | PDOC PROGRESS REPORT ---
Subjective Progress Note for:: 05/07/18 Subjective:: Some shortness of breath, chronic; this morning patient had an exacerbation asthma, treated with inhalers, and fluid restriction. Reason For Visit: SMALL BOWEL OBSTRUCTION Physical Exam Vital Signs: Temp Pulse Resp BP Pulse Ox 98.9 F 98 20 134/68 H 95 05/06/18 23:32 05/07/18 08:02 05/07/18 08:02 05/06/18 23:32 05/07/18 08:02 Intake & Output 05/06/18 05/07/18 05/08/18 06:59 06:59 06:59 Intake Total 1185 1547 Output Total 450 Balance 735 1547 Weight 55.8 kg 56.1 kg General appearance: PRESENT: other - Patient sitting in chair, obviously dyspneic with accessory muscles of respiration utilized. Respiratory exam: PRESENT: wheezes - Inspiratory and expiratory wheezes GI/Abdominal exam: PRESENT: other - Dressing removed; paul intact; no hematoma Results Laboratory Results: 05/07/18 05:15 05/07/18 05:15 05/07/18 05/07/18 05:15 05:15 WBC 12.8 H RBC 3.96 Hgb 11.6 L Hct 34.6 L MCV 87 MCH 29.2 MCHC 33.5 RDW 14.0 Plt Count 270 Sodium 141.1 Potassium 4.3 Chloride 105 Carbon Dioxide 25 Anion Gap 11 BUN 16 Creatinine 0.83 Est GFR ( Amer) > 60 Est GFR (Non-Af Amer) > 60 Glucose 186 H Calcium 9.5 Impressions: Abdomen/Pelvis CTA 05/04/18 06:47 IMPRESSION: Dilated mid small bowel loops with air-fluid levels and adjacent small amount of free fluid. Findings are worrisome for closed loop small-bowel obstruction. Results discussed with Dr. Underwood in the emergency room. Chest X-Ray 05/05/18 00:00 IMPRESSION: Low lung volumes. No acute cardiopulmonary disease suggested. Chest/Abdomen CTA 05/06/18 12:00 IMPRESSION: NORMAL CTA OF THE CHEST. NO PULMONARY EMBOLI. MILD SCATTERED ATELECTASIS. Assessment & Plan - Diagnosis (1) Volvulus of intestine Is this a current diagnosis for this admission?: Yes Plan: She is 3 days status post exploratory laparotomy doing well from a postoperative standpoint; exacerbation of asthma stabilized with medication, inhaler and fluid restriction. Recommendations: 1. Advance diet as tolerated 2. Engage discharge planning; hopefully can discharge home in the next 24 hours.
--- NOTE | 2018-05-07 12:59 | PDOC CONSULTATION ---
Consultation Consult Date: 05/07/18 Attending physician:: CECILIA DIAZ Consult reason:: Wheezing hypoxic History of Present Illness Admission Date/PCP: 05/04/18 09:32 TERESITA HICKS MD History of Present Illness: MATHEW BOUDREAUX is a 87 year old female,admitted for acute abdominal pain subsequently went to surgery for small bowel obstruction stable at that time but has persistent wheezing and hypoxemia. She denies wearing oxygen at home but apparently she does have some dyspnea on exertion she denies cough or hemoptysis PPD status is unknown no history of chronic lung disease as a child or adolescent. She admits to exposure to large amounts of passive smoke as a child as well as an adult. 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 Past Medical History Cardiac Medical History: Reports: Hyperlipidema, Hypertension Denies: Coronary Artery Disease, Myocardial Infarction Pulmonary Medical History: Denies: Asthma, Bronchitis, Chronic Obstructive Pulmonary Disease (COPD), Pneumonia Neurological Medical History: Denies: Seizures GI Medical History: Reports: Gastroesophageal Reflux Disease Musculoskeltal Medical History: Reports: Arthritis Psychiatric Medical History: Denies: Depression Hematology: Reports: Anemia Past Surgical History Past Surgical History: Denies: Hysterectomy Social History Lives with: Family Smoking Status: Never Smoker Passive smoke exposure as: Both Frequency of Alcohol Use: None Hx Recreational Drug Use: No Drugs: None Hx Prescription Drug Abuse: No Do you have pets?: No Have you had any respiratory illnesses as a child?: No Have you been exposed to any sick contacts recently?: No Have you had any recent respiratory illnesses?: No Have you travelled outside of [place] in the past 12 months?: No - Advance Directive Resuscitation Status: Full Code Family History Family History: CAD, Hypertension Parental Family History Reviewed: Yes Children Family History Reviewed: Yes Sibling(s) Family History Reviewed.: Yes Medication/Allergy Home Medications: Amlodipine Besylate [Norvasc 5 mg Tablet] 5 mg PO DAILY 11/20/17 Fluticasone/Salmeterol [Advair 100-50 Diskus 28 Dose] 1 puff IH Q12H 11/20/17 Simvastatin [Zocor 20 mg Tablet] 20 mg PO QHS 11/20/17 Albuterol Sulfate [Ventolin Hfa] 2 puff IH Q6HP PRN 05/04/18 Cetirizine HCl [Zyrtec 10 mg Tablet] 1 tab PO DAILYP PRN 05/04/18 Fluticasone Propionate [Flonase Nasal [place] 50 Mcg/[place] 16 gm] 1 spray NAREB DAILY 05/04/18 Allergies/Adverse Reactions: No Known Allergies Allergy (Verified 05/04/18 10:00) Review of Systems Constitutional: ABSENT: headache(s), night sweats Eyes: ABSENT: visual disturbances Ears: ABSENT: hearing changes Nose, Mouth, and Throat: ABSENT: sore throat Cardiovascular: PRESENT: dyspnea on exertion. ABSENT: orthropnea, palpitations Respiratory: PRESENT: dyspnea. ABSENT: hemoptysis Gastrointestinal: PRESENT: abdominal pain, dysphagia, heartburn. ABSENT: coffee ground emesis, hematemesis, hematochezia, melena, nausea Genitourinary: PRESENT: nocturia. ABSENT: dysuria, hematuria Musculoskeletal: ABSENT: deformity, joint swelling Integumentary: ABSENT: pruritus, rash Neurological: ABSENT: abnormal gait, abnormal movements, abnormal speech, frequent falls, lack of coordination, memory loss, numbness Psychiatric: ABSENT: hallucinations, homidical ideation, suicidal ideation Endocrine: ABSENT: cold intolerance, heat intolerance Hematologic/Lymphatic: ABSENT: easy bruising Allergic/Immunologic: PRESENT: seasonal rhinorrhea Physical Exam Vital Signs: Temp Pulse Resp BP Pulse Ox 98.9 F 98 20 134/68 H 95 05/06/18 23:32 05/07/18 08:02 05/07/18 08:02 05/06/18 23:32 05/07/18 08:02 Intake & Output 05/06/18 05/07/18 05/08/18 06:59 06:59 06:59 Intake Total 1185 1547 Output Total 450 Balance 735 1547 Weight 55.8 kg 56.1 kg General appearance: PRESENT: no acute distress, cooperative, disheveled, obese, well-developed, well-nourished Head exam: PRESENT: atraumatic, normocephalic Eye exam: PRESENT: conjunctiva pale, EOMI. ABSENT: nystagmus, periorbital swelling, scleral icterus Mouth exam: PRESENT: dry mucosa, neck supple, tongue midline Teeth exam: PRESENT: edentulous Neck exam: ABSENT: carotid bruit, JVD, lymphadenopathy, thyromegaly, tracheal deviation, tracheostomy Respiratory exam: PRESENT: decreased breath sounds, prolonged expiratory phas, rhonchi, unlabored, wheezes. ABSENT: rales, retraction, stridor Cardiovascular exam: PRESENT: RRR, +S1, +S2 Pulses: PRESENT: normal radial pulses GI/Abdominal exam: PRESENT: tenderness, other - Postop abdomen Extremities exam: PRESENT: full ROM. ABSENT: clubbing, joint swelling, pedal edema Musculoskeletal exam: ABSENT: ambulatory, deformity, dislocation Neurological exam: PRESENT: alert, awake Psychiatric exam: PRESENT: normal mood Skin exam: PRESENT: dry, warm Results Laboratory Results: 05/07/18 05:15 05/07/18 05:15 05/07/18 05/07/18 05:15 05:15 WBC 12.8 H RBC 3.96 Hgb 11.6 L Hct 34.6 L MCV 87 MCH 29.2 MCHC 33.5 RDW 14.0 Plt Count 270 Sodium 141.1 Potassium 4.3 Chloride 105 Carbon Dioxide 25 Anion Gap 11 BUN 16 Creatinine 0.83 Est GFR ( Amer) > 60 Est GFR (Non-Af Amer) > 60 Glucose 186 H Calcium 9.5 Impressions: Abdomen/Pelvis CTA 05/04/18 06:47 IMPRESSION: Dilated mid small bowel loops with air-fluid levels and adjacent small amount of free fluid. Findings are worrisome for closed loop small-bowel obstruction. Results discussed with Dr. Underwood in the emergency room. Chest X-Ray 05/05/18 00:00 IMPRESSION: Low lung volumes. No acute cardiopulmonary disease suggested. Chest/Abdomen CTA 05/06/18 12:00 IMPRESSION: NORMAL CTA OF THE CHEST. NO PULMONARY EMBOLI. MILD SCATTERED ATELECTASIS. Assessment & Plan - Diagnosis (1) Asthma exacerbation attacks Qualifiers: Asthma severity: moderate Is this a current diagnosis for this admission?: Yes Plan: initiate spireva Generic Name Dose Route Start Last Admin Trade Name Freq PRN Reason Stop Dose Admin Levalbuterol HCl 1.25 mg 05/06/18 14:00 05/07/18 08:02 Xopenex Neb 1.25 Mg/3 Ml Ampul NEB 06/05/18 13:59 1.25 mg RTQ6 KLEVER Fluticasone/Salmeterol 1 inh 05/05/18 22:00 05/07/18 09:37 Advair 100-50 Diskus 14 Dose/Diskus IH 06/04/18 21:59 1 inh Q12 KLEVER Fluticasone Propionate 1 spray 05/06/18 10:00 05/07/18 09:37 Flonase Nasal [place] 50 Mcg/[place] 16 Gm NAREB 06/05/18 09:59 1 spray DAILY KLEVER (2) GERD (gastroesophageal reflux disease) Qualifiers: Esophagitis presence: esophagitis presence not specified Qualified Code(s) : K21.9 - Gastro-esophageal reflux disease without esophagitis Is this a current diagnosis for this admission?: Yes (3) Hyperlipidemia Qualifiers: Hyperlipidemia type: pure hypercholesterolemia Qualified Code(s): E78.00 - Pure hypercholesterolemia, unspecified; E78.0 - Pure hypercholesterolemia Is this a current diagnosis for this admission?: Yes
[2018-05-07 16:43] LABS: ABSOLUTE LYMPHOCYTES (AUTO) 1.3 10^3/uL (0.5-4.7); ABSOLUTE MONOCYTES (AUTO) 1.3 10^3/uL (0.1-1.4); ABSOLUTE NEUT (AUTO) 13.8 10^3/uL (1.7-8.2); BASOPHILS % (AUTO) 0.3 % (0-2); EOSINOPHILS % (AUTO) 0.1 % (0-6); HEMATOCRIT 36.4 % (36.0-47.0); HEMOGLOBIN 11.9 g/dL (12.0-15.5); LYMPHOCYTES % (AUTO) 7.8 % (13-45); MEAN CORPUSCULAR HEMOGLOBIN 28.8 pg (27.0-33.4); MEAN CORPUSCULAR HGB CONC 32.6 g/dL (32.0-36.0); MEAN CORPUSCULAR VOLUME 88 fl (80-97); PLATELET COUNT 309 10^3/uL (150-450); RED BLOOD COUNT 4.12 10^6/uL (3.72-5.28); RED CELL DISTRIBUTION WIDTH 14.3 % (11.5-14.0); SEGMENTED NEUTROPHILS % (AUTO) 83.8 % (42-78); TOTAL CELLS COUNTED % (AUTO) 100 %; WHITE BLOOD COUNT 16.4 10^3/uL (4.0-10.5)
[2018-05-07 17:01] LABS: ANION GAP 13 (5-19); BLOOD UREA NITROGEN 18 mg/dL (7-20); CALCIUM 9.6 mg/dL (8.4-10.2); CARBON DIOXIDE 24 mmol/L (22-30); CHLORIDE 105 mmol/L (98-107); GLUCOSE 144 mg/dL (75-110); POTASSIUM 3.9 mmol/L (3.6-5.0); SODIUM 141.5 mmol/L (137-145)
[2018-05-07] MEDS ORDERED: LEVOFLOXACIN 750 MG/D5W RTU 750 MG/150 ML RTUPB IV SCH (18:00)
[2018-05-07 19:20] LABS: ARTERIAL BLOOD FIO2 2L; ARTERIAL BLOOD H2CO3 1.28 mmol/L (1.05-1.35); ARTERIAL BLOOD HCO3 23.5 mmol/L (20-26); ARTERIAL BLOOD O2 SATURATION 95.4 % (94-98); ARTERIAL BLOOD PCO2 42.5 mmHg (35-45); ARTERIAL BLOOD PH 7.36 (7.35-7.45); ARTERIAL BLOOD PO2 79.8 mmHg (80-100); ARTERIAL BLOOD TOTAL CO2 24.8 mmol/L (21-25)
--- NOTE | 2018-05-07 21:52 | RADIOLOGY REPORT (SQ) ---
EXAM DESCRIPTION: CHEST SINGLE VIEW COMPLETED DATE/TIME: 05/07/2018 9:11 pm REASON FOR STUDY: Wheezing/Difficulty Breathing COMPARISON: 05/05/2018 EXAM PARAMETERS: NUMBER OF VIEWS: One view. TECHNIQUE: Single frontal radiographic view of the chest acquired. RADIATION DOSE: NA LIMITATIONS: None. FINDINGS: LUNGS AND PLEURA: No opacities, masses or pneumothorax. No pleural effusion. MEDIASTINUM AND HILAR STRUCTURES: No masses. Contour normal. HEART AND VASCULAR STRUCTURES: Cardiomegaly. No evidence of failure. BONES: No acute findings. HARDWARE: None in the chest. OTHER: No other significant finding. IMPRESSION: Cardiomegaly without CHF. TECHNICAL DOCUMENTATION: JOB ID: [id number] [employer]- All Rights Reserved Reading location - IP/workstation name: [email or web address]
[2018-05-07] MEDS: METHYLPREDNISOLONE INJ 125 MG/2 ML SDV IV SCH (22:12)
[2018-05-07] MEDS: SIMVASTATIN 10 MG TABLET PO SCH (22:12)
[2018-05-08] MEDS: LEVALBUTEROL HCL NEB 1.25 MG/3 ML AMPUL NEB SCH ×4 (02:06→20:23)
[2018-05-08] MEDS: LANSOPRAZOLE 30 MG TAB.RAP.DR PO SCH (05:11)
[2018-05-08] MEDS: PIPERACILLIN SODIUM/TAZOBACTAM 2.25 GM in NORMAL SALINE 50 ML IV SCH ×4 (05:11→21:05)
[2018-05-08] MEDS: METHYLPREDNISOLONE INJ 125 MG/2 ML SDV IV SCH (05:11)
[2018-05-08] MEDS ORDERED: METHYLPREDNISOLONE INJ 125 MG/2 ML SDV IV SCH (07:37)
--- NOTE | 2018-05-08 07:42 | PDOC PROGRESS REPORT ---
Subjective Progress Note for:: 05/08/18 Subjective:: Patient is currently doing fair this morning Was complaining of shortness of the breath and wheezing yesterday and patients started on IV Solu-Medrol and the Dr. Escobar's at the IV antibiotic Levaquin and the patient start feeling much better this morning Denied any chest pain denied any shortness of the breath Patient is currently on a full liquid diet chest x-ray suggested cardiomegaly but other than that no CHF Reason For Visit: SMALL BOWEL OBSTRUCTION Physical Exam Vital Signs: Temp Pulse Resp BP Pulse Ox 98.7 F 96 22 H 146/65 H 97 05/08/18 00:00 05/08/18 02:05 05/08/18 04:00 05/08/18 00:00 05/08/18 04:00 Pulse Oximeter Continuous Start: 05/07/18 16: 01 Freq: RTQ4 Status: Active Document 05/08/18 04:00 SFL (Rec: 05/08/18 05:42 SFL [email or web address]) Pulse Oximetry Assessment Oxygen Saturation (92-100) 97 Oxygen Delivery Method Bi-pap Fraction of Inspired Oxygen (FIO2) 30 Equipment Usage Equipment in Use Continuous SpO2 Machine # 11 Intake & Output 05/07/18 05/08/18 05/09/18 06:59 06:59 06:59 Intake Total 1547 1368 Balance 1547 1368 Weight 56.1 kg 56.3 kg General appearance: PRESENT: no acute distress, well-developed, well-nourished Head exam: PRESENT: atraumatic, normocephalic Eye exam: PRESENT: conjunctiva pink, EOMI, PERRLA. ABSENT: scleral icterus Ear exam: PRESENT: normal external ear exam Mouth exam: PRESENT: moist, tongue midline Neck exam: PRESENT: full ROM. ABSENT: carotid bruit, JVD, lymphadenopathy, thyromegaly Respiratory exam: PRESENT: clear to auscultation nakia Cardiovascular exam: PRESENT: RRR. ABSENT: diastolic murmur, rubs, systolic murmur Pulses: PRESENT: normal dorsalis pedis pul, +2 pedal pulses bilateral Vascular exam: PRESENT: normal capillary refill GI/Abdominal exam: PRESENT: normal bowel sounds, soft. ABSENT: distended, guarding, mass, organolmegaly, rebound, tenderness Additonal comments: Surgical dressing is intact Rectal exam: PRESENT: deferred Neurological exam: PRESENT: alert, awake, oriented to person, oriented to place , oriented to time, oriented to situation, CN II-XII grossly intact. ABSENT: motor sensory deficit Psychiatric exam: PRESENT: appropriate affect, normal mood. ABSENT: homicidal ideation, suicidal ideation Skin exam: PRESENT: dry, intact, warm. ABSENT: cyanosis, rash Results Laboratory Results: 05/07/18 16:30 05/07/18 16:30 05/07/18 05/07/18 05/07/18 16:30 16:30 17:30 WBC 16.4 H RBC 4.12 Hgb 11.9 L Hct 36.4 MCV 88 MCH 28.8 MCHC 32.6 RDW 14.3 H Plt Count 309 Seg Neutrophils % 83.8 H Lymphocytes % 7.8 L Monocytes % 8.0 Eosinophils % 0.1 Basophils % 0.3 Absolute Neutrophils 13.8 H Absolute Lymphocytes 1.3 Absolute Monocytes 1.3 Absolute Eosinophils 0.0 Absolute Basophils 0.0 Carbonic Acid 1.28 HCO3/H2CO3 Ratio 18:1 ABG pH 7.36 ABG pCO2 42.5 ABG pO2 79.8 L ABG HCO3 23.5 ABG O2 Saturation 95.4 ABG Base Excess -2.0 FiO2 2L Sodium 141.5 Potassium 3.9 Chloride 105 Carbon Dioxide 24 Anion Gap 13 BUN 18 Creatinine 0.88 Est GFR ( Amer) > 60 Est GFR (Non-Af Amer) > 60 Glucose 144 H Calcium 9.6 05/05/18 12:50 Clean Catch Midstream Urine Culture - Final 4,000 col/ml Impressions: Abdomen/Pelvis CTA 05/04/18 06:47 IMPRESSION: Dilated mid small bowel loops with air-fluid levels and adjacent small amount of free fluid. Findings are worrisome for closed loop small-bowel obstruction. Results discussed with Dr. Underwood in the emergency room. Chest/Abdomen CTA 05/06/18 12:00 IMPRESSION: NORMAL CTA OF THE CHEST. NO PULMONARY EMBOLI. MILD SCATTERED ATELECTASIS. Chest X-Ray 05/07/18 00:00 IMPRESSION: Cardiomegaly without CHF. Assessment & Plan - Diagnosis (1) Acute dyspnea Is this a current diagnosis for this admission?: Yes Plan: From the COPD acute exacerbations currently all stable (2) Asthma exacerbation attacks Qualifiers: Asthma severity: moderate Is this a current diagnosis for this admission?: Yes (3) Atelectasis of left lung Is this a current diagnosis for this admission?: Yes (4) GERD (gastroesophageal reflux disease) Qualifiers: Esophagitis presence: esophagitis presence not specified Qualified Code(s) : K21.9 - Gastro-esophageal reflux disease without esophagitis Is this a current diagnosis for this admission?: Yes (5) Hyperlipidemia Qualifiers: Hyperlipidemia type: pure hypercholesterolemia Qualified Code(s): E78.00 - Pure hypercholesterolemia, unspecified; E78.0 - Pure hypercholesterolemia Is this a current diagnosis for this admission?: Yes (6) Volvulus of intestine Is this a current diagnosis for this admission?: Yes Plan: This post exploratory laparotomy (7) COPD (chronic obstructive pulmonary disease) Qualifiers: COPD type: COPD with acute lower respiratory infection Qualified Code(s): J44.0 - Chronic obstructive pulmonary disease with acute lower respiratory infection Is this a current diagnosis for this admission?: Yes Plan: Reduce the IV steroid due to the elevated white count and continues to nebulizer treatments and IV antibiotic get the sputum cultures - Time Time Spent with patient: 15-24 minutes Medications reviewed and adjusted accordingly: Yes Anticipated discharge: Home Within: Other - Inpatient Certification Medical Necessity: Need Close Monitoring Due to Risk of Patient Decompensation, Need for IV Antibiotics Post Hospital Care: D/C Plate Driller Documentation - Plan Summary Plan Summary: We will get the 2D echocardiogram to assess the LV functions Reduce the IV steroid Nebulizer treatments Physical therapy Discussed with the daughter on the bedside regarding the patient's current conditions
[2018-05-08] MEDS: AMLODIPINE BESYLATE 5 MG TABLET PO SCH (11:18)
[2018-05-08] MEDS: FLUTICASONE NASAL SPRAY 50 MCG/SPRY 120 SPRAY/16 GM NAREB SCH (11:19)
[2018-05-08] MEDS: FLUTICASONE/SALMETEROL DISKUS 100-50 MCG/DOSE IH SCH ×2 (11:19→21:05)
[2018-05-08] MEDS ORDERED: GLYCERIN (ADULT) SUPP.RECT PR ONE (11:45)
--- NOTE | 2018-05-08 15:55 | PDOC PROGRESS REPORT ---
Subjective Progress Note for:: 05/08/18 Subjective:: Denies flatus yet but burping a lot Breathing better with steroids Reason For Visit: SMALL BOWEL OBSTRUCTION Physical Exam Vital Signs: Temp Pulse Resp BP Pulse Ox 98.8 F 99 20 151/67 H 99 05/08/18 11:12 05/08/18 14:18 05/08/18 14:18 05/08/18 11:12 05/08/18 14:18 Pulse Oximeter Continuous Start: 05/07/18 16: 01 Freq: RTQ4 Status: Active Document 05/08/18 14:18 TPO (Rec: 05/08/18 14:26 TPO [email or web address]) Pulse Oximetry Assessment Oxygen Saturation (92-100) 99 Oxygen Flow Rate (L/min) 3 Oxygen Delivery Method Nasal Cannula Fraction of Inspired Oxygen (FIO2) 32 Equipment Usage Equipment in Use Continuous SpO2 Machine # 11 Intake & Output 05/07/18 05/08/18 05/09/18 06:59 06:59 06:59 Intake Total 1547 1368 Balance 1547 1368 Weight 56.1 kg 56.3 kg Exam: Abdomen with binder. Not appear distended. Results Laboratory Results: 05/07/18 16:30 05/07/18 16:30 05/07/18 05/07/18 05/07/18 16:30 16:30 17:30 WBC 16.4 H RBC 4.12 Hgb 11.9 L Hct 36.4 MCV 88 MCH 28.8 MCHC 32.6 RDW 14.3 H Plt Count 309 Seg Neutrophils % 83.8 H Lymphocytes % 7.8 L Monocytes % 8.0 Eosinophils % 0.1 Basophils % 0.3 Absolute Neutrophils 13.8 H Absolute Lymphocytes 1.3 Absolute Monocytes 1.3 Absolute Eosinophils 0.0 Absolute Basophils 0.0 Carbonic Acid 1.28 HCO3/H2CO3 Ratio 18:1 ABG pH 7.36 ABG pCO2 42.5 ABG pO2 79.8 L ABG HCO3 23.5 ABG O2 Saturation 95.4 ABG Base Excess -2.0 FiO2 2L Sodium 141.5 Potassium 3.9 Chloride 105 Carbon Dioxide 24 Anion Gap 13 BUN 18 Creatinine 0.88 Est GFR ( Amer) > 60 Est GFR (Non-Af Amer) > 60 Glucose 144 H Calcium 9.6 05/05/18 12:50 Clean Catch Midstream Urine Culture - Final 4,000 col/ml Impressions: Abdomen/Pelvis CTA 05/04/18 06:47 IMPRESSION: Dilated mid small bowel loops with air-fluid levels and adjacent small amount of free fluid. Findings are worrisome for closed loop small-bowel obstruction. Results discussed with Dr. Underwood in the emergency room. Chest/Abdomen CTA 05/06/18 12:00 IMPRESSION: NORMAL CTA OF THE CHEST. NO PULMONARY EMBOLI. MILD SCATTERED ATELECTASIS. Chest X-Ray 05/07/18 00:00 IMPRESSION: Cardiomegaly without CHF. Assessment & Plan - Time Time Spent with patient: 15-24 minutes - Plan Summary Plan Summary: Continye full liquid diet Try rectal glycerine suppository to start BM Ambulate D/W patient's daughter at bedside.Patient not anxious to go home
[2018-05-08] MEDS: METHYLPREDNISOLONE INJ 40 MG/1 ML SDV IV SCH ×2 (16:20→21:05)
[2018-05-08] MEDS: ACETAMINOPHEN 325 MG TABLET PO PRN (21:00)
[2018-05-08] MEDS: SIMVASTATIN 10 MG TABLET PO SCH (21:05)
[2018-05-09] MEDS: LEVALBUTEROL HCL NEB 1.25 MG/3 ML AMPUL NEB SCH ×4 (01:35→19:36)
[2018-05-09] MEDS: PIPERACILLIN SODIUM/TAZOBACTAM 2.25 GM in NORMAL SALINE 50 ML IV SCH ×2 (03:09→08:54)
[2018-05-09] MEDS: NORMAL SALINE 1000 ML 1,000 ML IV PRN ×2 (03:09→20:12)
[2018-05-09 04:48] LABS: ABSOLUTE LYMPHOCYTES (AUTO) 0.7 10^3/uL (0.5-4.7); ABSOLUTE MONOCYTES (AUTO) 0.5 10^3/uL (0.1-1.4); ABSOLUTE NEUT (AUTO) 9.5 10^3/uL (1.7-8.2); BASOPHILS % (AUTO) 0.2 % (0-2); HEMATOCRIT 33.5 % (36.0-47.0); HEMOGLOBIN 11.3 g/dL (12.0-15.5); LYMPHOCYTES % (AUTO) 6.6 % (13-45); MEAN CORPUSCULAR HEMOGLOBIN 29.5 pg (27.0-33.4); MEAN CORPUSCULAR HGB CONC 33.8 g/dL (32.0-36.0); MEAN CORPUSCULAR VOLUME 87 fl (80-97); MONOCYTES % (AUTO) 4.3 % (3-13); PLATELET COUNT 301 10^3/uL (150-450); RED BLOOD COUNT 3.84 10^6/uL (3.72-5.28); SEGMENTED NEUTROPHILS % (AUTO) 88.9 % (42-78); TOTAL CELLS COUNTED % (AUTO) 100 %; WHITE BLOOD COUNT 10.7 10^3/uL (4.0-10.5)
[2018-05-09 05:14] LABS: ANION GAP 10 (5-19); BLOOD UREA NITROGEN 23 mg/dL (7-20); CARBON DIOXIDE 27 mmol/L (22-30); CHLORIDE 107 mmol/L (98-107); GLUCOSE 153 mg/dL (75-110); POTASSIUM 4.1 mmol/L (3.6-5.0); SODIUM 144.2 mmol/L (137-145)
[2018-05-09] MEDS: METHYLPREDNISOLONE INJ 40 MG/1 ML SDV IV SCH ×3 (05:45→21:49)
[2018-05-09] MEDS: LANSOPRAZOLE 30 MG TAB.RAP.DR PO SCH (05:45)
[2018-05-09] MEDS: AMLODIPINE BESYLATE 5 MG TABLET PO SCH (09:04)
[2018-05-09] MEDS: FLUTICASONE NASAL SPRAY 50 MCG/SPRY 120 SPRAY/16 GM NAREB SCH (09:04)
[2018-05-09] MEDS: FLUTICASONE/SALMETEROL DISKUS 100-50 MCG/DOSE IH SCH ×2 (09:05→21:49)
--- NOTE | 2018-05-09 13:27 | PDOC PROGRESS REPORT ---
Subjective Progress Note for:: 05/09/18 Subjective:: Patient is currently doing well Patient's denied any chest pain denied any shortness of the breath Patient's denied any abdominal pain Is currently on a full liquid diet Reason For Visit: SMALL BOWEL OBSTRUCTION Physical Exam Vital Signs: Temp Pulse Resp BP Pulse Ox 98.7 F 84 24 H 146/65 H 98 05/09/18 08:05 05/09/18 08:23 05/09/18 08:23 05/09/18 08:05 05/09/18 08:23 Pulse Oximeter Continuous Start: 05/07/18 16: 01 Freq: RTQ4 Status: Active Document 05/09/18 08:23 TPO (Rec: 05/09/18 08:35 TPO [email or web address]) Pulse Oximetry Assessment Oxygen Saturation (92-100) 98 Oxygen Flow Rate (L/min) 3 Oxygen Delivery Method Nasal Cannula Fraction of Inspired Oxygen (FIO2) 32 Equipment Usage Equipment in Use Continuous SpO2 Machine # 11 Intake & Output 05/08/18 05/09/18 05/10/18 06:59 06:59 06:59 Intake Total 1368 1945 Output Total 675 Balance 1368 1270 Weight 56.3 kg General appearance: PRESENT: no acute distress, well-developed, well-nourished Head exam: PRESENT: atraumatic, normocephalic Eye exam: PRESENT: conjunctiva pink, EOMI, PERRLA. ABSENT: scleral icterus Ear exam: PRESENT: normal external ear exam Mouth exam: PRESENT: moist, tongue midline Neck exam: PRESENT: full ROM. ABSENT: carotid bruit, JVD, lymphadenopathy, thyromegaly Respiratory exam: PRESENT: clear to auscultation nakia Cardiovascular exam: PRESENT: RRR. ABSENT: diastolic murmur, rubs, systolic murmur Pulses: PRESENT: normal dorsalis pedis pul, +2 pedal pulses bilateral Vascular exam: PRESENT: normal capillary refill GI/Abdominal exam: PRESENT: normal bowel sounds, soft. ABSENT: distended, guarding, mass, organolmegaly, rebound, tenderness Rectal exam: PRESENT: deferred Extremities exam: ABSENT: pedal edema Musculoskeletal exam: PRESENT: ambulatory Neurological exam: PRESENT: alert, awake, oriented to person, oriented to place , oriented to time, oriented to situation, CN II-XII grossly intact. ABSENT: motor sensory deficit Psychiatric exam: PRESENT: appropriate affect, normal mood. ABSENT: homicidal ideation, suicidal ideation Skin exam: PRESENT: dry, intact, warm. ABSENT: cyanosis, rash Results Laboratory Results: 05/09/18 04:24 05/09/18 04:24 05/09/18 05/09/18 04:24 04:24 WBC 10.7 H RBC 3.84 Hgb 11.3 L Hct 33.5 L MCV 87 MCH 29.5 MCHC 33.8 RDW 14.0 Plt Count 301 Seg Neutrophils % 88.9 H Lymphocytes % 6.6 L Monocytes % 4.3 Eosinophils % 0.0 Basophils % 0.2 Absolute Neutrophils 9.5 H Absolute Lymphocytes 0.7 Absolute Monocytes 0.5 Absolute Eosinophils 0.0 Absolute Basophils 0.0 Sodium 144.2 Potassium 4.1 Chloride 107 Carbon Dioxide 27 Anion Gap 10 BUN 23 H Creatinine 0.91 Est GFR ( Amer) > 60 Est GFR (Non-Af Amer) 59 L Glucose 153 H Calcium 9.0 05/08/18 05:00 Sputum Gram Stain - Final Impressions: Abdomen/Pelvis CTA 05/04/18 06:47 IMPRESSION: Dilated mid small bowel loops with air-fluid levels and adjacent small amount of free fluid. Findings are worrisome for closed loop small-bowel obstruction. Results discussed with Dr. Underwood in the emergency room. Chest/Abdomen CTA 05/06/18 12:00 IMPRESSION: NORMAL CTA OF THE CHEST. NO PULMONARY EMBOLI. MILD SCATTERED ATELECTASIS. Chest X-Ray 05/07/18 00:00 IMPRESSION: Cardiomegaly without CHF. Assessment & Plan - Diagnosis (1) Acute dyspnea Is this a current diagnosis for this admission?: Yes Plan: Currently all stable (2) Asthma exacerbation attacks Qualifiers: Asthma severity: moderate Is this a current diagnosis for this admission?: Yes Plan: Continues to IV steroid and may be considered to switch the p.o. steroid with a tapering dose of discharge (3) Atelectasis of left lung Is this a current diagnosis for this admission?: Yes Plan: Continues to nebulizer treatments (4) GERD (gastroesophageal reflux disease) Qualifiers: Esophagitis presence: esophagitis presence not specified Qualified Code(s) : K21.9 - Gastro-esophageal reflux disease without esophagitis Is this a current diagnosis for this admission?: Yes (5) Hyperlipidemia Qualifiers: Hyperlipidemia type: pure hypercholesterolemia Qualified Code(s): E78.00 - Pure hypercholesterolemia, unspecified; E78.0 - Pure hypercholesterolemia Is this a current diagnosis for this admission?: Yes (6) Volvulus of intestine Is this a current diagnosis for this admission?: Yes Plan: Follow with the surgery (7) COPD (chronic obstructive pulmonary disease) Qualifiers: COPD type: COPD with acute lower respiratory infection Qualified Code(s): J44.0 - Chronic obstructive pulmonary disease with acute lower respiratory infection Is this a current diagnosis for this admission?: Yes Plan: Reduce the IV steroid due to the elevated white count and continues to nebulizer treatments and IV antibiotic get the sputum cultures - Time Time Spent with patient: 15-24 minutes Medications reviewed and adjusted accordingly: Yes Anticipated discharge: Home Within: Other - Inpatient Certification Medical Necessity: Need Close Monitoring Due to Risk of Patient Decompensation Post Hospital Care: D/C Drying Oven Tender Documentation - Plan Summary Plan Summary: The patient remains stable will DC the IV Solu-Medrol and start on the p.o. steroids and continues to current medications
--- NOTE | 2018-05-09 14:08 | PDOC PROGRESS REPORT ---
Subjective Progress Note for:: 05/09/18 Subjective:: Had good BM today. Feeling a lot better C/O pains at incision site when she coughs Reason For Visit: SMALL BOWEL OBSTRUCTION Physical Exam Vital Signs: Temp Pulse Resp BP Pulse Ox 98.7 F 95 24 H 146/65 H 98 05/09/18 08:05 05/09/18 13:47 05/09/18 13:47 05/09/18 08:05 05/09/18 13:47 Pulse Oximeter Continuous Start: 05/07/18 16: 01 Freq: RTQ4 Status: Active Document 05/09/18 13:47 TPO (Rec: 05/09/18 14:00 TPO [email or web address]) Pulse Oximetry Assessment Oxygen Saturation (92-100) 98 Oxygen Flow Rate (L/min) 2 Oxygen Delivery Method Nasal Cannula Fraction of Inspired Oxygen (FIO2) 28 Equipment Usage Equipment in Use Continuous SpO2 Machine # 11 Intake & Output 05/08/18 05/09/18 05/10/18 06:59 06:59 06:59 Intake Total 1368 1945 Output Total 675 Balance 1368 1270 Weight 56.3 kg Exam: abdomen is soft with mild tenderness along incision site Results Laboratory Results: 05/09/18 04:24 05/09/18 04:24 05/09/18 05/09/18 04:24 04:24 WBC 10.7 H RBC 3.84 Hgb 11.3 L Hct 33.5 L MCV 87 MCH 29.5 MCHC 33.8 RDW 14.0 Plt Count 301 Seg Neutrophils % 88.9 H Lymphocytes % 6.6 L Monocytes % 4.3 Eosinophils % 0.0 Basophils % 0.2 Absolute Neutrophils 9.5 H Absolute Lymphocytes 0.7 Absolute Monocytes 0.5 Absolute Eosinophils 0.0 Absolute Basophils 0.0 Sodium 144.2 Potassium 4.1 Chloride 107 Carbon Dioxide 27 Anion Gap 10 BUN 23 H Creatinine 0.91 Est GFR ( Amer) > 60 Est GFR (Non-Af Amer) 59 L Glucose 153 H Calcium 9.0 05/04/18 10:00 Blood Blood Culture - Final NO GROWTH IN 5 DAYS 05/08/18 05:00 Sputum Gram Stain - Final Impressions: Abdomen/Pelvis CTA 05/04/18 06:47 IMPRESSION: Dilated mid small bowel loops with air-fluid levels and adjacent small amount of free fluid. Findings are worrisome for closed loop small-bowel obstruction. Results discussed with Dr. Underwood in the emergency room. Chest/Abdomen CTA 05/06/18 12:00 IMPRESSION: NORMAL CTA OF THE CHEST. NO PULMONARY EMBOLI. MILD SCATTERED ATELECTASIS. Chest X-Ray 05/07/18 00:00 IMPRESSION: Cardiomegaly without CHF. Assessment & Plan - Time Time Spent with patient: 15-24 minutes - Plan Summary Plan Summary: Start to increase diet. Possible discharge tomorrow Refuses rehab placement
[2018-05-09] MEDS: TRAMADOL HCL 50 MG TABLET PO PRN (20:08)
[2018-05-09] MEDS: SIMVASTATIN 10 MG TABLET PO SCH (21:49)
[2018-05-10] MEDS: LEVALBUTEROL HCL NEB 1.25 MG/3 ML AMPUL NEB SCH ×4 (01:49→19:54)
[2018-05-10] MEDS: LANSOPRAZOLE 30 MG TAB.RAP.DR PO SCH (06:00)
[2018-05-10] MEDS: METHYLPREDNISOLONE INJ 40 MG/1 ML SDV IV SCH (06:00)
[2018-05-10 06:53] LABS: ANION GAP 9 (5-19); BLOOD UREA NITROGEN 21 mg/dL (7-20); CALCIUM 8.6 mg/dL (8.4-10.2); CARBON DIOXIDE 26 mmol/L (22-30); CHLORIDE 109 mmol/L (98-107); GLUCOSE 150 mg/dL (75-110); POTASSIUM 4.2 mmol/L (3.6-5.0); SODIUM 144.3 mmol/L (137-145)
--- NOTE | 2018-05-10 09:35 | PDOC PROGRESS REPORT ---
Subjective Progress Note for:: 05/10/18 Subjective:: Patient is currently feeling much better No chest pain no shortness of the breath no wheezing Patient's daughter at the p.o. intake well Reason For Visit: SMALL BOWEL OBSTRUCTION Physical Exam Vital Signs: Temp Pulse Resp BP Pulse Ox 98.4 F 67 18 141/50 H 97 05/10/18 08:00 05/10/18 08:23 05/10/18 08:23 05/10/18 08:00 05/10/18 08:23 Pulse Oximeter Continuous Start: 05/07/18 16: 01 Freq: RTQ4 Status: Active Document 05/10/18 08:23 TPO (Rec: 05/10/18 08:59 TPO [email or web address]) Pulse Oximetry Assessment Oxygen Saturation (92-100) 97 Oxygen Flow Rate (L/min) 2 Oxygen Delivery Method Nasal Cannula Fraction of Inspired Oxygen (FIO2) 28 Equipment Usage Equipment in Use Continuous SpO2 Machine # 11 Intake & Output 05/09/18 05/10/18 05/11/18 06:59 06:59 06:59 Intake Total 1945 1826 Output Total 675 Balance 1270 1826 Weight 61 kg General appearance: PRESENT: no acute distress, well-developed, well-nourished Head exam: PRESENT: atraumatic, normocephalic Eye exam: PRESENT: conjunctiva pink, EOMI, PERRLA. ABSENT: scleral icterus Ear exam: PRESENT: normal external ear exam Mouth exam: PRESENT: moist, tongue midline Neck exam: PRESENT: full ROM. ABSENT: carotid bruit, JVD, lymphadenopathy, thyromegaly Respiratory exam: PRESENT: clear to auscultation nakia Cardiovascular exam: PRESENT: RRR. ABSENT: diastolic murmur, rubs, systolic murmur Pulses: PRESENT: normal dorsalis pedis pul, +2 pedal pulses bilateral Vascular exam: PRESENT: normal capillary refill GI/Abdominal exam: PRESENT: normal bowel sounds, soft. ABSENT: distended, guarding, mass, organolmegaly, rebound, tenderness Additonal comments: Surgical incision is intact Rectal exam: PRESENT: deferred Neurological exam: PRESENT: alert, awake, oriented to person, oriented to place , oriented to time, oriented to situation, CN II-XII grossly intact. ABSENT: motor sensory deficit Psychiatric exam: PRESENT: appropriate affect, normal mood. ABSENT: homicidal ideation, suicidal ideation Skin exam: PRESENT: dry, intact, warm. ABSENT: cyanosis, rash Results Laboratory Results: 05/09/18 04:24 05/10/18 06:05 05/10/18 06:05 Sodium 144.3 Potassium 4.2 Chloride 109 H Carbon Dioxide 26 Anion Gap 9 BUN 21 H Creatinine 0.72 Est GFR ( Amer) > 60 Est GFR (Non-Af Amer) > 60 Glucose 150 H Calcium 8.6 05/04/18 14:18 Blood Blood Culture - Final NO GROWTH IN 5 DAYS 05/08/18 05:00 Sputum Gram Stain - Final 05/08/18 05:00 Sputum Sputum Culture - Final C.albicans/C.dubliniensis Normal Martha Absent 05/04/18 10:00 Blood Blood Culture - Final NO GROWTH IN 5 DAYS Impressions: Abdomen/Pelvis CTA 05/04/18 06:47 IMPRESSION: Dilated mid small bowel loops with air-fluid levels and adjacent small amount of free fluid. Findings are worrisome for closed loop small-bowel obstruction. Results discussed with Dr. Underwood in the emergency room. Chest/Abdomen CTA 05/06/18 12:00 IMPRESSION: NORMAL CTA OF THE CHEST. NO PULMONARY EMBOLI. MILD SCATTERED ATELECTASIS. Chest X-Ray 05/07/18 00:00 IMPRESSION: Cardiomegaly without CHF. Assessment & Plan - Diagnosis (1) Acute dyspnea Is this a current diagnosis for this admission?: Yes Plan: Currently all better (2) Asthma exacerbation attacks Qualifiers: Asthma severity: moderate Is this a current diagnosis for this admission?: Yes Plan: Continues to IV steroid and may be considered to switch the p.o. steroid with a tapering dose of discharge (3) Atelectasis of left lung Is this a current diagnosis for this admission?: Yes Plan: Continues to nebulizer treatments (4) GERD (gastroesophageal reflux disease) Qualifiers: Esophagitis presence: esophagitis presence not specified Qualified Code(s) : K21.9 - Gastro-esophageal reflux disease without esophagitis Is this a current diagnosis for this admission?: Yes (5) Hyperlipidemia Qualifiers: Hyperlipidemia type: pure hypercholesterolemia Qualified Code(s): E78.00 - Pure hypercholesterolemia, unspecified; E78.0 - Pure hypercholesterolemia Is this a current diagnosis for this admission?: Yes (6) Volvulus of intestine Is this a current diagnosis for this admission?: Yes Plan: Follow with the surgery (7) COPD (chronic obstructive pulmonary disease) Qualifiers: COPD type: COPD with acute lower respiratory infection Qualified Code(s): J44.0 - Chronic obstructive pulmonary disease with acute lower respiratory infection Is this a current diagnosis for this admission?: Yes Plan: Start on a p.o. 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 steroid and consider p.o. antibiotic and a discharge and the nebulizer treatments
[2018-05-10] MEDS: FLUTICASONE NASAL SPRAY 50 MCG/SPRY 120 SPRAY/16 GM NAREB SCH (10:43)
[2018-05-10] MEDS: PREDNISONE 20 MG TABLET PO SCH ×2 (10:43→18:03)
[2018-05-10] MEDS: AMLODIPINE BESYLATE 5 MG TABLET PO SCH (10:43)
[2018-05-10] MEDS: FLUTICASONE/SALMETEROL DISKUS 100-50 MCG/DOSE IH SCH ×2 (10:44→21:13)
--- NOTE | 2018-05-10 17:14 | PDOC PROGRESS REPORT ---
Subjective Progress Note for:: 05/10/18 Reason For Visit: SMALL BOWEL OBSTRUCTION Physical Exam Vital Signs: Temp Pulse Resp BP Pulse Ox 97.8 F 94 18 134/59 H 97 05/10/18 16:00 05/10/18 16:00 05/10/18 16:00 05/10/18 16:00 05/10/18 16:49 Pulse Oximeter Continuous Start: 05/07/18 16: 01 Freq: RTQ4 Status: Active Document 05/10/18 16:49 [facility] (Rec: 05/10/18 16:49 [facility] [email or web address]) Pulse Oximetry Assessment Oxygen Saturation (92-100) 97 Oxygen Flow Rate (L/min) 3 Oxygen Delivery Method Nasal Cannula Equipment Usage Equipment in Use Continuous SpO2 Machine # 11 Intake & Output 05/09/18 05/10/18 05/11/18 06:59 06:59 06:59 Intake Total 1945 1826 Output Total 675 Balance 1270 1826 Weight 61 kg Results Laboratory Results: 05/09/18 04:24 05/10/18 06:05 05/10/18 06:05 Sodium 144.3 Potassium 4.2 Chloride 109 H Carbon Dioxide 26 Anion Gap 9 BUN 21 H Creatinine 0.72 Est GFR ( Amer) > 60 Est GFR (Non-Af Amer) > 60 Glucose 150 H Calcium 8.6 05/05/18 13:35 Blood Blood Culture - Final NO GROWTH IN 5 DAYS 05/05/18 13:45 Blood Blood Culture - Final NO GROWTH IN 5 DAYS 05/04/18 14:18 Blood Blood Culture - Final NO GROWTH IN 5 DAYS 05/08/18 05:00 Sputum Gram Stain - Final 05/08/18 05:00 Sputum Sputum Culture - Final C.albicans/C.dubliniensis Normal Martha Absent 05/04/18 10:00 Blood Blood Culture - Final NO GROWTH IN 5 DAYS Impressions: Abdomen/Pelvis CTA 05/04/18 06:47 IMPRESSION: Dilated mid small bowel loops with air-fluid levels and adjacent small amount of free fluid. Findings are worrisome for closed loop small-bowel obstruction. Results discussed with Dr. Underwood in the emergency room. Chest/Abdomen CTA 05/06/18 12:00 IMPRESSION: NORMAL CTA OF THE CHEST. NO PULMONARY EMBOLI. MILD SCATTERED ATELECTASIS. Chest X-Ray 05/07/18 00:00 IMPRESSION: Cardiomegaly without CHF. Assessment & Plan - Plan Summary Plan Summary: This is an 87-year-old female status post exploratory laparotomy for small bowel obstruction. She is doing very well today. She is tolerating a diet. She has had a bowel movement. Her breathing is much improved. Plan for discharge when cleared medically (possibly tomorrow).
[2018-05-10] MEDS: NORMAL SALINE 1000 ML 1,000 ML IV PRN (18:37)
--- NOTE | 2018-05-10 20:02 | XCELERA REPORT ---
[address] [address] Transthoracic Echocardiogram Report Name: MATHEW BOUDREAUX Age: 87 yrs Gender: Female : 1930 Patient Status: Inpatient Patient Location: [address] [place] [address] Study Date: 05/09/2018 02:47 PM Height: 60 in Weight: 124 lb BSA: 1.5 m2 Procedure: A two-dimensional transthoracic echocardiogram with color flow and Doppler was performed. The study was technically difficult with many images being suboptimal in quality. Reason For Study: SOB History: Shortness of breath. Ordering Physician: TERESITA HICKS Performed By: Sussy Montano Interpretation Summary The left ventricle is normal in size. There is normal left ventricular wall thickness. LV EF is 60% Left ventricular systolic function is normal. Doppler measurements suggest pseudonormalized left ventricular relaxation, which is associated with grade II/IV or mild to moderate diastolic dysfunction The left ventricular wall motion is normal. The right ventricle is normal in size and function. The left atrial size is normal. There is no evidence of mitral valve prolapse. There is no mitral valve stenosis. There is a trace amount of mitral regurgitation There is mild aortic stenosis There is a peak gradient of 17 mm of Hg. There is no LVOT obstruction. No hemodynamically significant valvular aortic stenosis. No aortic regurgitation is present. There is no tricuspid stenosis. There is a trace to mild amount of tricuspid regurgitation There is mild pulmonary hypertension by echo RVSP is 43 mm of Hg , with RA mean of 10. There is no pericardial effusion. MMode/2D Measurements & Calculations RVDd: 2.6 cm LVIDd: 4.5 cm FS: 30.5 % Ao root diam: 3.0 cm IVSd: 0.83 cm LVIDs: 3.1 cm EDV(Teich): 93.9 ml LVPWd: 0.77 cm ESV(Teich): 39.4 ml Ao root area: 7.3 cm2 EF(Teich): 58.1 % Doppler Measurements & Calculations MV E max gildardo: MV dec slope: Ao V2 max: LV V1 max P.8 cm/sec 204.6 cm/sec 7.4 mmHg MV A max gildardo: 441.5 cm/sec2 Ao max PG: LV V1 max: 158.7 cm/sec MV dec time: 16.7 mmHg 135.7 cm/sec MV E/A: 0.53 0.19 sec PA V2 max: TR max gildardo: 121.0 cm/sec 284.4 cm/sec PA max P.9 mmHgTR max P.4 mmHg Left Ventricle The left ventricle is normal in size. There is normal left ventricular wall thickness. LV EF is 60%. Left ventricular systolic function is normal. Doppler measurements suggest pseudonormalized left ventricular relaxation, which is associated with grade II/IV or mild to moderate diastolic dysfunction. The left ventricular wall motion is normal. There is no thrombus. Right Ventricle The right ventricle is normal in size and function. Atria The right atrium is normal. The left atrial size is normal. Mitral Valve There is no evidence of mitral valve prolapse. There is no vegetation seen on the mitral valve. There is no mitral valve stenosis. There is a trace amount of mitral regurgitation. Aortic Valve There is no aortic valvular vegetation. There is mild aortic stenosis. There is a peak gradient of 17 mm of Hg. There is no LVOT obstruction. No hemodynamically significant valvular aortic stenosis. No aortic regurgitation is present. Tricuspid Valve There is no tricuspid stenosis. There is a trace to mild amount of tricuspid regurgitation. There is mild pulmonary hypertension by echo. RVSP is 43 mm of Hg , with RA mean of 10. Pulmonic Valve There is no pulmonic valvular stenosis. There is no pulmonic valvular regurgitation. Great Vessels The aortic root is not well visualized but is probably normal size. Effusions There is no pericardial effusion. : TERESITA HICKS > Isabela Rodriguez
[2018-05-10] MEDS: SIMVASTATIN 10 MG TABLET PO SCH (21:13)
[2018-05-11] MEDS: LEVALBUTEROL HCL NEB 1.25 MG/3 ML AMPUL NEB SCH ×3 (03:48→13:56)
[2018-05-11] MEDS: LANSOPRAZOLE 30 MG TAB.RAP.DR PO SCH (04:12)
[2018-05-11 07:18] LABS: ANION GAP 11 (5-19); BLOOD UREA NITROGEN 21 mg/dL (7-20); CARBON DIOXIDE 25 mmol/L (22-30); CHLORIDE 108 mmol/L (98-107); GLUCOSE 99 mg/dL (75-110); POTASSIUM 3.9 mmol/L (3.6-5.0); SODIUM 143.9 mmol/L (137-145)
[2018-05-11] MEDS: AMLODIPINE BESYLATE 5 MG TABLET PO SCH (09:19)
[2018-05-11] MEDS: FLUTICASONE/SALMETEROL DISKUS 100-50 MCG/DOSE IH SCH (09:20)
[2018-05-11] MEDS: PREDNISONE 20 MG TABLET PO SCH ×2 (09:20→17:35)
[2018-05-11] MEDS: FLUTICASONE NASAL SPRAY 50 MCG/SPRY 120 SPRAY/16 GM NAREB SCH (09:20)
--- NOTE | 2018-05-11 12:34 | PDOC PROGRESS REPORT ---
Subjective Progress Note for:: 05/11/18 Subjective:: Patient is currently doing much better Patient's denied any chest pain denied any shortness of the breath Since p.o. intake is good Patient to echocardiogram is all stable Reason For Visit: SMALL BOWEL OBSTRUCTION Physical Exam Vital Signs: Temp Pulse Resp BP Pulse Ox 99.2 F 73 18 138/63 H 94 05/11/18 11:44 05/11/18 11:44 05/11/18 11:44 05/11/18 11:44 05/11/18 11:44 Pulse Oximeter Continuous Start: 05/07/18 16: 01 Freq: RTQ4 Status: Active Document 05/11/18 07:50 SFL (Rec: 05/11/18 08:06 SFL [email or web address]) Pulse Oximetry Assessment Oxygen Saturation (92-100) 97 Oxygen Delivery Method Room Air Fraction of Inspired Oxygen (FIO2) 21 Equipment Usage Equipment in Use Continuous SpO2 Machine # 11 Intake & Output 05/10/18 05/11/18 05/12/18 06:59 06:59 06:59 Intake Total 1826 1480 Balance 1826 1480 Weight 61 kg 61.1 kg General appearance: PRESENT: no acute distress, well-developed, well-nourished Head exam: PRESENT: atraumatic, normocephalic Eye exam: PRESENT: conjunctiva pink, EOMI, PERRLA. ABSENT: scleral icterus Ear exam: PRESENT: normal external ear exam Mouth exam: PRESENT: moist, tongue midline Neck exam: PRESENT: full ROM. ABSENT: carotid bruit, JVD, lymphadenopathy, thyromegaly Respiratory exam: PRESENT: clear to auscultation nakia Cardiovascular exam: PRESENT: RRR. ABSENT: diastolic murmur, rubs, systolic murmur Pulses: PRESENT: normal dorsalis pedis pul, +2 pedal pulses bilateral Vascular exam: PRESENT: normal capillary refill GI/Abdominal exam: PRESENT: normal bowel sounds, soft. ABSENT: distended, guarding, mass, organolmegaly, rebound, tenderness Rectal exam: PRESENT: deferred Musculoskeletal exam: PRESENT: ambulatory Neurological exam: PRESENT: alert, awake, oriented to person, oriented to place , oriented to time, oriented to situation, CN II-XII grossly intact. ABSENT: motor sensory deficit Psychiatric exam: PRESENT: appropriate affect, normal mood. ABSENT: homicidal ideation, suicidal ideation Skin exam: PRESENT: dry, intact, warm. ABSENT: cyanosis, rash Results Laboratory Results: 05/09/18 04:24 05/11/18 06:49 05/11/18 06:49 Sodium 143.9 Potassium 3.9 Chloride 108 H Carbon Dioxide 25 Anion Gap 11 BUN 21 H Creatinine 0.65 Est GFR ( Amer) > 60 Est GFR (Non-Af Amer) > 60 Glucose 99 Calcium 8.0 L 05/05/18 13:35 Blood Blood Culture - Final NO GROWTH IN 5 DAYS 05/05/18 13:45 Blood Blood Culture - Final NO GROWTH IN 5 DAYS Impressions: Abdomen/Pelvis CTA 05/04/18 06:47 IMPRESSION: Dilated mid small bowel loops with air-fluid levels and adjacent small amount of free fluid. Findings are worrisome for closed loop small-bowel obstruction. Results discussed with Dr. Underwood in the emergency room. Chest/Abdomen CTA 05/06/18 12:00 IMPRESSION: NORMAL CTA OF THE CHEST. NO PULMONARY EMBOLI. MILD SCATTERED ATELECTASIS. Chest X-Ray 05/07/18 00:00 IMPRESSION: Cardiomegaly without CHF. Assessment & Plan - Diagnosis (1) Acute dyspnea Is this a current diagnosis for this admission?: Yes Plan: Currently all resolved Discussed with Dr. Escobar/the patient's walk for 6 minute and the patient's need any oxygen or not before the discharge and discussed with the Dr. Dolan the general surgery who admit the patient (2) Asthma exacerbation attacks Qualifiers: Asthma severity: moderate Is this a current diagnosis for this admission?: Yes Plan: Continues use to current inhaler and nebulizer treatment at Home (3) Atelectasis of left lung Is this a current diagnosis for this admission?: Yes (4) GERD (gastroesophageal reflux disease) Qualifiers: Esophagitis presence: esophagitis presence not specified Qualified Code(s) : K21.9 - Gastro-esophageal reflux disease without esophagitis Is this a current diagnosis for this admission?: Yes (5) Hyperlipidemia Qualifiers: Hyperlipidemia type: pure hypercholesterolemia Qualified Code(s): E78.00 - Pure hypercholesterolemia, unspecified; E78.0 - Pure hypercholesterolemia Is this a current diagnosis for this admission?: Yes (6) Volvulus of intestine Is this a current diagnosis for this admission?: Yes (7) COPD (chronic obstructive pulmonary disease) Qualifiers: COPD type: COPD with acute lower respiratory infection Qualified Code(s): J44.0 - Chronic obstructive pulmonary disease with acute lower respiratory infection Is this a current diagnosis for this admission?: Yes Plan: We will give a tapering dose of the steroid at [place] continues to nebulizer treatments - Time Time Spent with patient: 15-24 minutes Medications reviewed and adjusted accordingly: Yes Anticipated discharge: Home Within: Other - Inpatient Certification Medical Necessity: Need Close Monitoring Due to Risk of Patient Decompensation 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
--- NOTE | 2018-05-11 15:34 | RADIOLOGY REPORT (SQ) ---
EXAM DESCRIPTION: CHEST 2 VIEWS COMPLETED DATE/TIME: 05/11/2018 3:11 pm REASON FOR STUDY: LABORED RESPIRATIONS COMPARISON: 11/19/2017 EXAM PARAMETERS: NUMBER OF VIEWS: two views TECHNIQUE: Digital Frontal and Lateral radiographic views of the chest acquired. RADIATION DOSE: NA LIMITATIONS: none FINDINGS: LUNGS AND PLEURA: No opacities, masses or pneumothorax. No pleural effusion. MEDIASTINUM AND HILAR STRUCTURES: No masses or contour abnormalities. HEART AND VASCULAR STRUCTURES: Heart size is borderline. No pulmonary edema. BONES: No acute findings. HARDWARE: None in the chest. OTHER: No other significant finding. IMPRESSION: Borderline cardiomegaly with no CHF. TECHNICAL DOCUMENTATION: JOB ID: [id number] [employer]- All Rights Reserved Reading location - IP/workstation name: [email or web address]
[2018-05-11] MEDS ORDERED: FUROSEMIDE INJ/PF 20 MG/2 ML SDV IV ONE (17:00)
[2018-05-11 18:06] VITALS: BP 125/46
--- NOTE | 2018-05-13 17:32 | PDOC PROGRESS REPORT ---
Subjective Progress Note for:: 05/08/18 Subjective:: Confused Reason For Visit: SMALL BOWEL OBSTRUCTION Physical Exam Vital Signs: Temp Pulse Resp BP Pulse Ox 98.8 F 99 20 151/67 H 99 05/08/18 11:12 05/08/18 14:18 05/08/18 14:18 05/08/18 11:12 05/08/18 14:18 Pulse Oximeter Continuous Start: 05/07/18 16: 01 Freq: RTQ4 Status: Active Document 05/08/18 14:18 TPO (Rec: 05/08/18 14:26 TPO [email or web address]) Pulse Oximetry Assessment Oxygen Saturation (92-100) 99 Oxygen Flow Rate (L/min) 3 Oxygen Delivery Method Nasal Cannula Fraction of Inspired Oxygen (FIO2) 32 Equipment Usage Equipment in Use Continuous SpO2 Machine # 11 Intake & Output 05/07/18 05/08/18 05/09/18 06:59 06:59 06:59 Intake Total 1547 1368 Balance 1547 1368 Weight 56.1 kg 56.3 kg General appearance: PRESENT: no acute distress, disheveled Head exam: PRESENT: atraumatic, normocephalic Eye exam: PRESENT: conjunctiva pale, EOMI. ABSENT: nystagmus, periorbital swelling, scleral icterus Mouth exam: PRESENT: dry mucosa, neck supple, tongue midline Neck exam: ABSENT: carotid bruit, JVD, lymphadenopathy, thyromegaly, tracheal deviation, tracheostomy Respiratory exam: PRESENT: decreased breath sounds, prolonged expiratory phas, rhonchi, unlabored. ABSENT: retraction, stridor Cardiovascular exam: PRESENT: RRR, +S1, +S2 Pulses: PRESENT: normal radial pulses GI/Abdominal exam: PRESENT: hypoactive bowel sounds, soft Extremities exam: ABSENT: calf tenderness, clubbing, joint swelling, pedal edema Musculoskeletal exam: ABSENT: deformity, dislocation Neurological exam: PRESENT: awake Psychiatric exam: PRESENT: flat affect Skin exam: PRESENT: dry, warm Results Laboratory Results: 05/07/18 16:30 05/07/18 16:30 05/07/18 05/07/18 05/07/18 16:30 16:30 17:30 WBC 16.4 H RBC 4.12 Hgb 11.9 L Hct 36.4 MCV 88 MCH 28.8 MCHC 32.6 RDW 14.3 H Plt Count 309 Seg Neutrophils % 83.8 H Lymphocytes % 7.8 L Monocytes % 8.0 Eosinophils % 0.1 Basophils % 0.3 Absolute Neutrophils 13.8 H Absolute Lymphocytes 1.3 Absolute Monocytes 1.3 Absolute Eosinophils 0.0 Absolute Basophils 0.0 Carbonic Acid 1.28 HCO3/H2CO3 Ratio 18:1 ABG pH 7.36 ABG pCO2 42.5 ABG pO2 79.8 L ABG HCO3 23.5 ABG O2 Saturation 95.4 ABG Base Excess -2.0 FiO2 2L Sodium 141.5 Potassium 3.9 Chloride 105 Carbon Dioxide 24 Anion Gap 13 BUN 18 Creatinine 0.88 Est GFR ( Amer) > 60 Est GFR (Non-Af Amer) > 60 Glucose 144 H Calcium 9.6 05/05/18 12:50 Clean Catch Midstream Urine Culture - Final 4,000 col/ml Impressions: Abdomen/Pelvis CTA 05/04/18 06:47 IMPRESSION: Dilated mid small bowel loops with air-fluid levels and adjacent small amount of free fluid. Findings are worrisome for closed loop small-bowel obstruction. Results discussed with Dr. Underwood in the emergency room. Chest/Abdomen CTA 05/06/18 12:00 IMPRESSION: NORMAL CTA OF THE CHEST. NO PULMONARY EMBOLI. MILD SCATTERED ATELECTASIS. Chest X-Ray 05/07/18 00:00 IMPRESSION: Cardiomegaly without CHF. Assessment & Plan - Diagnosis (1) Asthma exacerbation attacks Qualifiers: Asthma severity: moderate Is this a current diagnosis for this admission?: Yes Plan: initiate spireva Generic Name Dose Route Start Last Admin Trade Name Freq PRN Reason Stop Dose Admin Levalbuterol HCl 1.25 mg 05/06/18 14:00 05/07/18 08:02 Xopenex Neb 1.25 Mg/3 Ml Ampul NEB 06/05/18 13:59 1.25 mg RTQ6 KLEVER Fluticasone/Salmeterol 1 inh 05/05/18 22:00 05/07/18 09:37 Advair 100-50 Diskus 14 Dose/Diskus IH 06/04/18 21:59 1 inh Q12 KLEVER Fluticasone Propionate 1 spray 05/06/18 10:00 05/07/18 09:37 Flonase Nasal [place] 50 Mcg/[place] 16 Gm NAREB 06/05/18 09:59 1 spray DAILY KLEVER (2) GERD (gastroesophageal reflux disease) Qualifiers: Esophagitis presence: esophagitis presence not specified Qualified Code(s) : K21.9 - Gastro-esophageal reflux disease without esophagitis Is this a current diagnosis for this admission?: Yes (3) Hyperlipidemia Qualifiers: Hyperlipidemia type: pure hypercholesterolemia Qualified Code(s): E78.00 - Pure hypercholesterolemia, unspecified; E78.0 - Pure hypercholesterolemia Is this a current diagnosis for this admission?: Yes
--- NOTE | 2018-05-13 17:37 | PDOC PROGRESS REPORT ---
Subjective Progress Note for:: 05/09/18 Subjective:: Confused Reason For Visit: SMALL BOWEL OBSTRUCTION Physical Exam Vital Signs: Temp Pulse Resp BP Pulse Ox 98.2 F 96 16 125/46 L 95 05/11/18 17:54 05/11/18 17:54 05/11/18 17:54 05/11/18 17:54 05/11/18 17:54 Pulse Oximeter Continuous Start: 05/07/18 16: 01 Freq: RTQ4 Status: Discharge Document 05/11/18 16:12 HCR (Rec: 05/11/18 16:12 HCR [email or web address]) Pulse Oximetry Assessment Oxygen Saturation (92-100) 95 Oxygen Delivery Method Room Air Fraction of Inspired Oxygen (FIO2) 21 Equipment Usage Equipment in Use Continuous SpO2 Machine # 11 General appearance: PRESENT: no acute distress, cooperative, disheveled Head exam: PRESENT: atraumatic, normocephalic Eye exam: PRESENT: conjunctiva pale, EOMI. ABSENT: nystagmus, periorbital swelling, scleral icterus Mouth exam: PRESENT: moist, neck supple, tongue midline Neck exam: ABSENT: carotid bruit, JVD, lymphadenopathy, thyromegaly, tracheal deviation, tracheostomy Respiratory exam: PRESENT: decreased breath sounds, prolonged expiratory phas, rhonchi, unlabored, wheezes - Scattered bilateral. ABSENT: rales, retraction, stridor Cardiovascular exam: PRESENT: RRR, +S1, +S2 Pulses: PRESENT: normal radial pulses GI/Abdominal exam: PRESENT: hypoactive bowel sounds, soft Extremities exam: ABSENT: calf tenderness, clubbing, joint swelling Musculoskeletal exam: ABSENT: deformity, dislocation Neurological exam: PRESENT: awake Psychiatric exam: PRESENT: flat affect Skin exam: PRESENT: dry, warm Results Laboratory Results: 05/09/18 04:24 05/11/18 06:49 Impressions: Abdomen/Pelvis CTA 05/04/18 06:47 IMPRESSION: Dilated mid small bowel loops with air-fluid levels and adjacent small amount of free fluid. Findings are worrisome for closed loop small-bowel obstruction. Results discussed with Dr. Underwood in the emergency room. Chest/Abdomen CTA 05/06/18 12:00 IMPRESSION: NORMAL CTA OF THE CHEST. NO PULMONARY EMBOLI. MILD SCATTERED ATELECTASIS. Chest X-Ray 05/11/18 00:00 IMPRESSION: Borderline cardiomegaly with no CHF. Assessment & Plan - Diagnosis (1) Asthma exacerbation attacks Qualifiers: Asthma severity: moderate Is this a current diagnosis for this admission?: Yes Plan: initiate spireva Generic Name Dose Route Start Last Admin Trade Name Freq PRN Reason Stop Dose Admin Levalbuterol HCl 1.25 mg 05/06/18 14:00 05/07/18 08:02 Xopenex Neb 1.25 Mg/3 Ml Ampul NEB 06/05/18 13:59 1.25 mg RTQ6 KLEVER Fluticasone/Salmeterol 1 inh 05/05/18 22:00 05/07/18 09:37 Advair 100-50 Diskus 14 Dose/Diskus IH 06/04/18 21:59 1 inh Q12 KLEVER Fluticasone Propionate 1 spray 05/06/18 10:00 05/07/18 09:37 Flonase Nasal [place] 50 Mcg/[place] 16 Gm NAREB 06/05/18 09:59 1 spray DAILY KLEVER (2) GERD (gastroesophageal reflux disease) Qualifiers: Esophagitis presence: esophagitis presence not specified Qualified Code(s) : K21.9 - Gastro-esophageal reflux disease without esophagitis Is this a current diagnosis for this admission?: Yes (3) Hyperlipidemia Qualifiers: Hyperlipidemia type: pure hypercholesterolemia Qualified Code(s): E78.00 - Pure hypercholesterolemia, unspecified; E78.0 - Pure hypercholesterolemia Is this a current diagnosis for this admission?: Yes
--- NOTE | 2018-05-13 17:39 | PDOC PROGRESS REPORT ---
Subjective Progress Note for:: 05/10/18 Subjective:: Confused Reason For Visit: SMALL BOWEL OBSTRUCTION Physical Exam Vital Signs: Temp Pulse Resp BP Pulse Ox 98.2 F 96 16 125/46 L 95 05/11/18 17:54 05/11/18 17:54 05/11/18 17:54 05/11/18 17:54 05/11/18 17:54 Pulse Oximeter Continuous Start: 05/07/18 16: 01 Freq: RTQ4 Status: Discharge Document 05/11/18 16:12 HCR (Rec: 05/11/18 16:12 HCR [email or web address]) Pulse Oximetry Assessment Oxygen Saturation (92-100) 95 Oxygen Delivery Method Room Air Fraction of Inspired Oxygen (FIO2) 21 Equipment Usage Equipment in Use Continuous SpO2 Machine # 11 General appearance: PRESENT: no acute distress, cooperative, disheveled Head exam: PRESENT: atraumatic, normocephalic Eye exam: PRESENT: conjunctiva pale, EOMI. ABSENT: nystagmus, periorbital swelling, scleral icterus Mouth exam: PRESENT: moist, neck supple, tongue midline Neck exam: ABSENT: carotid bruit, JVD, lymphadenopathy, thyromegaly, tracheal deviation, tracheostomy Respiratory exam: PRESENT: decreased breath sounds, prolonged expiratory phas, rhonchi, unlabored, wheezes - Scattered. ABSENT: rales, retraction, stridor Cardiovascular exam: PRESENT: RRR, +S1, +S2 Pulses: PRESENT: normal radial pulses GI/Abdominal exam: PRESENT: hypoactive bowel sounds, soft Extremities exam: ABSENT: calf tenderness, clubbing, joint swelling Musculoskeletal exam: ABSENT: deformity, dislocation Neurological exam: PRESENT: awake Psychiatric exam: PRESENT: flat affect Skin exam: PRESENT: dry, warm Results Laboratory Results: 05/09/18 04:24 05/11/18 06:49 Impressions: Abdomen/Pelvis CTA 05/04/18 06:47 IMPRESSION: Dilated mid small bowel loops with air-fluid levels and adjacent small amount of free fluid. Findings are worrisome for closed loop small-bowel obstruction. Results discussed with Dr. Underwood in the emergency room. Chest/Abdomen CTA 05/06/18 12:00 IMPRESSION: NORMAL CTA OF THE CHEST. NO PULMONARY EMBOLI. MILD SCATTERED ATELECTASIS. Chest X-Ray 05/11/18 00:00 IMPRESSION: Borderline cardiomegaly with no CHF. Assessment & Plan - Diagnosis (1) Asthma exacerbation attacks Qualifiers: Asthma severity: moderate Is this a current diagnosis for this admission?: Yes Plan: initiate spireva Generic Name Dose Route Start Last Admin Trade Name Freq PRN Reason Stop Dose Admin Levalbuterol HCl 1.25 mg 05/06/18 14:00 05/07/18 08:02 Xopenex Neb 1.25 Mg/3 Ml Ampul NEB 06/05/18 13:59 1.25 mg RTQ6 KLEVER Fluticasone/Salmeterol 1 inh 05/05/18 22:00 05/07/18 09:37 Advair 100-50 Diskus 14 Dose/Diskus IH 06/04/18 21:59 1 inh Q12 KLEVER Fluticasone Propionate 1 spray 05/06/18 10:00 05/07/18 09:37 Flonase Nasal Corrigan 50 Mcg/Corrigan 16 Gm NAREB 06/05/18 09:59 1 spray DAILY KLEVER (2) GERD (gastroesophageal reflux disease) Qualifiers: Esophagitis presence: esophagitis presence not specified Qualified Code(s) : K21.9 - Gastro-esophageal reflux disease without esophagitis Is this a current diagnosis for this admission?: Yes (3) Hyperlipidemia Qualifiers: Hyperlipidemia type: pure hypercholesterolemia Qualified Code(s): E78.00 - Pure hypercholesterolemia, unspecified; E78.0 - Pure hypercholesterolemia Is this a current diagnosis for this admission?: Yes
--- NOTE | 2018-05-13 17:41 | PDOC PROGRESS REPORT ---
Subjective Progress Note for:: 05/11/18 Subjective:: Confused Reason For Visit: SMALL BOWEL OBSTRUCTION Physical Exam Vital Signs: Temp Pulse Resp BP Pulse Ox 98.2 F 96 16 125/46 L 95 05/11/18 17:54 05/11/18 17:54 05/11/18 17:54 05/11/18 17:54 05/11/18 17:54 Pulse Oximeter Continuous Start: 05/07/18 16: 01 Freq: RTQ4 Status: Discharge Document 05/11/18 16:12 HCR (Rec: 05/11/18 16:12 HCR [email or web address]) Pulse Oximetry Assessment Oxygen Saturation (92-100) 95 Oxygen Delivery Method Room Air Fraction of Inspired Oxygen (FIO2) 21 Equipment Usage Equipment in Use Continuous SpO2 Machine # 11 General appearance: PRESENT: no acute distress, cooperative, disheveled Head exam: PRESENT: atraumatic, normocephalic Eye exam: PRESENT: conjunctiva pale, EOMI. ABSENT: nystagmus, periorbital swelling, scleral icterus Mouth exam: PRESENT: moist, neck supple, tongue midline Neck exam: ABSENT: carotid bruit, JVD, lymphadenopathy, thyromegaly, tracheal deviation, tracheostomy Respiratory exam: PRESENT: decreased breath sounds, prolonged expiratory phas, rhonchi, unlabored, wheezes. ABSENT: rales, retraction, stridor Cardiovascular exam: PRESENT: RRR, +S1, +S2 Pulses: PRESENT: normal radial pulses GI/Abdominal exam: PRESENT: hypoactive bowel sounds, soft Extremities exam: ABSENT: calf tenderness, clubbing, joint swelling Musculoskeletal exam: ABSENT: deformity, dislocation Neurological exam: PRESENT: awake Psychiatric exam: PRESENT: flat affect Skin exam: PRESENT: dry, warm Results Laboratory Results: 05/09/18 04:24 05/11/18 06:49 Impressions: Abdomen/Pelvis CTA 05/04/18 06:47 IMPRESSION: Dilated mid small bowel loops with air-fluid levels and adjacent small amount of free fluid. Findings are worrisome for closed loop small-bowel obstruction. Results discussed with Dr. Underwood in the emergency room. Chest/Abdomen CTA 05/06/18 12:00 IMPRESSION: NORMAL CTA OF THE CHEST. NO PULMONARY EMBOLI. MILD SCATTERED ATELECTASIS. Chest X-Ray 05/11/18 00:00 IMPRESSION: Borderline cardiomegaly with no CHF. Assessment & Plan - Diagnosis (1) Asthma exacerbation attacks Qualifiers: Asthma severity: moderate Is this a current diagnosis for this admission?: Yes Plan: initiate spireva Generic Name Dose Route Start Last Admin Trade Name Freq PRN Reason Stop Dose Admin Levalbuterol HCl 1.25 mg 05/06/18 14:00 05/07/18 08:02 Xopenex Neb 1.25 Mg/3 Ml Ampul NEB 06/05/18 13:59 1.25 mg RTQ6 KLEVER Fluticasone/Salmeterol 1 inh 05/05/18 22:00 05/07/18 09:37 Advair 100-50 Diskus 14 Dose/Diskus IH 06/04/18 21:59 1 inh Q12 KLEVER Fluticasone Propionate 1 spray 05/06/18 10:00 05/07/18 09:37 Flonase Nasal Boomer 50 Mcg/Boomer 16 Gm NAREB 06/05/18 09:59 1 spray DAILY KLEVER (2) GERD (gastroesophageal reflux disease) Qualifiers: Esophagitis presence: esophagitis presence not specified Qualified Code(s) : K21.9 - Gastro-esophageal reflux disease without esophagitis Is this a current diagnosis for this admission?: Yes (3) Hyperlipidemia Qualifiers: Hyperlipidemia type: pure hypercholesterolemia Qualified Code(s): E78.00 - Pure hypercholesterolemia, unspecified; E78.0 - Pure hypercholesterolemia Is this a current diagnosis for this admission?: Yes
--- NOTE | 2018-05-15 20:18 | PDOC PROGRESS REPORT ---
Subjective Progress Note for:: 05/15/18 Subjective:: Confused Reason For Visit: SMALL BOWEL OBSTRUCTION Physical Exam Vital Signs: Temp Pulse Resp BP Pulse Ox 98.2 F 96 16 125/46 L 95 05/11/18 17:54 05/11/18 17:54 05/11/18 17:54 05/11/18 17:54 05/11/18 17:54 Pulse Oximeter Continuous Start: 05/07/18 16: 01 Freq: RTQ4 Status: Discharge Document 05/11/18 16:12 HCR (Rec: 05/11/18 16:12 HCR [email or web address]) Pulse Oximetry Assessment Oxygen Saturation (92-100) 95 Oxygen Delivery Method Room Air Fraction of Inspired Oxygen (FIO2) 21 Equipment Usage Equipment in Use Continuous SpO2 Machine # 11 General appearance: PRESENT: no acute distress, cooperative, disheveled Head exam: PRESENT: atraumatic, normocephalic Eye exam: PRESENT: conjunctiva pale, EOMI. ABSENT: nystagmus Mouth exam: PRESENT: moist, neck supple, tongue midline Neck exam: ABSENT: carotid bruit, JVD, lymphadenopathy, thyromegaly, tracheal deviation, tracheostomy Respiratory exam: PRESENT: decreased breath sounds, prolonged expiratory phas, rhonchi, unlabored. ABSENT: rales, retraction, stridor, tachypnea Cardiovascular exam: PRESENT: RRR, +S1 Pulses: PRESENT: normal radial pulses GI/Abdominal exam: PRESENT: normal bowel sounds, soft Extremities exam: ABSENT: calf tenderness, clubbing, joint swelling Musculoskeletal exam: ABSENT: deformity Neurological exam: PRESENT: awake, oriented to person, oriented to place. ABSENT: oriented to time, oriented to situation Psychiatric exam: PRESENT: flat affect Skin exam: PRESENT: dry, warm Results Laboratory Results: 05/09/18 04:24 05/11/18 06:49 Impressions: Abdomen/Pelvis CTA 05/04/18 06:47 IMPRESSION: Dilated mid small bowel loops with air-fluid levels and adjacent small amount of free fluid. Findings are worrisome for closed loop small-bowel obstruction. Results discussed with Dr. Underwood in the emergency room. Chest/Abdomen CTA 05/06/18 12:00 IMPRESSION: NORMAL CTA OF THE CHEST. NO PULMONARY EMBOLI. MILD SCATTERED ATELECTASIS. Chest X-Ray 05/11/18 00:00 IMPRESSION: Borderline cardiomegaly with no CHF. Assessment & Plan - Diagnosis (1) Asthma exacerbation attacks Qualifiers: Asthma severity: moderate Is this a current diagnosis for this admission?: Yes Plan: at near baseline (2) GERD (gastroesophageal reflux disease) Qualifiers: Esophagitis presence: esophagitis presence not specified Qualified Code(s) : K21.9 - Gastro-esophageal reflux disease without esophagitis Is this a current diagnosis for this admission?: Yes Plan: ppi (3) Hyperlipidemia Qualifiers: Hyperlipidemia type: pure hypercholesterolemia Qualified Code(s): E78.00 - Pure hypercholesterolemia, unspecified; E78.0 - Pure hypercholesterolemia Is this a current diagnosis for this admission?: Yes
--- NOTE | 2018-05-15 20:20 | PDOC PROGRESS REPORT ---
Subjective Progress Note for:: 05/14/18 Subjective:: Confused Reason For Visit: SMALL BOWEL OBSTRUCTION Physical Exam Vital Signs: Temp Pulse Resp BP Pulse Ox 98.2 F 96 16 125/46 L 95 05/11/18 17:54 05/11/18 17:54 05/11/18 17:54 05/11/18 17:54 05/11/18 17:54 Pulse Oximeter Continuous Start: 05/07/18 16: 01 Freq: RTQ4 Status: Discharge Document 05/11/18 16:12 HCR (Rec: 05/11/18 16:12 HCR [email or web address]) Pulse Oximetry Assessment Oxygen Saturation (92-100) 95 Oxygen Delivery Method Room Air Fraction of Inspired Oxygen (FIO2) 21 Equipment Usage Equipment in Use Continuous SpO2 Machine # 11 General appearance: PRESENT: no acute distress, cooperative, disheveled Head exam: PRESENT: atraumatic, normocephalic Eye exam: PRESENT: conjunctiva pale, EOMI. ABSENT: nystagmus, periorbital swelling Mouth exam: PRESENT: moist, neck supple, tongue midline Neck exam: ABSENT: carotid bruit, JVD, lymphadenopathy, thyromegaly, tracheal deviation, tracheostomy Respiratory exam: PRESENT: decreased breath sounds, prolonged expiratory phas, rhonchi, unlabored, wheezes. ABSENT: rales, retraction, stridor Cardiovascular exam: PRESENT: RRR, +S1, +S2 Pulses: PRESENT: normal radial pulses GI/Abdominal exam: PRESENT: normal bowel sounds, soft Extremities exam: ABSENT: calf tenderness, clubbing, joint swelling Musculoskeletal exam: ABSENT: deformity, dislocation Neurological exam: PRESENT: awake, oriented to person, oriented to place. ABSENT: oriented to time, oriented to situation Psychiatric exam: PRESENT: flat affect Skin exam: PRESENT: dry, warm Results Laboratory Results: 05/09/18 04:24 05/11/18 06:49 Impressions: Abdomen/Pelvis CTA 05/04/18 06:47 IMPRESSION: Dilated mid small bowel loops with air-fluid levels and adjacent small amount of free fluid. Findings are worrisome for closed loop small-bowel obstruction. Results discussed with Dr. Underwood in the emergency room. Chest/Abdomen CTA 05/06/18 12:00 IMPRESSION: NORMAL CTA OF THE CHEST. NO PULMONARY EMBOLI. MILD SCATTERED ATELECTASIS. Chest X-Ray 05/11/18 00:00 IMPRESSION: Borderline cardiomegaly with no CHF. Assessment & Plan - Diagnosis (1) Asthma exacerbation attacks Qualifiers: Asthma severity: moderate Is this a current diagnosis for this admission?: Yes Plan: at near baseline (2) GERD (gastroesophageal reflux disease) Qualifiers: Esophagitis presence: esophagitis presence not specified Qualified Code(s) : K21.9 - Gastro-esophageal reflux disease without esophagitis Is this a current diagnosis for this admission?: Yes Plan: ppi (3) Hyperlipidemia Qualifiers: Hyperlipidemia type: pure hypercholesterolemia Qualified Code(s): E78.00 - Pure hypercholesterolemia, unspecified; E78.0 - Pure hypercholesterolemia Is this a current diagnosis for this admission?: Yes
--- NOTE | 2018-06-15 21:40 | DISCHARGE SUMMARY E ---
Discharge Summary NAME: MATHEW BOUDREAUX : 1930 AGE: 87Y ADMITTED: 05/04/2018 DISCHARGED: 05/11/2018 FINAL DIAGNOSIS: SMALL BOWEL VOLVULUS. PROCEDURE: Exploratory laparotomy 05/04/18 with findings of hyperemic jejunum and ileum and incidental appendectomy. SURGEON: Dr. Galvan. HOSPITAL COURSE: Patient postoperative gradually improved. The biopsy came back as essentially normal appendix. She then had a good bowel movement on 05/09/18 and tolerating regular diet. She was then discharged improved on 05/11/18 with final diagnosis of small bowel volvulus. Patient to be followed up in the surgical clinic in 2 weeks *------* was seen by Medicine care of Dr. Wakefield and Dr. Denney. Patient advised not to do any lifting more than 10 pounds for the next 2 weeks. DICTATING PHYSICIAN: MARK GORDON M.D. [id number] PHY#: [id number] ID: [id number] JOB#: [id number] ACCT: [id number] cc:Katina NELSON M.D. >
== END 2018-05-11 18:57 | disposition home health service (06) | DRG 342 ==
LOC: ER 05:46 → EH 09:32 → INOR 10:10 → 4S 14:18
PROVIDERS: ADMIT Surgery; ATTEND Surgery
PROC: 0D9670Z Drainage of Stomach with Drainage Device, Via Natural or Artificial Opening (ICD-10-PCS; 2018-05-04)
PROC: 5A09457 Assistance with Respiratory Ventilation, 24-96 Consecutive Hours, Continuous Positive Airway Pressure (ICD-10-PCS; 2018-05-04)
PROC: 0DTJ4ZZ Resection of Appendix, Percutaneous Endoscopic Approach (ICD-10-PCS; principal; 2018-05-04 10:45)
PROC: 3E0F73Z Introduction of Anti-inflammatory into Respiratory Tract, Via Natural or Artificial Opening (ICD-10-PCS; 2018-05-05)
DX: K56.2 Volvulus (principal); J45.41 Moderate persistent asthma with (acute) exacerbation; R18.8 Other ascites; J44.1 Chronic obstructive pulmonary disease with (acute) exacerbation; E78.00 Pure hypercholesterolemia, unspecified; I11.0 Hypertensive heart disease with heart failure; K21.9 Gastro-esophageal reflux disease without esophagitis; M19.90 Unspecified osteoarthritis, unspecified site; D64.9 Anemia, unspecified; Z86.73 Personal history of transient ischemic attack (TIA), and cerebral infarction without residual deficits; Z79.82 Long term (current) use of aspirin; Z79.52 Long term (current) use of systemic steroids; Z79.899 Other long term (current) drug therapy; Z82.49 Family history of ischemic heart disease and other diseases of the circulatory system
CPT/HCPCS: 36415; 36600; 71045; 71046; 71275; 74174; 790; 80048; 80053; 81001; 82803; 83605; 83690; 85025; 85027; 87040; 87070; 87086; 87205; 88302; 93005; 93010; 93306; 94640; 94660; 94762; 94799; 99285; C9290; J0131; J0330; J0694; J1170; J1940; J1956; J2250; J2270; J2405; J2543; J2704; J2920; J2930; J3010; J3490; J7030; J7120; J7512; J7620; S0028

== ENCOUNTER → 2018-05-22 | Outpatient (CLI) | payer MEDICARE, MEDICAID ==
--- NOTE | 2018-05-22 13:02 | RADIOLOGY REPORT (SQ) ---
EXAM DESCRIPTION: CHEST PA/LATERAL COMPLETED DATE/TIME: 05/22/2018 12:37 pm REASON FOR STUDY: COPD;UNSPECIFIED COMPARISON: CT chest 11/19/2017, 05/06/2018 Chest films 05/05/2018, 05/11/2018 EXAM PARAMETERS: NUMBER OF VIEWS: two views TECHNIQUE: Digital Frontal and Lateral radiographic views of the chest acquired. RADIATION DOSE: NA LIMITATIONS: none FINDINGS: LUNGS AND PLEURA: Minimal left basilar atelectasis. No acute infiltrates. No pleural eff usion. No pneumothorax. MEDIASTINUM AND HILAR STRUCTURES: No masses or contour abnormalities. HEART AND VASCULAR STRUCTURES: Heart normal size. No evidence for failure. BONES: Osteoporotic. Convex rightward thoracic curvature. HARDWARE: None in the chest. OTHER: No other significant finding. IMPRESSION: Minimal left basilar atelectasis. TECHNICAL DOCUMENTATION: JOB ID: [id number] [employer]- All Rights Reserved Reading location - IP/workstation name: [email or web address]
== END ==
LOC: OD 12:17
PROVIDERS: ATTEND Family Medicine
DX: J44.9 Chronic obstructive pulmonary disease, unspecified (principal)
CPT/HCPCS: 71046

== ENCOUNTER → 2018-12-03 | Outpatient (CLI) | payer MEDICARE, MEDICAID ==
--- NOTE | 2018-12-03 12:15 | RADIOLOGY REPORT (SQ) ---
EXAM DESCRIPTION: LUMBAR SPINE COMPLETE COMPLETED DATE/TIME: 12/03/2018 11:39 am REASON FOR STUDY: LOW BACK PAIN (M54.5) M54.5 LOW BACK PAIN COMPARISON: None. NUMBER OF VIEWS: Five views including obliques. TECHNIQUE: AP, lateral, oblique, and sacral radiographic images acquired of the lumbar spine. LIMITATIONS: None. FINDINGS: MINERALIZATION: Osteopenia. SEGMENTATION: Normal. No transitional anatomy. ALIGNMENT: Scoliosis, apex to the left. Minimal anterolisthesis of L4 on L5. VERTEBRAE: Maintained height. No fracture or worrisome bone lesion. DISCS: Multilevel disc space narrowing, more pronounced at L5-S1 with slight vacuum phenomenon noted . POSTERIOR ELEMENTS: Facet arthrosis, lower lumbar spine. Pedicles are intact. No pars defect or po sterior arch defects. HARDWARE: None in the spine. PARASPINAL SOFT TISSUES: Normal. PELVIS: Intact as visualized. No fractures or worrisome bone lesions. SI joints intact. OTHER: Atherosclerotic changes involving the abdominal aorta. IMPRESSION: 1. Generalized osteopenia. No acute osseous findings. 2. Levoconvex scoliosis and degenerative disc disease at L5-S1. TECHNICAL DOCUMENTATION: JOB ID: [id number] [employer]- All Rights Reserved Reading location - IP/workstation name: [email or web address]
== END ==
LOC: OD 11:02
PROVIDERS: ATTEND Family Medicine
DX: M54.5 Low back pain (principal); M85.88 Other specified disorders of bone density and structure, other site; M51.37 Other intervertebral disc degeneration, lumbosacral region; M41.86 Other forms of scoliosis, lumbar region
CPT/HCPCS: 72110

== ENCOUNTER 2019-10-31 16:30 | Inpatient (IN) | payer MEDICARE, MEDICAID ==
[2019-10-31] MEDS ORDERED: ONDANSETRON HCL INJ/PF 4 MG/2 ML SDV IV ONE (17:22)
[2019-10-31] MEDS ORDERED: MORPHINE SULFATE 10 MG/ML INJ IV ONE (17:22)
--- NOTE | 2019-10-31 17:24 | ER Document Report ---
ED Medical Screen (RME) - General Chief Complaint: Abdominal Problem Stated Complaint: REVISIT/ABDOMINAL PAIN Time Seen by Provider: 10/31/19 17:15 Primary Care Provider: TERESITA HICKS MD [Primary Care Provider] - Follow up as needed Mode of Arrival: Ambulatory Information source: Patient Notes: 89-year-old female patient presenting to the emergency department with a known umbilical hernia. Patient was seen in this emergency department yesterday, she had a full work-up done including CT abdomen pelvis which showed a incarcerated umbilical hernia. This was reduced yesterday in the ED, Dr. Dolan came down to the ED and consulted on her, see his notes. Since the hernia was reduced the plan was to discharge her home and plan for outpatient treatment on Monday. She returns to the ED now stating that the pain is worse on the umbilical has come back out again. I attempted to call Dr. Dolan from the triage area, unfortunately he has any case at this time. Will initiate basic work-up on this patient, I will not repeat a CT at this time considering she just had one done yesterday. Exam: Palpable hernia noted in the umbilical area, pain with any minor palpation. I have greeted and performed a rapid initial assessment of this patient. A comprehensive ED assessment and evaluation of the patient, analysis of test results and completion of the medical decision making process will be conducted by additional ED providers. I have specifically instructed the patient or family members with the patient to immediately return to any nursing staff sh ould anything change in the patient's condition or with their chief complaint. This medical record was dictated with voice recognizing software. There may be grammatical, syntax errors that are unintended. TRAVEL OUTSIDE OF THE [place] IN LAST 30 DAYS: No - Related Data Allergies/Adverse Reactions: No Known Allergies Allergy (Verified 10/29/19 21:57) Past Medical History - Past Medical History Cardiac Medical History: Reports: Hx Hypercholesterolemia, Hx Hypertension Denies: Hx Coronary Artery Disease, Hx Heart Attack Pulmonary Medical History: Denies: Hx Asthma, Hx Bronchitis, Hx COPD, Hx Pneumonia Neurological Medical History: Reports: Hx Cerebrovascular Accident - 2007 right side weaker. Denies: Hx Seizures Renal/ Medical History: Denies: Hx Peritoneal Dialysis GI Medical History: Reports: Hx Gastroesophageal Reflux Disease Musculoskeltal Medical History: Reports Hx Arthritis Psychiatric Medical History: Denies: Hx Depression Past Surgical History: Reports: Other - Exploratory laparotomy and appendectomy 2018. Denies: Hx Hysterectomy - Immunizations Hx Diphtheria, Pertussis, Tetanus Vaccination: No Physical Exam - Vital signs Vitals: Temp Pulse Resp BP Pulse Ox 98.9 F 92 18 144/63 H 95 10/31/19 16:38 10/31/19 16:38 10/31/19 16:38 10/31/19 16:38 10/31/19 16:38 Course - Vital Signs Vital signs: Temp Pulse Resp BP Pulse Ox 98.9 F 92 18 144/63 H 95 10/31/19 17:15 10/31/19 17:15 10/31/19 17:15 10/31/19 17:15 10/31/19 17:15 Doctor's Discharge - Discharge Referrals: TERESITA HICKS MD [Primary Care Provider] - Follow up as needed
[2019-10-31 18:15] LABS: ABSOLUTE EOSINOPHILS # (AUTO) 0.2 10^3/uL (0.0-0.6); ABSOLUTE LYMPHOCYTES (AUTO) 2.4 10^3/uL (0.5-4.7); ABSOLUTE MONOCYTES (AUTO) 0.6 10^3/uL (0.1-1.4); ABSOLUTE NEUT (AUTO) 4.7 10^3/uL (1.7-8.2); BASOPHILS % (AUTO) 0.5 % (0-2); EOSINOPHILS % (AUTO) 2.4 % (0-6); HEMATOCRIT 39.2 % (36.0-47.0); LYMPHOCYTES % (AUTO) 30.6 % (13-45); MEAN CORPUSCULAR HGB CONC 33.6 g/dL (32.0-36.0); MEAN CORPUSCULAR VOLUME 89 fl (80-97); PLATELET COUNT 274 10^3/uL (150-450); RED BLOOD COUNT 4.39 10^6/uL (3.72-5.28); RED CELL DISTRIBUTION WIDTH 14.5 % (11.5-14.0); SEGMENTED NEUTROPHILS % (AUTO) 59.5 % (42-78); TOTAL CELLS COUNTED % (AUTO) 100 %; WHITE BLOOD COUNT 7.9 10^3/uL (4.0-10.5)
[2019-10-31 18:16] LABS: HEMOGLOBIN 13.2 g/dL (12.0-15.5)
[2019-10-31 18:38] LABS: ALBUMIN 4.2 g/dL (3.5-5.0); ALKALINE PHOSPHATASE 139 U/L (38-126); ANION GAP 10 (5-19); ASPARTATE AMINO TRANSFERASE 43 U/L (14-36); BILIRUBIN,DIRECT 0.2 mg/dL (0.0-0.4); BILIRUBIN,TOTAL 0.4 mg/dL (0.2-1.3); BLOOD UREA NITROGEN 15 mg/dL (7-20); CALCIUM 9.3 mg/dL (8.4-10.2); CARBON DIOXIDE 30 mmol/L (22-30); CHLORIDE 101 mmol/L (98-107); GLUCOSE 106 mg/dL (75-110); TOTAL PROTEIN 7.1 g/dL (6.3-8.2)
--- NOTE | 2019-10-31 19:41 | ER Document Report ---
ED GI/ - General Chief Complaint: Abdominal Problem Stated Complaint: REVISIT/ABDOMINAL PAIN Time Seen by Provider: 10/31/19 17:15 Primary Care Provider: TERESITA HICKS MD [Primary Care Provider] - Follow up as needed Mode of Arrival: Ambulatory Information source: Patient Notes: 89-year-old female patient presenting to the emergency department with a known umbilical hernia. Patient was seen in this emergency department yesterday, she had a full work-up done including CT abdomen pelvis which showed a incarcerated umbilical hernia. This was reduced yesterday in the ED, Dr. Dolan came down to the ED and consulted on her, see his notes. Since the hernia was reduced the plan was to discharge her home and plan for outpatient treatment on Monday. She returns to the ED now stating that the pain is worse on the umbilical has come back out again. TRAVEL OUTSIDE OF THE [place] IN LAST 30 DAYS: No - Related Data Allergies/Adverse Reactions: No Known Allergies Allergy (Verified 10/29/19 21:57) Past Medical History - General Information source: Patient - Social History Smoking Status: Never Smoker Frequency of alcohol use: None Drug Abuse: None Lives with: Alone Family History: Reviewed & Not Pertinent, CAD, Hypertension Patient has suicidal ideation: No Patient has homicidal ideation: No - Past Medical History Cardiac Medical History: Reports: Hx Hypercholesterolemia, Hx Hypertension Denies: Hx Coronary Artery Disease, Hx Heart Attack Pulmonary Medical History: Denies: Hx Asthma, Hx Bronchitis, Hx COPD, Hx Pneumonia Neurological Medical History: Reports: Hx Cerebrovascular Accident - 2008 right side weaker. Denies: Hx Seizures Renal/ Medical History: Denies: Hx Peritoneal Dialysis GI Medical History: Reports: Hx Gastroesophageal Reflux Disease Musculoskeletal Medical History: Reports Hx Arthritis Psychiatric Medical History: Denies: Hx Depression Past Surgical History: Reports: Other - Exploratory laparotomy and appendectomy 2018. Denies: Hx Hysterectomy - Immunizations Hx Diphtheria, Pertussis, Tetanus Vaccination: No Review of Systems - Review of Systems Constitutional: No symptoms reported EENT: No symptoms reported Cardiovascular: No symptoms reported Respiratory: No symptoms reported Gastrointestinal: Abdominal pain, Nausea, Vomiting Genitourinary: No symptoms reported Female Genitourinary: No symptoms reported Musculoskeletal: No symptoms reported Skin: No symptoms reported Hematologic/Lymphatic: No symptoms reported Neurological/Psychological: No symptoms reported Physical Exam - Vital signs Vitals: Temp Pulse Resp BP Pulse Ox 98.9 F 92 18 144/63 H 95 10/31/19 16:38 10/31/19 16:38 10/31/19 16:38 10/31/19 16:38 10/31/19 16:38 - Notes Notes: PHYSICAL EXAMINATION: GENERAL: Well-appearing, well-nourished, appears younger than stated age, in mild distress. HEAD: Atraumatic, normocephalic. EYES: Pupils equal round and reactive to light, extraocular movements intact, conjunctiva are normal. ENT: Nares patent, oropharynx clear without exudates. Moist mucous membranes. NECK: Normal range of motion, supple without lymphadenopathy LUNGS: Breath sounds clear to auscultation bilaterally and equal. No wheezes rales or rhonchi. HEART: Regular rate and rhythm without murmurs ABDOMEN: Palpable umbilical hernia. Female : deferred Musculoskeletal: Normal range of motion, no pitting or edema. No cyanosis. NEUROLOGICAL: Cranial nerves grossly intact. Normal speech, normal gait. Normal sensory, motor exams PSYCH: Normal mood, normal affect. SKIN: Warm, Dry, normal turgor, no rashes or lesions noted. Course - Re-evaluation Re-evalutation: 10/31/19 19:46 Dr. Dolan came to the bedside and agrees to admit patient to his service. He did asked that we place orders for CT abdomen pelvis with IV and oral contrast, orders placed. Patient agreeable to plan to be admitted for surgery tomorrow. - Vital Signs Vital signs: Temp Pulse Resp BP Pulse Ox 98.9 F 92 18 144/63 H 95 10/31/19 17:15 10/31/19 17:15 10/31/19 17:15 10/31/19 17:15 10/31/19 17:15 - Laboratory Result Diagrams: 10/31/19 17:35 10/31/19 17:35 Laboratory results interpreted by me: 10/31/19 10/31/19 17:35 17:35 RDW 14.5 H Est GFR (MDRD) Non-Af 58 L AST 43 H Alkaline Phosphatase 139 H Discharge - Discharge Clinical Impression: Umbilical hernia Qualifiers: Obstruction and gangrene presence: with obstruction but without gangrene Qualified Code(s): K42.0 - Umbilical hernia with obstruction, without gangrene Abdominal pain Qualifiers: Abdominal location: generalized Qualified Code(s): R10.84 - Generalized abdominal pain Condition: Stable Disposition: ADMITTED INPATIENT Admitting Provider: Surgicalist - [facility] Unit Admitted: Surgical Floor Referrals: TERESITA HICKS MD [Primary Care Provider] - Follow up as needed
[2019-10-31 20:18] LABS: APPEARANCE,URINE CLEAR; BILIRUBIN,URINE NEGATIVE (NEGATIVE); COLOR,URINE STRAW; GLUCOSE, URINE NEGATIVE (NEGATIVE); KETONES,URINE NEGATIVE (NEGATIVE); LEUKOCYTE ESTERASE,URINE NEGATIVE (NEGATIVE); NITRITE,URINE NEGATIVE (NEGATIVE); PROTEIN,URINE NEGATIVE (NEGATIVE); URINE SPECIFIC GRAVITY 1.006; UROBILINOGEN,URINE NEGATIVE mg/dL (<2.0)
--- NOTE | 2019-10-31 21:17 | PDOC H&P ---
History of Present Illness Admission Date/PCP: 10/31/19 19:58 TERESITA HICKS MD Patient complains of: abdominal pains History of Present Illness: MATHEW BOUDREAUX is a 89 year old femalepost exploratory laparotomy in 2018 where she was noted to have a small bowel volvulus which was reduced intra-op and had appendectomy c/o abdominal pains initially 2 days ago and seen in ED yesterday morning where she has a reduced incisional/umbilical hernia. Had a CT scan prior which showed obstructing umbilical hernia. This was reduced by ER PA and when seen hernia has been reduced with patient's pain reduced. Daughter claims patient c/o abdominal pains today and when seen in ED noted to have a reducible incisional hernia that easily recurs. Past Medical History Cardiac Medical History: Reports: Hyperlipidema, Hypertension Denies: Coronary Artery Disease, Myocardial Infarction Pulmonary Medical History: Denies: Asthma, Bronchitis, Chronic Obstructive Pulmonary Disease (COPD), Pneumonia Neurological Medical History: Reports: Other Denies: Seizures GI Medical History: Reports: Gastroesophageal Reflux Disease Musculoskeltal Medical History: Reports: Arthritis Psychiatric Medical History: Denies: Depression Hematology: Reports: Anemia Past Surgical History Past Surgical History: Reports: Other - Exploratory laparotomy and appendectomy 2018 Denies: Hysterectomy Social History Lives with: Alone Smoking Status: Never Smoker Frequency of Alcohol Use: None Hx Recreational Drug Use: No Drugs: None Hx Prescription Drug Abuse: No Family History Family History: Reviewed & Not Pertinent, CAD, Hypertension Parental Family History Reviewed: Yes Children Family History Reviewed: No Sibling(s) Family History Reviewed.: No Medication/Allergy Home Medications: Albuterol Sulfate [Proair HFA Inhalation Aerosol 8.5 gm MDI] 2 puff IH Q6HP PRN 10/31/19 Amlodipine Besylate [Norvasc 5 mg Tablet] 5 mg PO DAILY 10/31/19 Atorvastatin Calcium [Lipitor 40 mg Tablet] 40 mg PO QHS 10/31/19 Fluticasone Propionate [Flonase Nasal [place] 50 Mcg/[place] 16 gm] 1 spray NASL DAILY 10/31/19 Allergies/Adverse Reactions: No Known Allergies Allergy (Verified 10/29/19 21:57) Review of Systems Constitutional: PRESENT: as per HPI Gastrointestinal: PRESENT: abdominal pain, nausea Physical Exam Vital Signs: Temp Pulse Resp BP Pulse Ox 98.9 F 92 18 144/63 H 95 12/19/19 17:15 10/31/19 17:15 10/31/19 17:15 10/31/19 17:15 10/31/19 17:15 Intake & Output 10/30/19 10/31/19 11/01/19 06:59 06:59 06:59 Weight 55.2 kg General appearance: PRESENT: mild distress Head exam: PRESENT: atraumatic Mouth exam: PRESENT: moist Neck exam: PRESENT: full ROM Respiratory exam: PRESENT: clear to auscultation nakia Cardiovascular exam: PRESENT: RRR Pulses: PRESENT: normal radial pulses GI/Abdominal exam: PRESENT: soft - Has a reducible incisional/umbilical hernia that easily recurs. Has mild pains at this area Rectal exam: PRESENT: deferred Extremities exam: PRESENT: full ROM Musculoskeletal exam: PRESENT: ambulatory Neurological exam: PRESENT: alert, oriented to person, oriented to place, oriented to time, oriented to situation Psychiatric exam: PRESENT: appropriate affect Skin exam: PRESENT: normal color, warm Results Laboratory Results: 10/31/19 17:35 10/31/19 17:35 10/31/19 10/31/19 10/31/19 17:35 17:35 19:42 WBC 7.9 RBC 4.39 Hgb 13.2 D Hct 39.2 MCV 89 MCH 30.0 MCHC 33.6 RDW 14.5 H Plt Count 274 Seg Neutrophils % 59.5 Sodium 141.2 Potassium 4.0 Chloride 101 Carbon Dioxide 30 Anion Gap 10 BUN 15 Creatinine 0.91 Est GFR ( Amer) > 60 Glucose 106 Calcium 9.3 Total Bilirubin 0.4 AST 43 H Alkaline Phosphatase 139 H Total Protein 7.1 Albumin 4.2 Urine Color STRAW Urine Appearance CLEAR Urine pH 7.0 Ur Specific [place] 1.006 Urine Protein NEGATIVE Urine Glucose (UA) NEGATIVE Urine Ketones NEGATIVE Urine Blood NEGATIVE Urine Nitrite NEGATIVE Ur Leukocyte Esterase NEGATIVE Urine WBC (Auto) 0 Urine RBC (Auto) 0 Assessment & Plan - Diagnosis (1) Recurrent incisional hernia with incarceration Is this a current diagnosis for this admission?: Yes (2) Bronchial asthma Is this a current diagnosis for this admission?: Yes - Time Time Spent: 30 to 50 Minutes - Inpatient Certification Medical Necessity: Need For IV Fluids, Need for Surgery - Plan Summary Plan Summary: 89-year-old female post explored rotatory laparotomy for small bowel volvulus that was not resected about 2 years ago. Patient did have appendectomy. Noted incarcerated incisional/umbilical hernia 2 days ago that was reduced and came back today for recurrent hernia. Plans, We will hydrate the patient tonight for repair of incisional/umbilical hernia tomorrow
--- NOTE | 2019-10-31 22:53 | RADIOLOGY REPORT (SQ) ---
EXAM DESCRIPTION: [facility]: CT ABDOMEN PELVIS WITH IV CONTRAST CLINICAL HISTORY: 89 years Female; abd pain TECHNIQUE: CT of the abdomen and pelvis using intravenous contrast. Oral contrast was administered. All CT scans at this facility use dose modulation, iterative reconstruction, and/or weight based dosing when appropriate to reduce radiation dose to as low as reasonably achievable. COMPARISON: CT 10/30/2019 FINDINGS: Abdomen: Liver:No focal lesions. No intrahepatic ductal distention. Gallbladder: Calcified gallstones as on prior exam. No adjacent edema. Pancreas:Within normal limits Spleen:Within normal limits Right kidney: Mild hydronephrosis with prominent extrarenal pelvis, new since prior exam. This may be due to extrinsic compression on the distal ureter. Left kidney: Mild hydronephrosis and prominent extrarenal pelvis, new since prior exam. This is likely due to external compression on the distal ureter. Adrenal glands:Within normal limits Vascular structures:Within normal limits Pelvis: Small bowel: Distention has significantly decreased since yesterday. Oral contrast is seen scattered throughout the small bowel and into the colon. There is still mild distention of several segments. There is also still umbilical hernia, with a slight caliber change of the small bowel herniating through the defect. Appendix: Not reliably identified. Colon: Oral contrast to the proximal descending colon. No significant distention. There is a small amount of fluid in the dependent portion of the pelvis, similar to prior exam. No free air. Bones: Mild levocurvature of the lumbar spine, associated with chronic degenerative changes as on prior study. No acute bone findings. Bladder: Nondistended There is laxity of the pelvic floor with at least partial prolapse of the rectum, uterus, and bladder. This is incompletely visualized on this exam. This is likely contributing to the mild hydronephrosis. IMPRESSION: 1. Decreased small bowel distention. There is still a herniated segment of small bowel at the umbilical hernia, although the bowel distention has improved. 2. Mild bilateral hydronephrosis/hydroureter, new since yesterday 3. Pelvic floor laxity (incompletely visualized)., with partial prolapse of rectum, uterus, and bladder. This is likely responsible for the hydronephrosis 4. No bowel perforation or abscess.
[2019-10-31] MEDS ORDERED: DEXTROSE 50%-WATER 25 GM/50 ML DISP.SYRIN IV PRN ×2 (23:42)
[2019-10-31] MEDS ORDERED: DEXTROSE 40% GEL 15 GM TUBE PO PRN ×2 (23:42)
[2019-10-31] MEDS ORDERED: GLUCAGON,HUMAN RECOMB 1 MG INJ SUBCUT PRN (23:42)
[2019-11-01] MEDS: DEXTROSE 5%-LACTATED RINGERS 1,000 ML IV PRN ×2 (00:14→10:17)
[2019-11-01] MEDS: KETOROLAC TROMETHAMINE INJ/PF 30 MG/1 ML SDV IV SCH ×3 (00:15→12:15)
--- NOTE | 2019-11-01 01:31 | RADIOLOGY REPORT (SQ) ---
EXAM DESCRIPTION: XR CHEST 1 VIEW COMPLETED DATE/TME: 10/31/2019 23:39 CLINICAL HISTORY: 89 years, Female, Medical clearance COMPARISON: X-ray chest 05/22/2018 NUMBER OF VIEWS: TECHNIQUE: LIMITATIONS: None. FINDINGS: There is possible emphysema. No evidence of pulmonary infiltrate or pleural effusion. There is mild left basilar scarring. The heart and mediastinum are unremarkable. Pulmonary vascularity appears normal. There are atherosclerotic changes and tortuosity of the thoracic aorta. IMPRESSION: Possible emphysema. copyright 2010 [employer]- All Rights Reserved
[2019-11-01 06:35] LABS: ABSOLUTE EOSINOPHILS # (AUTO) 0.2 10^3/uL (0.0-0.6); ABSOLUTE LYMPHOCYTES (AUTO) 2.7 10^3/uL (0.5-4.7); ABSOLUTE MONOCYTES (AUTO) 0.5 10^3/uL (0.1-1.4); ABSOLUTE NEUT (AUTO) 3.3 10^3/uL (1.7-8.2); BASOPHILS % (AUTO) 0.3 % (0-2); EOSINOPHILS % (AUTO) 3.1 % (0-6); HEMATOCRIT 38.1 % (36.0-47.0); HEMOGLOBIN 12.9 g/dL (12.0-15.5); MEAN CORPUSCULAR HEMOGLOBIN 30.2 pg (27.0-33.4); MEAN CORPUSCULAR HGB CONC 33.7 g/dL (32.0-36.0); MEAN CORPUSCULAR VOLUME 90 fl (80-97); MONOCYTES % (AUTO) 7.7 % (3-13); PLATELET COUNT 245 10^3/uL (150-450); RED BLOOD COUNT 4.26 10^6/uL (3.72-5.28); RED CELL DISTRIBUTION WIDTH 14.4 % (11.5-14.0); SEGMENTED NEUTROPHILS % (AUTO) 48.9 % (42-78); TOTAL CELLS COUNTED % (AUTO) 100 %; WHITE BLOOD COUNT 6.8 10^3/uL (4.0-10.5)
[2019-11-01 07:03] LABS: ALBUMIN 3.8 g/dL (3.5-5.0); ALKALINE PHOSPHATASE 91 U/L (38-126); ANION GAP 7 (5-19); ASPARTATE AMINO TRANSFERASE 37 U/L (14-36); BILIRUBIN,DIRECT 0.2 mg/dL (0.0-0.4); BILIRUBIN,TOTAL 0.6 mg/dL (0.2-1.3); BLOOD UREA NITROGEN 12 mg/dL (7-20); CALCIUM 9.3 mg/dL (8.4-10.2); CARBON DIOXIDE 32 mmol/L (22-30); CHLORIDE 102 mmol/L (98-107); GLUCOSE 96 mg/dL (75-110); POTASSIUM 4.1 mmol/L (3.6-5.0); TOTAL PROTEIN 6.6 g/dL (6.3-8.2)
[2019-11-01] MEDS: LEVALBUTEROL HCL NEB 1.25 MG/3 ML AMPUL NEB SCH ×3 (08:05→16:08)
--- NOTE | 2019-11-01 09:11 | PDOC CONSULTATION ---
Consultation Consult Date: 11/01/19 Attending physician:: SURGICAL SURGICALIST Provider Consulted: MARK GORDON Consult reason:: Medical management History of Present Illness Admission Date/PCP: 10/31/19 19:58 TERESITA HICKS MD Patient complains of: Incarceration Incisional hernia History of Present Illness: MATHEW BOUDREAUX is a 89 year old female This is a 89-year-old female's with a history of the COPD/asthma history of the arthritis came to the emergency department with the complaint of abdominal pain with the incisional hernia with a history of the volvulus in the past patients came to the ER twice patient was admitted and the surgical service currently hernia is reduced but patient is going for the hernia repair due to the recurr ent issues Patient is currently denied any chest pain no short of breath no wheezing no abdominal pain no nausea no vomiting Patients have echocardiogram done last year with normal EF with no other si gnificant abnormalities Patient have a significant history of the COPD/asthma requiring several kimi tments in the past currently all stable using the Advair and PRN nebulizer Reviewed the recent chest x-ray is all stable Past Medical History Cardiac Medical History: Reports: Hyperlipidema, Hypertension Denies: Coronary Artery Disease, Myocardial Infarction Pulmonary Medical History: Reports: Asthma, Chronic Obstructive Pulmonary Disease (COPD) Denies: Bronchitis, Pneumonia Neurological Medical History: Reports: Other Denies: Seizures GI Medical History: Reports: Gastroesophageal Reflux Disease Musculoskeltal Medical History: Reports: Arthritis Psychiatric Medical History: Denies: Depression Hematology: Reports: Anemia Past Surgical History Past Surgical History: Reports: Other - Exploratory laparotomy and appendectomy 2018 Denies: Hysterectomy Social History Information Source: Patient Lives with: Alone Smoking Status: Former Smoker Last Time Smoked: 50 years ago Frequency of Alcohol Use: None Hx Recreational Drug Use: No Drugs: None Hx Prescription Drug Abuse: No Family History Family History: Reviewed & Not Pertinent, CAD, Hypertension Parental Family History Reviewed: Yes Children Family History Reviewed: Yes Sibling(s) Family History Reviewed.: Yes Medication/Allergy Home Medications: Albuterol Sulfate [Proair HFA Inhalation Aerosol 8.5 gm MDI] 2 puff IH Q6HP PRN 10/31/19 Amlodipine Besylate [Norvasc 5 mg Tablet] 5 mg PO DAILY 10/31/19 Atorvastatin Calcium [Lipitor 40 mg Tablet] 40 mg PO QHS 10/31/19 Fluticasone Propionate [Flonase Nasal [place] 50 Mcg/[place] 16 gm] 1 spray NASL DAILY 10/31/19 Allergies/Adverse Reactions: No Known Allergies Allergy (Verified 10/29/19 21:57) Review of Systems Constitutional: ABSENT: chills, fever(s), headache(s), weight gain, weight loss Eyes: ABSENT: visual disturbances Ears: ABSENT: hearing changes Cardiovascular: ABSENT: chest pain, dyspnea on exertion, edema, orthropnea, palpitations Respiratory: ABSENT: cough, hemoptysis Gastrointestinal: ABSENT: abdominal pain, constipation, diarrhea, hematemesis, hematochezia, nausea, vomiting Genitourinary: ABSENT: dysuria, hematuria Musculoskeletal: ABSENT: joint swelling Integumentary: ABSENT: rash, wounds Neurological: ABSENT: abnormal gait, abnormal speech, confusion, dizziness, focal weakness, syncope Psychiatric: ABSENT: anxiety, depression, homidical ideation, suicidal ideation Endocrine: ABSENT: cold intolerance, heat intolerance, menstrual abnormalities, polydipsia, polyuria Hematologic/Lymphatic: ABSENT: easy bleeding, easy bruising, lymphadenopathy Physical Exam Vital Signs: Temp Pulse Resp BP Pulse Ox 98.1 F 62 16 153/62 H 96 11/01/19 07:24 11/01/19 08:05 11/01/19 08:05 11/01/19 07:24 11/01/19 08:05 Intake & Output 10/31/19 11/01/19 11/02/19 06:59 06:59 06:59 Output Total 300 300 Balance -300 -300 Weight 55.2 kg General appearance: PRESENT: no acute distress, well-developed, well-nourished Head exam: PRESENT: atraumatic, normocephalic Eye exam: PRESENT: conjunctiva pink, EOMI, PERRLA. ABSENT: scleral icterus Ear exam: PRESENT: normal external ear exam Mouth exam: PRESENT: moist, tongue midline Neck exam: PRESENT: full ROM. ABSENT: carotid bruit, JVD, lymphadenopathy, thyromegaly Respiratory exam: PRESENT: clear to auscultation nakia Cardiovascular exam: PRESENT: RRR. ABSENT: diastolic murmur, rubs, systolic murmur Pulses: PRESENT: normal dorsalis pedis pul, +2 pedal pulses bilateral Vascular exam: PRESENT: normal capillary refill GI/Abdominal exam: PRESENT: normal bowel sounds, soft. ABSENT: distended, guarding, mass, organolmegaly, rebound, tenderness Additonal comments: Incisional hernia currently all reduce Rectal exam: PRESENT: deferred Musculoskeletal exam: PRESENT: ambulatory Neurological exam: PRESENT: alert, awake, oriented to person, oriented to place, oriented to time, oriented to situation, CN II-XII grossly intact. ABSENT: motor sensory deficit Psychiatric exam: PRESENT: appropriate affect, normal mood. ABSENT: homicidal i deation, suicidal ideation Skin exam: PRESENT: dry, intact, warm. ABSENT: cyanosis, rash Results Laboratory Results: 11/01/19 05:50 11/01/19 05:50 10/31/19 10/31/19 10/31/19 17:35 17:35 19:42 WBC 7.9 RBC 4.39 Hgb 13.2 D Hct 39.2 MCV 89 MCH 30.0 MCHC 33.6 RDW 14.5 H Plt Count 274 Seg Neutrophils % 59.5 Sodium 141.2 Potassium 4.0 Chloride 101 Carbon Dioxide 30 Anion Gap 10 BUN 15 Creatinine 0.91 Est GFR ( Amer) > 60 Glucose 106 Calcium 9.3 Total Bilirubin 0.4 AST 43 H Alkaline Phosphatase 139 H Total Protein 7.1 Albumin 4.2 Urine Color STRAW Urine Appearance CLEAR Urine pH 7.0 Ur Specific [place] 1.006 Urine Protein NEGATIVE Urine Glucose (UA) NEGATIVE Urine Ketones NEGATIVE Urine Blood NEGATIVE Urine Nitrite NEGATIVE Ur Leukocyte Esterase NEGATIVE Urine WBC (Auto) 0 Urine RBC (Auto) 0 11/01/19 11/01/19 05:50 05:50 WBC 6.8 RBC 4.26 Hgb 12.9 Hct 38.1 MCV 90 MCH 30.2 MCHC 33.7 RDW 14.4 H Plt Count 245 Seg Neutrophils % 48.9 Sodium 141.0 Potassium 4.1 Chloride 102 Carbon Dioxide 32 H Anion Gap 7 BUN 12 Creatinine 0.96 Est GFR ( Amer) > 60 Glucose 96 Calcium 9.3 Total Bilirubin 0.6 AST 37 H Alkaline Phosphatase 91 Total Protein 6.6 Albumin 3.8 Urine Color Urine Appearance Urine pH Ur Specific [place] Urine Protein Urine Glucose (UA) Urine Ketones Urine Blood Urine Nitrite Ur Leukocyte Esterase Urine WBC (Auto) Urine RBC (Auto) Impressions: Abdomen/Pelvis CT 10/31/19 19:41 IMPRESSION: 1. Decreased small bowel distention. There is still a herniated segment of small bowel at the umbilical hernia, although the bowel distention has improved. 2. Mild bilateral hydronephrosis/hydroureter, new since yesterday 3. Pelvic floor laxity (incompletely visualized)., with partial prolapse of rectum, uterus, and bladder. This is likely responsible for the hydronephrosis 4. No bowel perforation or abscess. Chest X-Ray 10/31/19 23:39 IMPRESSION: Possible emphysema. copyright 2010 [employer]- All Rights Reserved Assessment & Plan - Diagnosis (1) Recurrent incisional hernia with incarceration Is this a current diagnosis for this admission?: Yes Plan: Follow-up with the surgery (2) Chronic obstructive pulmonary disease Qualifiers: COPD type: unspecified COPD Qualified Code(s): J44.9 - Chronic obstructive pulmonary disease, unspecified Is this a current diagnosis for this admission?: Yes Plan: Uses Xopenex nebulizer treatments before the surgery and after the surgery currently all stable Use incentive spirometry after the surgery (3) Asthma Qualifiers: Asthma persistence: unspecified Is this a current diagnosis for this admission?: Yes Plan: Patient is currently controlled with the Advair all stable (4) Osteoarthritis Qualifiers: Osteoarthritis location: multiple joints Is this a current diagnosis for this admission?: Yes Plan: Patient uses Voltaren gel (5) Hypertension Qualifiers: Hypertension type: essential hypertension Is this a current diagnosis for this admission?: Yes Plan: Currently all stable (6) Peptic ulcer disease Is this a current diagnosis for this admission?: Yes Plan: Use the Pepcid 20 mg IV twice a day then switch to the p.o. - Time Time Spent: 30 to 50 Minutes Medications reviewed and adjusted accordingly: Yes Anticipated discharge: Home Within: Other - Inpatient Certification Based on my medical assessment, after consideration of the patient's comorbidities, presenting symptoms, or acuity I expect that the services needed warrant INPATIENT care.: Yes I certify that my determination is in accordance with my understanding of Medic are's requirements for reasonable and necessary INPATIENT services [42 CFR 412.3e].: Yes Medical Necessity: Significant Comorbidiites Make Outpatient Treatment Too Risky, Need Close Monitoring Due to Risk of Patient Decompensation, Need for Surgery Post Hospital Care: D/C [employer] Worker Documentation - Plan Summary Plan Summary: Review the patient's current labs chest x-rays EKG all stable Review the echocardiogram in the last year was all stable Patient is currently all medically stable for the surgery discussed with the surgeon continues to nebulizer treatment pre-and post and incentive spirometry after the surgery and probably put on a monitored bed after the surgery
[2019-11-01 12:09] VITALS: BP 146/57
[2019-11-01] MEDS ORDERED: FENTANYL CITRATE INJ/PF 100 MCG/2 ML AMPUL ONE (15:13)
[2019-11-01] MEDS ORDERED: MIDAZOLAM 2 MG/2 ML INJ ONE (15:13)
[2019-11-01] MEDS ORDERED: ONDANSETRON HCL INJ/PF 4 MG/2 ML SDV ONE (15:14)
[2019-11-01] MEDS ORDERED: EPHEDRINE SULFATE INJ 50 MG/1 ML AMPULE ONE (15:14)
[2019-11-01] MEDS ORDERED: DEXAMETHASONE SOD PHOSPHATE INJ 4 MG/1 ML VIAL ONE (15:14)
[2019-11-01] MEDS ORDERED: PROPOFOL INJ 200 MG/20 ML VIAL IV ONE (15:14)
[2019-11-01] MEDS ORDERED: SUGAMMADEX SODIUM 200 MG/2 ML SDV IV ONE (15:14)
--- NOTE | 2019-11-01 16:03 | PDOC DISCHARGE SUMMARY ---
General - Admit/Disc Date/PCP Admission Date/Primary Care Provider: 10/31/19 19:58 TERESITA HICKS MD Discharge Date: 11/01/19 - Discharge Diagnosis Final Diagnosis: Incisional hernia - Assessment Summary: This is an 89-year-old female who was admitted to the emergency room last p.m. on 10/31/2019 for a incisional hernia that became incarcerated and spontaneously reduced. She was admitted to hospital for elective repair in the morning. Patient was brought down to surgery for elective repair and then refused surgery due to the risks that were being explained to her by anesthesiologist and general surgeon. Since the hernia is currently reduced she elects not to have it repaired at this time. She is therefore going to be discharged home today. - Additional Information Resuscitation Status: Full Code Discharge Diet: As Tolerated Discharge Activity: No Lifting Over 10 Pounds - Patient is a follow-up in surgery clinic in 2 to 3 weeks. Referrals: TERESITA HICKS MD [Primary Care Provider] - Follow up as needed Home Medications: Albuterol Sulfate [Proair HFA Inhalation Aerosol 8.5 gm MDI] 2 puff IH Q6HP PRN 10/31/19 Amlodipine Besylate [Norvasc 5 mg Tablet] 5 mg PO DAILY 10/31/19 Atorvastatin Calcium [Lipitor 40 mg Tablet] 40 mg PO QHS 10/31/19 Fluticasone Propionate [Flonase Nasal [place] 50 Mcg/[place] 16 gm] 1 spray NASL DAILY 10/31/19 History of Present Illiness History of Present Illness: MATHEW BOUDREAUX is a 89 year old female Physical Exam Vital Signs: Temp Pulse Resp BP Pulse Ox 98.1 F 96 16 146/57 H 96 11/01/19 13:16 11/01/19 13:16 11/01/19 13:16 11/01/19 13:16 11/01/19 13:16 Intake & Output 10/31/19 11/01/19 11/02/19 06:59 06:59 06:59 Intake Total 1000 Output Total 300 300 Balance -300 700 Weight 55.2 kg Results Laboratory Results: WBC 6.8 10^3/uL (4.0-10.5) 11/01/19 05:50 RBC 4.26 10^6/uL (3.72-5.28) 11/01/19 05:50 Hgb 12.9 g/dL (12.0-15.5) 11/01/19 05:50 Hct 38.1 % (36.0-47.0) 11/01/19 05:50 MCV 90 fl (80-97) 11/01/19 05:50 MCH 30.2 pg (27.0-33.4) 11/01/19 05:50 MCHC 33.7 g/dL (32.0-36.0) 11/01/19 05:50 RDW 14.4 % (11.5-14.0) H 11/01/19 05:50 Plt Count 245 10^3/uL (150-450) 11/01/19 05:50 Lymph % (Auto) 40.0 % (13-45) 11/01/19 05:50 [place] % (Auto) 7.7 % (3-13) 11/01/19 05:50 Eos % (Auto) 3.1 % (0-6) 11/01/19 05:50 Baso % (Auto) 0.3 % (0-2) 11/01/19 05:50 Absolute Neuts (auto) 3.3 10^3/uL (1.7-8.2) 11/01/19 05:50 Absolute Lymphs (auto) 2.7 10^3/uL (0.5-4.7) 11/01/19 05:50 Absolute Monos (auto) 0.5 10^3/uL (0.1-1.4) 11/01/19 05:50 Absolute Eos (auto) 0.2 10^3/uL (0.0-0.6) 11/01/19 05:50 Absolute Basos (auto) 0.0 10^3/uL (0.0-0.2) 11/01/19 05:50 Seg Neutrophils % 48.9 % (42-78) 11/01/19 05:50 Sodium 141.0 mmol/L (137-145) 11/01/19 05:50 Potassium 4.1 mmol/L (3.6-5.0) 11/01/19 05:50 Chloride 102 mmol/L (98-107) 11/01/19 05:50 Carbon Dioxide 32 mmol/L (22-30) H 11/01/19 05:50 Anion Gap 7 (5-19) 11/01/19 05:50 BUN 12 mg/dL (7-20) 11/01/19 05:50 Creatinine 0.96 mg/dL (0.52-1.25) 11/01/19 05:50 Est GFR ( Amer) > 60 (>60) 11/01/19 05:50 Est GFR (MDRD) Non-Af 55 (>60) L 11/01/19 05:50 Glucose 96 mg/dL (75-110) 11/01/19 05:50 Calcium 9.3 mg/dL (8.4-10.2) 11/01/19 05:50 Total Bilirubin 0.6 mg/dL (0.2-1.3) 11/01/19 05:50 Direct Bilirubin 0.2 mg/dL (0.0-0.4) 11/01/19 05:50 Neonat Total Bilirubin Not Reportable 11/01/19 05:50 Neonat Direct Bilirubin Not Reportable 11/01/19 05:50 Neonat Indirect Bili Not Reportable 11/01/19 05:50 AST 37 U/L (14-36) H 11/01/19 05:50 ALT 27 U/L (<35) 11/01/19 05:50 Alkaline Phosphatase 91 U/L (38-126) 11/01/19 05:50 Total Protein 6.6 g/dL (6.3-8.2) 11/01/19 05:50 Albumin 3.8 g/dL (3.5-5.0) 11/01/19 05:50 Urine Color STRAW 10/31/19 19:42 Urine Appearance CLEAR 10/31/19 19:42 Urine pH 7.0 (5.0-9.0) 10/31/19 19:42 Ur Specific [place] 1.006 10/31/19 19:42 Urine Protein NEGATIVE mg/dL (NEGATIVE) 10/31/19 19:42 Urine Glucose (UA) NEGATIVE mg/dL (NEGATIVE) 10/31/19 19:42 Urine Ketones NEGATIVE mg/dL (NEGATIVE) 10/31/19 19:42 Urine Blood NEGATIVE (NEGATIVE) 10/31/19 19:42 Urine Nitrite NEGATIVE (NEGATIVE) 10/31/19 19:42 Urine Bilirubin NEGATIVE (NEGATIVE) 10/31/19 19:42 Urine Urobilinogen NEGATIVE mg/dL (<2.0) 10/31/19 19:42 Ur Leukocyte Esterase NEGATIVE (NEGATIVE) 10/31/19 19:42 Urine WBC (Auto) 0 /HPF 10/31/19 19:42 Urine RBC (Auto) 0 /HPF 10/31/19 19:42 Squamous Epi Cells Auto <1 /HPF 10/31/19 19:42 Urine Mucus (Auto) RARE /LPF 10/31/19 19:42 Urine Ascorbic Acid NEGATIVE (NEGATIVE) 10/31/19 19:42 Impressions: Abdomen/Pelvis CT 10/31/19 19:41 IMPRESSION: 1. Decreased small bowel distention. There is still a herniated segment of small bowel at the umbilical hernia, although the bowel distention has improved. 2. Mild bilateral hydronephrosis/hydroureter, new since yesterday 3. Pelvic floor laxity (incompletely visualized)., with partial prolapse of rectum, uterus, and bladder. This is likely responsible for the hydronephrosis 4. No bowel perforation or abscess. Chest X-Ray 10/31/19 23:39 IMPRESSION: Possible emphysema. copyright 2010 [employer]- All Rights Reserved
--- NOTE | 2019-11-01 17:06 | EKG REPORT ---
SEVERITY:- NORMAL ECG - SINUS RHYTHM : Confirmed by: Yancy Guillen 01-Nov-2019 17:05:13
== END 2019-11-01 16:50 | disposition home or self-care (01) | DRG 394 ==
LOC: ER 16:30 → EH 19:58 → 2N 23:45
PROVIDERS: ADMIT Surgery; ATTEND Surgery
DX: K43.0 Incisional hernia with obstruction, without gangrene (principal); I69.351 Hemiplegia and hemiparesis following cerebral infarction affecting right dominant side; I10 Essential (primary) hypertension; J44.9 Chronic obstructive pulmonary disease, unspecified; E78.5 Hyperlipidemia, unspecified; K21.9 Gastro-esophageal reflux disease without esophagitis; K27.9 Peptic ulcer, site unspecified, unspecified as acute or chronic, without hemorrhage or perforation; M15.3 Secondary multiple arthritis; E78.00 Pure hypercholesterolemia, unspecified; Z60.2 Problems related to living alone; Z79.899 Other long term (current) drug therapy; Z87.891 Personal history of nicotine dependence
CPT/HCPCS: 36415; 71045; 74177; 80053; 81001; 83690; 85025; 93005; 93010; 94640; 96361; 96374; 96375; 99285; J1100; J1885; J2250; J2270; J2405; J2704; J3010; J3490; J7040; J7121; S0028; S0119